=== PATIENT | male | born 1980 | race Caucasian/White ===

== ENCOUNTER → 2018-10-20 | Outpatient (CLI) | payer SELFPAY ==
[~2018-10-20] MED LIST: ALPR-557 PO; ALPR.5T PO; CATHETER FLUSH 10 ML SYR IV PRN; FOLI0.4T2 PO; MULT-974 PO; PHN100C PO; ZINC30CA PO
--- NOTE | 2018-10-20 12:49 | Diagnostic Imaging Report ---
INDICATION: Bilious vomiting. TECHNIQUE: Patient was administered 5.2 mCi technetium 99m Choletec intravenously and imaging over the abdomen was performed. At one hour, patient ingested 8 ounces of Ensure and gallbladder ejection fraction was calculated. FINDINGS: There is homogeneous uptake of activity by the liver with prompt excretion of activity into the gallbladder and common duct. There is normal passage of activity into the small bowel. Gallbladder ejection fraction is normal at 42%. IMPRESSION: Normal HIDA scan and gallbladder ejection fraction. Dictated by: Dictated on workstation # [id number]
== END ==
LOC: CARD 08:43
PROVIDERS: ATTEND Nurse Practitioner Community Health
DX: R11.14 Bilious vomiting (principal)
CPT/HCPCS: 78227

== ENCOUNTER 2019-01-26 10:47 | Emergency (ER) | payer SELFPAY ==
[~2019-01-26] VITALS: Ht 175.3 cm; Wt 98.9 kg
[~2019-01-26 10:47] MED LIST changes: -CATHETER FLUSH 10 ML SYR IV PRN
--- OUTSIDE RECORDS SUMMARY | 2019-01-26 10:51 | XMS REPORT | Clinical Summary ---
Author Author [facility] Organization [facility] Address Unknown Phone Unavailable Care Team Providers Care Baler Operator Name Role Phone Celestino Pollard RN Unavailable Unavailable Alexei Quezada MD PCP Unavailable Source Comments Some departments are not documenting in the electronic medical record. If you do not see the information that you expected, contact Release of Information in the Health Information Management department at [phone] for further assistance in locating additional records.[facility] Allergies No Known Allergies Medications End Date Status Medication Sig Dispensed Refills Start Date Active folic acid (FOLVITE) 1 mg Take 1 Tab by 90 Tab 6 tablet mouth daily. 4 Active thiamine (VITAMIN B-1) Take 1 Tab by 90 Tab 6 100 mg tablet mouth daily. 4 Active Problems Problem Noted Date Seizure 01/27/2014 Social History Date Tobacco Use Types Packs/Day Years Used Never Assessed Sex Assigned at Date Recorded Not on file Industry Job Start Date Occupation Not on file Not on file Not on file Travel End Travel History Travel Start No recent travel history available. Last Filed Vital Signs Time Taken Vital Sign Reading 01/30/2014 7:42 AM CDT Blood Pressure 101/64 01/30/2014 9:50 AM CDT Pulse 63 01/30/2014 7:42 AM CDT Temperature 36.6 C (97.8 F) - Respiratory Rate - 01/30/2014 7:42 AM CDT Oxygen Saturation 99% - Inhaled Oxygen - Concentration 01/30/2014 2:21 AM CDT Weight 70.1 kg (154 lb 9.6 oz) - Height - - Body Mass Index - Plan of Treatment Health Maintenance Due Date Last Done Comments PHYSICAL (COMPREHENSIVE) 1989 EXAM HIV SCREENING 1997 DTAP/TDAP VACCINES (1 - 2000 Tdap) INFLUENZA VACCINE 05/14/2019 Results Not on filefrom Last 3 Months Advance Directives Patient has advance care planning documents, and code status on file. For more information, please contact: [facility] [address] [place] [address] Date Inactivated Comments Code Status Date Activated 01/30/2014 12:19 PM Full Code 01/27/2014 4:41 PM Provider has discussed Code Status Yes w/Patient or Family?
--- OUTSIDE RECORDS SUMMARY | 2019-01-26 10:51 | XMS REPORT ---
Author Author YFN LU Organization [facility] Address [address] [place] [address] Care Team Providers Care Robotics Systems Engineer Name Role Phone YFN LU Unavailable PROBLEMS Type Condition ICD9-CM Code CJJ63-RD Code Onset Dates Condition Status SNOMED Code Problem Neck pain M54.2 Active 47231282 Problem Alcoholism /alcohol abuse F10.20 Active 6140082 Problem Essential hypertension I10 Active 04226281 Problem Chronic fatigue R53.82 Active 79769714 Problem Seasonal allergic rhinitis due to other allergic trigger J30.89 Active 586798370 Problem Chronic obstructive pulmonary disease, unspecified COPD type J44.9 Active 53486415 Problem Cigarette nicotine dependence without complication F17.210 Active 83201892 Problem Hypertension, benign I10 Active 26123237 Problem COPD exacerbation J44.1 Active 830698511 ALLERGIES No Known Allergies ENCOUNTERS Encounter Location Date Diagnosis [facility] [id number] [place] [address] Sep, [facility] [address] [address] Aug, [facility] [id number] [place] [address]- 0475 Aug, Hypertension, benign I10 ; Abdominal mass, right upper quadrant R19.01 and Cervicalgia M54.2 [facility] [id number] [place] [address]- 8172 Aug, [facility] [address] [address]- 14[address] Aug, Dizziness R42 [facility] [id number] [place] [address] 36290- 2082 Jul, [facility] [address] [address] Jun, Dizziness R42 [place] [address] [address]- [address] May, Dizziness R42 ; Chronic fatigue R53.82 and Essential hypertension I10 [place] [address] [address]- [address] May, [place] [address] [address]- 7653 Apr, Family history of early CAD Z82.49 [place] [address] [address]- [address] Jan, Family history of early CAD Z82.49 ; Chest pain on breathing R07.1 and Seasonal allergic rhinitis due to other allergic trigger J30.89 [place] [address] [address]- 65[address] Dec, [place] [address] 35[address]- 6367 Dec, Viral upper respiratory tract infection J06.9 [place] [address] 9[address]- 1144 Nov, Hypertension, benign I10 and Weight gain R63.5 [place] [id number] [place] [address]- 5728 Oct, [facility] [address] [address] Aug, Fatigue, unspecified type R53.83 and Family history of coronary artery disease Z82.49 [place] [address] [address] Jul, COPD exacerbation J44.1 and Neck pain M54.2 [place] [id number] [place] [address] 6[address]56- 9500 Jun, [place] [address] [address]- [address] Mar, [facility] [address] [address] Mar, [facility] [address] [address] February, Chronic obstructive pulmonary disease, unspecified COPD type J44.9 [facility] [address] [address] February, Neck pain M54.2 and Chronic obstructive pulmonary disease, unspecified COPD type J44.9 [facility] [address], [place] [address] 6[address] February, Dyspnea on exertion R06.09 [facility] [address], [place] [address] February, Hemoptysis R04.2 ; Dyspnea on exertion R06.09 ; Essential hypertension I10 ; Cigarette nicotine dependence without complication F17.210 ; Alcoholism /alcohol abuse F10.20 and Neck pain M54.2 [facility] [address], [place] [address] Nov, [facility] [address], [place] [address] Dec, [facility] [address], [place] [address] Jul, Genital warts A63.0 [facility] [address], [place] [address] Jan, [facility] [address], [place] [address] 285[address] Jan, [facility] [address], [place] [address] 132[address] Mar, [facility] [address], [place] [address] 53[address] Mar, [facility] [address], [place] [address] February, [facility] [id number], [place] [address] 8[address] February, [facility] [address], [place] [address] 9[address] February, [facility] [id number], [place] [address] 89[address] February, [facility] [address], [place] [address]- 83[address] Dec, [facility] [address], [place] [address] 16[address] Nov, [facility] [id number], [place] [address] 97[address] Nov, IMMUNIZATIONS No Known Immunizations SOCIAL HISTORY Never Assessed REASON FOR VISIT Hypertension follow up YUDITH Lee PLAN OF CARE VITAL SIGNS Height 70 in 2018-09-10 Weight 204.7 lbs 2018-09-10 Temperature 98.2 degrees Fahrenheit 2018-09-10 Heart Rate 78 bpm 2018-09-10 Respiratory Rate 18 2018-09-10 BMI 29.37 kg/m2 2018-09-10 Blood pressure systolic 138 mmHg 2018-09-10 Blood pressure diastolic 72 mmHg 2018-09-10 MEDICATIONS Medication Instructions Dosage Frequency Start Date End Date Duration Status Proventil HFA 108 (90 Base) MCG/ACT INHALE TWO PUFFS BY MOUTH FOUR TIMES DAILY NEEDED 25 Active Advair Diskus 250-50 MCG/DOSE INHALE ONE PUFF BY MOUTH TWICE DAILY 30 Active Chlorzoxazone 500 MG Orally Three times a day 1 tablet 8h Aug, 30 day(s) Active Lisinopril 20 mg Orally Once a day 1 tablet 24h May, 30 day(s) Active RESULTS No Results PROCEDURES No Known procedures INSTRUCTIONS MEDICATIONS ADMINISTERED No Known Medications MEDICAL (GENERAL) HISTORY Type Description Date Medical History alcohol abuse Medical History depression Medical History COPD Surgical History Spinal Tap at 02/2014 Hospitalization History pt was sent to [facility] for multiple seizures (alcohol related) February 2014 Hospitalization History pt overdosed on Ativan was at [facility] April 14, 2015
--- OUTSIDE RECORDS SUMMARY | 2019-01-26 10:51 | XMS REPORT ---
Author Author Migration, Doctor Organization [facility] Address Unknown Phone Unavailable Care Team Providers Care Engraver Seals Name Role Phone Migration, Doctor Unavailable Unavailable PROBLEMS Type Condition ICD9-CM Code PVM60-CO Code Onset Dates Condition Status SNOMED Code Problem Essential hypertension I10 Active 27317644 Problem Alcoholism /alcohol abuse F10.20 Active 5474614 Problem Cigarette nicotine dependence without complication F17.210 Active 75338726 Problem Chronic fatigue R53.82 Active 75849206 Problem Neck pain M54.2 Active 75018159 Problem GERD with esophagitis K21.0 Active 076312607 Problem Chronic obstructive pulmonary disease, unspecified COPD type J44.9 Active 20056165 Problem COPD exacerbation J44.1 Active 060708265 Problem Hypertension, benign I10 Active 99924999 Problem Seasonal allergic rhinitis due to other allergic trigger J30.89 Active 252329081 ALLERGIES No Information ENCOUNTERS Encounter Location Date Diagnosis [place] [id number] [place] [address]57- 7561 Dec, Cervicalgia M54.2 [place] [id number] [place] [address] 63902- 0231 18 Nov, 2018 GERD with esophagitis K21.0 and Cervicalgia M54.2 [place] [id number] [place] [address] 15273- 0507 12 Nov, 2018 [place] [id number] [place] [address] 97136- 5444 07 Nov, 2018 [place] [id number] [place] [address] 80138- 2096 Oct, Family history of early CAD Z82.49 ; Right upper quadrant pain R10.11 ; Chest pain on breathing R07.1 ; Bilious vomiting with nausea R11.14 and Seasonal allergic rhinitis due to other allergic trigger J30.89 [place] [id number] [place] [address] 85938- 0033 Oct, [facility] [address] [address]- [address] Oct, [facility] [address] 8[address]- 0512 Sep, [facility] [address] 6[address]- 7537 Sep, Right upper quadrant pain R10.11 and Bilious vomiting with nausea R11.14 [facility] [address] [address]- 6[address] Aug, [facility] [address] [address]47- 6351 Aug, Hypertension, benign I10 ; Abdominal mass, right upper quadrant R19.01 and Cervicalgia M54.2 [facility] [address] [address]- 6690 Aug, [facility] [address] 377[address]- 1890 Aug, Dizziness R42 [facility] [address] 407[address]- 4370 Jul, [facility] [address] 10238- 7691 Jun, Dizziness R42 [facility] [id number] [place] [address] 02647- 0380 May, Dizziness R42 ; Chronic fatigue R53.82 and Essential hypertension I10 [facility] [address] 35560- 6191 May, [facility] [address] [address]- 2318 Apr, Family history of early CAD Z82.49 [facility] [address] [address]- 1050 Jan, Family history of early CAD Z82.49 ; Chest pain on breathing R07.1 and Seasonal allergic rhinitis due to other allergic trigger J30.89 [facility] [id number] [place] [address] 81066- 5176 Dec, [place] [address] 260[address]- 1891 Dec, Viral upper respiratory tract infection J06.9 [facility] [address] 207[address]- 3805 Nov, Hypertension, benign I10 and Weight gain R63.5 [place] [address] 07[address]- 6409 Oct, [facility] [address] [address] Aug, Fatigue, unspecified type R53.83 and Family history of coronary artery disease Z82.49 [place] [id number] [place] [address] 76552- 7226 Jul, COPD exacerbation J44.1 and Neck pain M54.2 [place] [address] 24663- 5873 Jun, [place] [address] [address]65- 9665 Mar, [place] [id number] [place] [address] 55569- 6866 Mar, [place] [id number] [place] [address] 47652- 7291 February, Chronic obstructive pulmonary disease, unspecified COPD type J44.9 [place] [id number] [place] [address] 73886- 8675 February, Neck pain M54.2 and Chronic obstructive pulmonary disease, unspecified COPD type J44.9 [place] [address] 5[address]- 8880 15 Feb, 2017 Dyspnea on exertion R06.09 [facility] [address] [address]- [address] 02 Feb, 2017 Hemoptysis R04.2 ; Dyspnea on exertion R06.09 ; Essential hypertension I10 ; Cigarette nicotine dependence without complication F17.210 ; Alcoholism /alcohol abuse F10.20 and Neck pain M54.2 [facility] [id number] [place] [address] 08711- 6784 Nov, [facility] [address], [place] [address]- 2820 Dec, [facility] [id number] [place] [address] 61060- 7510 Jul, Genital warts A63.0 [facility] [address] [address]- 4[address] 14 Jan, 2015 [facility] [id number] [place] [address] 58003- 7757 Jan, [facility] [address], [place] [address]- 2553 Mar, [facility] [id number] [address]- 9119 Mar, [facility] [address] [address]- 4669 February, [facility] [address], [place] [address]- 4348 February, [facility] [address], [place] [address]- 7781 February, [facility] [address], [place] [address]- 6358 February, [facility] [address], [place] [address]- 5176 Dec, [facility] [id number] [place] [address]- 3752 Nov, [facility] [address] [facility] [id number] [place] [address] Nov, IMMUNIZATIONS No Known Immunizations SOCIAL HISTORY Never Assessed REASON FOR VISIT [place] [place]AN OF CARE VITAL SIGNS MEDICATIONS Medication Instructions Dosage Frequency Start Date End Date Duration Status Bactrim 400-80 mg take 2 tablets by oral route 4 times per day Nov, Active RESULTS No Results PROCEDURES No Known procedures INSTRUCTIONS MEDICATIONS ADMINISTERED No Known Medications MEDICAL (GENERAL) HISTORY Type Description Date Medical History alcohol abuse Medical History depression Medical History COPD Surgical History Spinal Tap at 02/2014 Hospitalization History pt was sent to [facility] for multiple seizures (alcohol related) February 2014 Hospitalization History pt overdosed on Ativan was at [facility] April 14, 2015
--- OUTSIDE RECORDS SUMMARY | 2019-01-26 10:52 | XMS REPORT ---
Author Author YFN LU Organization [facility] Address [address] [place] [address] Care Team Providers Care Fructose Loader Name Role Phone YFN LU Unavailable PROBLEMS Type Condition ICD9-CM Code HLE22-[place] Code Onset Dates Condition Status SNOMED Code Problem Neck pain M54.2 Active 14110930 Problem Alcoholism /alcohol abuse F10.20 Active 8152512 Problem Essential hypertension I10 Active 05477649 Problem Chronic fatigue R53.82 Active 11620720 Problem Seasonal allergic rhinitis due to other allergic trigger J30.89 Active 476305370 Problem Chronic obstructive pulmonary disease, unspecified COPD type J44.9 Active 87451105 Problem Cigarette nicotine dependence without complication F17.210 Active 81559570 Problem Hypertension, benign I10 Active 39681575 Problem COPD exacerbation J44.1 Active 085913738 ALLERGIES No Information ENCOUNTERS Encounter Location Date Diagnosis [facility] [address] [address] Aug, [facility] [address] [address]- 8116 Aug, Dizziness R42 [facility] [address] [address]- 37[address] Jul, [facility] [address] 8[address]60- 6068 Jun, Dizziness R42 [facility] [address] 08[address]- 0143 May, Dizziness R42 ; Chronic fatigue R53.82 and Essential hypertension I10 [facility] [address] [address]- [address] May, [facility] [address] 18[address]- 6975 Apr, Family history of early CAD Z82.49 [facility] [id number] [place] [address]42- 3556 Jan, Family history of early CAD Z82.49 ; Chest pain on breathing R07.1 and Seasonal allergic rhinitis due to other allergic trigger J30.89 [facility] [address] [address]- [address] Dec, [place] [address] [address]- 5743 Dec, Viral upper respiratory tract infection J06.9 [place] [address] [address]- 9833 Nov, Hypertension, benign I10 and Weight gain R63.5 [place] [address] 59[address]- 4270 Oct, [facility] [address] [address] Aug, Fatigue, unspecified type R53.83 and Family history of coronary artery disease Z82.49 [place] [address] 45[address]- 5125 Jul, COPD exacerbation J44.1 and Neck pain M54.2 [place] [id number] [place] [address] 69645- 5771 Jun, [place] [address] 236[address]- 4983 Mar, [place] [id number] [place] [address] 09098- 3706 Mar, [place] [address] 74[address]- 1148 February, Chronic obstructive pulmonary disease, unspecified COPD type J44.9 [place] [address] 0[address]- 3383 February, Neck pain M54.2 and Chronic obstructive pulmonary disease, unspecified COPD type J44.9 [facility] [address], [place] [address]- [address] 15 Feb, 2017 Dyspnea on exertion R06.09 [facility] [id number], [place] [address]- 27[address] 02 Feb, 2017 Hemoptysis R04.2 ; Dyspnea on exertion R06.09 ; Essential hypertension I10 ; Cigarette nicotine dependence without complication F17.210 ; Alcoholism /alcohol abuse F10.20 and Neck pain M54.2 [facility] [id number], [place] [address]- 7625 Nov, [facility] [id number] [place] [address] 88026- 5945 Dec, [facility] [id number] [place] [address] 03099- 6994 Jul, Genital warts A63.0 [facility] [address] [place] [address] 52836- 4689 Jan, [facility] [id number] [place] [address] 52459- 4243 Jan, [facility] [address], [place] [address]- 8047 Mar, [facility] [address], [place] [address]- 4236 Mar, [facility] [address], [place] [address]- 5451 February, [facility] [id number] [place] [address] 14755- 8938 February, [facility] [address], [place] [address]- 7181 February, [facility] [address] [place] [address] 95433- 1528 February, [facility] [address] [facility] [id number], [place] [address]- 0536 Dec, [facility] [address] [facility] [id number], [place] [address]- 2286 Nov, [facility] [address] [facility] [id number], [place] [address]- 8206 Nov, IMMUNIZATIONS No Known Immunizations SOCIAL HISTORY Never Assessed REASON FOR VISIT Refill request PLAN OF CARE VITAL SIGNS MEDICATIONS Medication Instructions Dosage Frequency Start Date End Date Duration Status Lisinopril 20 mg Orally Once a day 1 tablet 24h May, 30 day(s) Active RESULTS No Results PROCEDURES No Known procedures INSTRUCTIONS MEDICATIONS ADMINISTERED No Known Medications MEDICAL (GENERAL) HISTORY Type Description Date Medical History alcohol abuse Medical History depression Medical History COPD Surgical History Spinal Tap at 02/2014 Hospitalization History pt was sent to [facility] for multiple seizures (alcohol related) February 2014 Hospitalization History pt overdosed on Ativan was at [facility] April 14, 2015
--- OUTSIDE RECORDS SUMMARY | 2019-01-26 10:52 | XMS REPORT ---
Author Author NAVYA DIANA Organization [facility] Address [address] [place] [address] Care Team Providers Care Fulfillment Representative Name Role Phone NAVYA DIANA Unavailable PROBLEMS Type Condition ICD9-CM Code [id number] Code Onset Dates Condition Status SNOMED Code Problem Neck pain M54.2 Active 40269336 Problem Alcoholism /alcohol abuse F10.20 Active 1429441 Problem Essential hypertension I10 Active 47756544 Problem Chronic fatigue R53.82 Active 81207847 Problem Seasonal allergic rhinitis due to other allergic trigger J30.89 Active 335860487 Problem Chronic obstructive pulmonary disease, unspecified COPD type J44.9 Active 94988117 Problem Cigarette nicotine dependence without complication F17.210 Active 14536756 Problem Hypertension, benign I10 Active 05182113 Problem COPD exacerbation J44.1 Active 485015892 ALLERGIES No Information ENCOUNTERS Encounter Location Date Diagnosis [place] [address] [address] Aug, [place] [address] 47581- 5962 Aug, [facility] [address] 44[address]- 8985 Aug, Dizziness R42 [facility] [address] [place] [id number] [place] [address] 14694- 9540 Jul, [facility] [address] 93046- 3893 Jun, Dizziness R42 [facility] [address] 99868- 4972 May, Dizziness R42 ; Chronic fatigue R53.82 and Essential hypertension I10 [facility] [address] 54[address]- 4430 May, [facility] [address] [place] [address] 04814- 0925 Apr, Family history of early CAD Z82.49 [facility] [address] [place] [id number] [place] [address] 78872- 9713 Jan, Family history of early CAD Z82.49 ; Chest pain on breathing R07.1 and Seasonal allergic rhinitis due to other allergic trigger J30.89 [place] [address] [place] [id number] [place] [address] 92455- 1152 Dec, [place] [address] 58653- 8231 Dec, Viral upper respiratory tract infection J06.9 [place] [address] [place] [id number] [place] [address] 33880- 5947 Nov, Hypertension, benign I10 and Weight gain R63.5 [place] [address] [place] [id number] [place] [address] 13630- 3158 Oct, [facility] [address] [place] [id number] [place] [address] 34590 -5891 Aug, Fatigue, unspecified type R53.83 and Family history of coronary artery disease Z82.49 [place] [address] [place] [id number] [place] [address] 48106- 9982 Jul, COPD exacerbation J44.1 and Neck pain M54.2 [place] [address] [place] [id number] [place] [address] 57832- 9189 Jun, [place] [address] [place] [address] [place] [address] 00552- 1904 Mar, [place] [address] [place] [id number] [place] [address] 42929- 3384 Mar, [place] [address] [place] [id number] [place] [address] 61381- 6295 February, Chronic obstructive pulmonary disease, unspecified COPD type J44.9 [facility] [address] [address] 16 Feb, 2017 Neck pain M54.2 and Chronic obstructive pulmonary disease, unspecified COPD type J44.9 [facility] [address] [place] [address] 29[address] 15 Feb, 2017 Dyspnea on exertion R06.09 [facility] [address] [place] [id number] [place] [address] 53742- 6888 02 Feb, 2017 Hemoptysis R04.2 ; Dyspnea on exertion R06.09 ; Essential hypertension I10 ; Cigarette nicotine dependence without complication F17.210 ; Alcoholism /alcohol abuse F10.20 and Neck pain M54.2 [facility] [address] [place] [id number] [place] [address] 70380- 2107 Nov, [facility] [address] [place] [id number] [place] [address] 24769- 0827 Dec, [facility] [address] [place] [id number] [place] [address] 80354- 4216 Jul, Genital warts A63.0 [facility] [address] [place] [id number] [place] [address] 05510- 2816 14 Jan, 2015 [facility] [address] [place] [id number] [place] [address] 29225- 0177 Jan, [facility] [address] [place] [id number] [place] [address] 81476- 1745 Mar, [facility] [address] [place] [id number] [place] [address] 96426- 0352 Mar, [facility] [address] [place] [id number] [place] [address] 73608- 8211 February, [facility] [address] [place] [id number] [place] [address] 79608- 6604 February, [facility] [address] [place] [id number] [place] [address] 82409- 6366 February, [facility] [address] [facility] [id number] [address]66 February, [facility] [address] [facility] [id number] [address]- 2896 Dec, [facility] [address] [facility] [id number], [place] [address]- 2421 Nov, [facility] [address] [facility] [id number], [place] [address] 7968 Nov, IMMUNIZATIONS No Known Immunizations SOCIAL HISTORY Never Assessed REASON FOR VISIT refill request PLAN OF CARE VITAL SIGNS MEDICATIONS Medication Instructions Dosage Frequency Start Date End Date Duration Status Advair Diskus 250-50 MCG/DOSE INHALE ONE PUFF BY MOUTH TWICE DAILY 30 Active RESULTS No Results PROCEDURES No Known procedures INSTRUCTIONS MEDICATIONS ADMINISTERED No Known Medications MEDICAL (GENERAL) HISTORY Type Description Date Medical History alcohol abuse Medical History depression Medical History COPD Surgical History Spinal Tap at 02/2014 Hospitalization History pt was sent to [facility] for multiple seizures (alcohol related) February 2014 Hospitalization History pt overdosed on Ativan was at [facility] April 14, 2015
--- OUTSIDE RECORDS SUMMARY | 2019-01-26 10:52 | XMS REPORT ---
Author Author YFN LU Organization [facility] Address [address] [place] [address] Care Team Providers Care Assembler Clip On Sunglasses Name Role Phone YFN LU Unavailable PROBLEMS Type Condition ICD9-CM Code [id number] Code Onset Dates Condition Status SNOMED Code Problem Neck pain M54.2 Active 83668492 Problem Alcoholism /alcohol abuse F10.20 Active 7795210 Problem Essential hypertension I10 Active 88162468 Problem Chronic fatigue R53.82 Active 31693292 Problem Seasonal allergic rhinitis due to other allergic trigger J30.89 Active 174763904 Problem Chronic obstructive pulmonary disease, unspecified COPD type J44.9 Active 71845711 Problem Cigarette nicotine dependence without complication F17.210 Active 57690898 Problem Hypertension, benign I10 Active 29493164 Problem COPD exacerbation J44.1 Active 345996204 ALLERGIES No Information ENCOUNTERS Encounter Location Date Diagnosis [place] [address] [address]21- 7609 Jul, [place] [address] 37205- 2615 Jul, [place] [address] 03048- 5835 Jun, Dizziness R42 [place] [address] 79425- 4227 May, Dizziness R42 ; Chronic fatigue R53.82 and Essential hypertension I10 [place] [address] 94896- 3325 May, [place] [address] 73064- 1331 Apr, Family history of early CAD Z82.49 [place] [address] 49655- 0982 Jan, Family history of early CAD Z82.49 ; Chest pain on breathing R07.1 and Seasonal allergic rhinitis due to other allergic trigger J30.89 [place] [address] [place] [id number] [place] [address] 19298- 1814 Dec, [place] [address] [place] [id number] [place] [address] 12663- 6781 Dec, Viral upper respiratory tract infection J06.9 [place] [address] [place] [id number] [place] [address] 44838- 6330 Nov, Hypertension, benign I10 and Weight gain R63.5 [place] [address] [place] [id number] [place] [address] 06651- 2205 Oct, [facility] [address] [place] [id number] [place] [address] 86006 -4192 Aug, Fatigue, unspecified type R53.83 and Family history of coronary artery disease Z82.49 [place] [address] [place] [id number] [place] [address] 92279- 5566 Jul, COPD exacerbation J44.1 and Neck pain M54.2 [place] [address] [place] [id number] [place] [address] 92409- 2006 Jun, [place] [address] [place] [id number] [place] [address] 40696- 7040 Mar, [place] [address] [place] [id number] [place] [address] 99594- 5393 Mar, [place] [address] [place] [id number] [place] [address] 20583- 3853 February, Chronic obstructive pulmonary disease, unspecified COPD type J44.9 [place] [address] [place] [id number] [place] [address] 14413- 6554 February, Neck pain M54.2 and Chronic obstructive pulmonary disease, unspecified COPD type J44.9 [place] [address] [place] [address]- 2982 15 Feb, 2017 Dyspnea on exertion R06.09 [facility] [address] [place] [id number] [place] [address] 21319- 7500 02 Feb, 2017 Hemoptysis R04.2 ; Dyspnea on exertion R06.09 ; Essential hypertension I10 ; Cigarette nicotine dependence without complication F17.210 ; Alcoholism /alcohol abuse F10.20 and Neck pain M54.2 [facility] [address] [place] [id number] [place] [address] 48559- 3188 Nov, [facility] [address] [place] [id number] [place] [address] 15370- 0959 Dec, [facility] [address] [place] [id number] [place] [address] 95574- 7241 Jul, Genital warts A63.0 [facility] [address] [place] [id number] [place] [address] 62486- 8281 Jan, [facility] [address] [place] [id number] [place] [address] 69486- 3693 Jan, [facility] [address] [place] [id number] [place] [address] 63281- 9740 Mar, [facility] [address] [place] [id number] [place] [address] 31323- 4162 Mar, [facility] [address] [place] [id number] [place] [address] 86430- 3556 February, [facility] [address] [place] [id number] [place] [address] 73277- 9578 February, [facility] [address] [place] [id number] [place] [address] 87260- 9144 February, [facility] [address] [place] [id number] [place] [address] 13923- 0035 February, [facility] [address] [place] [id number] [place] [address] 05907- 1872 Dec, [facility] [address] [facility] [id number] [address]- 2679 Nov, [facility] [address] [facility] [id number] [address]- 7043 Nov, IMMUNIZATIONS No Known Immunizations SOCIAL HISTORY Never Assessed REASON FOR VISIT Medication refill request PLAN OF CARE VITAL SIGNS MEDICATIONS Unknown Medications RESULTS No Results PROCEDURES No Known procedures INSTRUCTIONS MEDICATIONS ADMINISTERED No Known Medications MEDICAL (GENERAL) HISTORY Type Description Date Medical History alcohol abuse Medical History depression Medical History COPD Surgical History Spinal Tap at 02/2014 Hospitalization History pt was sent to [facility] for multiple seizures (alcohol related) February 2014 Hospitalization History pt overdosed on Ativan was at [facility] April 14, 2015
--- OUTSIDE RECORDS SUMMARY | 2019-01-26 10:52 | XMS REPORT ---
Author Author YFN LU Organization [facility] Address [address] [place] [address] Care Team Providers Care Log Chipper Operator Name Role Phone YFN LU Unavailable PROBLEMS Type Condition ICD9-CM Code HAM81-UC Code Onset Dates Condition Status SNOMED Code Problem Neck pain M54.2 Active 30754172 Problem Alcoholism /alcohol abuse F10.20 Active 4414621 Problem Essential hypertension I10 Active 24384338 Problem Chronic fatigue R53.82 Active 75906298 Problem Seasonal allergic rhinitis due to other allergic trigger J30.89 Active 303268704 Problem Chronic obstructive pulmonary disease, unspecified COPD type J44.9 Active 85151097 Problem Cigarette nicotine dependence without complication F17.210 Active 96459796 Problem Hypertension, benign I10 Active 20099927 Problem COPD exacerbation J44.1 Active 220215910 ALLERGIES No Information ENCOUNTERS Encounter Location Date Diagnosis [place] [address] 78941- 0965 Sep, [facility] [address] 12686- 2045 Aug, [facility] [address] 09127- 2262 Aug, Hypertension, benign I10 ; Abdominal mass, right upper quadrant R19.01 and Cervicalgia M54.2 [facility] [address] [place] [id number] [place] [address] 06705- 4453 Aug, [facility] [address] 19687- 5369 Aug, Dizziness R42 [facility] [address] 58402- 1809 Jul, [facility] [address] 67236- 4781 Jun, Dizziness R42 [place] [address] 93557- 0638 May, Dizziness R42 ; Chronic fatigue R53.82 and Essential hypertension I10 [place] [address] 34222- 5962 May, [place] [address] 50158- 0033 Apr, Family history of early CAD Z82.49 [place] [address] 22892- 2799 Jan, Family history of early CAD Z82.49 ; Chest pain on breathing R07.1 and Seasonal allergic rhinitis due to other allergic trigger J30.89 [place] [address] 86745- 2698 Dec, [place] [address] 45267- 9695 Dec, Viral upper respiratory tract infection J06.9 [place] [address] 51767- 2648 Nov, Hypertension, benign I10 and Weight gain R63.5 [place] [address] [place] [id number] [place] [address] 40279- 1305 Oct, [facility] [address] [place] [id number] [place] [address] 43998 -7279 Aug, Fatigue, unspecified type R53.83 and Family history of coronary artery disease Z82.49 [place] [address] 16213- 8003 Jul, COPD exacerbation J44.1 and Neck pain M54.2 [place] [address] [place] [id number] [place] [address] 81344- 0208 Jun, [place] [address] 96603- 5434 Mar, [facility] [address], [place] [address]- 3109 Mar, [facility] [address] [place] [address] 86925- 0094 February, Chronic obstructive pulmonary disease, unspecified COPD type J44.9 [facility] [address], [place] [address]- 0014 February, Neck pain M54.2 and Chronic obstructive pulmonary disease, unspecified COPD type J44.9 [facility] [address], [place] [address]- 6000 February, Dyspnea on exertion R06.09 [facility] [address] [place] [id number] [address]- 2134 February, Hemoptysis R04.2 ; Dyspnea on exertion R06.09 ; Essential hypertension I10 ; Cigarette nicotine dependence without complication F17.210 ; Alcoholism /alcohol abuse F10.20 and Neck pain M54.2 [facility] [address], [place] [address]- 6773 Nov, [facility] [address], [place] [address]- 1546 Dec, [facility] [address] [address]- 2634 Jul, Genital warts A63.0 [facility] [address], [place] [address]- 0132 Jan, [facility] [address] [address]- 1045 Jan, [facility] [address] [place] [id number] [place] [address] 22757- 0949 Mar, [facility] [address], [place] [address]- 5268 Mar, [facility] [address] [place] [id number] [address]- 8355 February, [facility] [address] [place] [id number] [address]- 7518 February, [facility] [address] 1393 February, [facility] [address] [place] [id number] [address]- 7465 February, [facility] [address] [address]- 4936 Dec, [facility] [address] [place] [id number] [address]- 3089 Nov, [facility] [address] [place] [id number], [place] [address]- 9086 Nov, IMMUNIZATIONS No Known Immunizations SOCIAL HISTORY Never Assessed REASON FOR VISIT Requesting return call// PLAN OF CARE VITAL SIGNS MEDICATIONS Unknown Medications RESULTS No Results PROCEDURES No Known procedures INSTRUCTIONS MEDICATIONS ADMINISTERED No Known Medications MEDICAL (GENERAL) HISTORY Type Description Date Medical History alcohol abuse Medical History depression Medical History COPD Surgical History Spinal Tap at 02/2014 Hospitalization History pt was sent to [facility] for multiple seizures (alcohol related) February 2014 Hospitalization History pt overdosed on Ativan was at [facility] April 14, 2015
--- OUTSIDE RECORDS SUMMARY | 2019-01-26 10:52 | XMS REPORT ---
Author Author YFN LU Organization [facility] Address [address] [place] [address] Care Team Providers Care Reliability Technologist Name Role Phone YFN LU Unavailable PROBLEMS Type Condition ICD9-CM Code QIN83-BC Code Onset Dates Condition Status SNOMED Code Problem Neck pain M54.2 Active 92258597 Problem Alcoholism /alcohol abuse F10.20 Active 7952291 Problem Essential hypertension I10 Active 64573365 Problem Chronic fatigue R53.82 Active 25978615 Problem Seasonal allergic rhinitis due to other allergic trigger J30.89 Active 141034366 Problem Chronic obstructive pulmonary disease, unspecified COPD type J44.9 Active 64364925 Problem Cigarette nicotine dependence without complication F17.210 Active 82667678 Problem Hypertension, benign I10 Active 08281109 Problem COPD exacerbation J44.1 Active 329221640 ALLERGIES No Known Allergies ENCOUNTERS Encounter Location Date Diagnosis [place] [id number] [place] [address] 11658- 8195 Jun, Dizziness R42 [place] [id number] [place] [address] 90810- 3295 May, Dizziness R42 ; Chronic fatigue R53.82 and Essential hypertension I10 [place] [id number] [place] [address] 25341- 9635 May, [place] [id number] [place] [address] 60555- 7053 Apr, Family history of early CAD Z82.49 [place] [id number] [place] [address] 58791- 5901 Jan, Family history of early CAD Z82.49 ; Chest pain on breathing R07.1 and Seasonal allergic rhinitis due to other allergic trigger J30.89 [place] [id number] [place] [address] 23281- 0876 Dec, [facility] [address] [place] [address] 68024- 2711 Dec, Viral upper respiratory tract infection J06.9 [facility] [id number] [place] [address] 75575- 0523 Nov, Hypertension, benign I10 and Weight gain R63.5 [place] [id number] [place] [address] 65791- 5503 Oct, [facility] [id number] [place] [address] 41687 -5029 Aug, Fatigue, unspecified type R53.83 and Family history of coronary artery disease Z82.49 [place] [id number] [place] [address] 96831- 0445 Jul, COPD exacerbation J44.1 and Neck pain M54.2 [place] [id number] [place] [address] 32991- 5894 Jun, [place] [id number] [place] [address] 49227- 5744 Mar, [place] [id number] [place] [address] 70612- 8138 Mar, [place] [id number] [place] [address] 37043- 7161 February, Chronic obstructive pulmonary disease, unspecified COPD type J44.9 [place] [id number] [place] [address] 76202- 4420 February, Neck pain M54.2 and Chronic obstructive pulmonary disease, unspecified COPD type J44.9 [place] [id number] [place] [address] 80331- 9883 February, Dyspnea on exertion R06.09 [place] [id number] [place] [address] 77849- 4871 02 Feb, 2017 Hemoptysis R04.2 ; Dyspnea on exertion R06.09 ; Essential hypertension I10 ; Cigarette nicotine dependence without complication F17.210 ; Alcoholism /alcohol abuse F10.20 and Neck pain M54.2 [facility] [id number] [place] [address] 15582- 7623 Nov, [facility] [id number] [place] [address] 15952- 3911 Dec, [facility] [id number] [place] [address] 75089- 2855 Jul, Genital warts A63.0 [facility] [id number] [place] [address] 47153- 6147 Jan, [facility] [id number] [place] [address] 28940- 2574 Jan, [facility] [id number] [place] [address] 77901- 9091 Mar, [facility] [id number] [place] [address] 26535- 8105 Mar, [facility] [id number] [place] [address] 35724- 9113 February, [facility] [id number] [place] [address] 71886- 1639 February, [facility] [id number] [place] [address] 55206- 2222 February, [facility] [id number] [place] [address] 67239- 3953 February, [facility] [id number] [place] [address] 35016- 9199 Dec, [facility] [id number] [place] [address] 67696- 3285 Nov, [facility] [id number] [place] [address] 20222- 6399 Nov, IMMUNIZATIONS No Known Immunizations SOCIAL HISTORY Never Assessed REASON FOR VISIT elevated BP with dizzy spells Pt c/o having a couple of episodes of dizzy spells, thinks it might be due to the b/p meds also having itching, states has also had chest tightness and arm pain the last couple of days as well YUDITH Kilgore PLAN OF CARE Activity Details Follow Up 4 Weeks Reason:htn VITAL SIGNS Height 70 in 2018-05-21 Weight 205.1 lbs 2018-05-21 Temperature 98.3 degrees Fahrenheit 2018-05-21 Heart Rate 72 bpm 2018-05-21 Respiratory Rate 18 2018-05-21 BMI 29.43 kg/m2 2018-05-21 Blood pressure systolic 124 mmHg 2018-05-21 Blood pressure diastolic 86 mmHg 2018-05-21 MEDICATIONS Medication Instructions Dosage Frequency Start Date End Date Duration Status Cetirizine HCl 10 mg Orally Once a day 1 tablet 24h Jan, Jul, 30 day(s) Active Proventil HFA 108 (90 Base) MCG/ACT INHALE TWO PUFFS BY MOUTH FOUR TIMES DAILY NEEDED 25 Active Advair Diskus 250-50 MCG/DOSE INHALE ONE PUFF BY MOUTH TWICE DAILY 30 Active Lisinopril 20 mg Orally Once a day 1 tablet 24h May, 30 day(s) Active Baclofen 20 MG Orally 2 times a day 1 tablet with food or milk 12h Jan, Sep, 30 day(s) Active RESULTS No Results PROCEDURES No Known procedures INSTRUCTIONS MEDICATIONS ADMINISTERED No Known Medications MEDICAL (GENERAL) HISTORY Type Description Date Medical History alcohol abuse Medical History depression Medical History COPD Surgical History Spinal Tap at 02/2014 Hospitalization History pt was sent to [facility] for multiple seizures (alcohol related) February 2014 Hospitalization History pt overdosed on Ativan was at [facility] April 14, 2015
--- OUTSIDE RECORDS SUMMARY | 2019-01-26 10:52 | XMS REPORT ---
Author Author YFN LU Organization [facility] Address [address] [place] [address] Care Team Providers Care Board Member Name Role Phone YFN LU Unavailable PROBLEMS Type Condition ICD9-CM Code WKL86-HJ Code Onset Dates Condition Status SNOMED Code Problem Neck pain M54.2 Active 25058955 Problem Alcoholism /alcohol abuse F10.20 Active 9266956 Problem Essential hypertension I10 Active 13706947 Problem Chronic fatigue R53.82 Active 02637953 Problem Seasonal allergic rhinitis due to other allergic trigger J30.89 Active 179434076 Problem Chronic obstructive pulmonary disease, unspecified COPD type J44.9 Active 32153528 Problem Cigarette nicotine dependence without complication F17.210 Active 94528005 Problem Hypertension, benign I10 Active 08272812 Problem COPD exacerbation J44.1 Active 570763992 ALLERGIES No Information ENCOUNTERS Encounter Location Date Diagnosis [place] [id number] [place] [address] 85781- 2620 Jun, Dizziness R42 [place] [id number] [place] [address] 99096- 7212 May, Dizziness R42 ; Chronic fatigue R53.82 and Essential hypertension I10 [place] [id number] [place] [address] 52534- 1044 May, [place] [id number] [place] [address] 59107- 0061 Apr, Family history of early CAD Z82.49 [place] [address] 53842- 7399 Jan, Family history of early CAD Z82.49 ; Chest pain on breathing R07.1 and Seasonal allergic rhinitis due to other allergic trigger J30.89 [place] [id number] [place] [address] 35757- 6470 Dec, [facility] [address] [address]- 3536 Dec, Viral upper respiratory tract infection J06.9 [facility] [id number] [place] [address] 22368- 6436 Nov, Hypertension, benign I10 and Weight gain R63.5 [place] [id number] [place] [address] 48077- 0037 Oct, [facility]ALK IN [facility] [address] [place] [address] 99352 -8472 Aug, Fatigue, unspecified type R53.83 and Family history of coronary artery disease Z82.49 [place] [id number] [place] [address] 06704- 6979 Jul, COPD exacerbation J44.1 and Neck pain M54.2 [place] [id number] [place] [address] 07412- 0871 Jun, [place] [id number] [place] [address] 87513- 0807 Mar, [place] [id number] [place] [address] 20454- 8093 Mar, [place] [address] [address]- 1692 February, Chronic obstructive pulmonary disease, unspecified COPD type J44.9 [place] [address] [place] [address] 41986- 6981 February, Neck pain M54.2 and Chronic obstructive pulmonary disease, unspecified COPD type J44.9 [place] [id number] [place] [address] 34527- 7470 February, Dyspnea on exertion R06.09 [place] [address] [address]- 8059 02 Feb, 2017 Hemoptysis R04.2 ; Dyspnea on exertion R06.09 ; Essential hypertension I10 ; Cigarette nicotine dependence without complication F17.210 ; Alcoholism /alcohol abuse F10.20 and Neck pain M54.2 [facility] [id number] [place] [address] 41752- 4189 Nov, [facility] [id number] [place] [address] 21404- 0236 Dec, [facility] [id number] [place] [address] 51357- 5853 Jul, Genital warts A63.0 [facility] [id number] [place] [address] 65110- 2986 Jan, [facility] [id number] [place] [address] 54225- 5867 Jan, [facility] [id number] [place] [address] 83735- 4757 Mar, [facility] [id number] [place] [address] 68222- 3973 Mar, [facility] [id number] [place] [address] 73647- 3193 February, [facility] [id number] [place] [address] 90756- 3443 February, [facility] [id number] [place] [address] 77148- 7662 February, [facility] [id number] [place] [address] 16653- 5565 February, [facility] [id number] [place] [address] 89549- 4104 Dec, [facility] [id number] [place] [address] 72932- 2869 Nov, [facility] [id number] [place] [address] 48724- 6603 Nov, IMMUNIZATIONS No Known Immunizations SOCIAL HISTORY Never Assessed REASON FOR VISIT Medication refill request PLAN OF CARE VITAL SIGNS MEDICATIONS Medication Instructions Dosage Frequency Start Date End Date Duration Status Lisinopril 20 mg Orally Once a day 1 tablet 24h 08 May, 2018 30 day(s) Active Baclofen 20 MG Orally 2 times a day 1 tablet with food or milk 12h Jan, 30 day(s) Active RESULTS No Results PROCEDURES No Known procedures INSTRUCTIONS MEDICATIONS ADMINISTERED No Known Medications MEDICAL (GENERAL) HISTORY Type Description Date Medical History alcohol abuse Medical History depression Medical History COPD Surgical History Spinal Tap at 02/2014 Hospitalization History pt was sent to [facility] for multiple seizures (alcohol related) February 2014 Hospitalization History pt overdosed on Ativan was at [facility] April 14, 2015
--- OUTSIDE RECORDS SUMMARY | 2019-01-26 10:53 | XMS REPORT ---
Author Author NAVYA DIANA Organization [facility] Address [address] [place] [address] Care Team Providers Care Android Architect Name Role Phone NAVYA DIANA Unavailable PROBLEMS Type Condition ICD9-CM Code WTR00-AD Code Onset Dates Condition Status SNOMED Code Problem Essential hypertension I10 Active 92909886 Problem Neck pain M54.2 Active 76767546 Problem Seasonal allergic rhinitis due to other allergic trigger J30.89 Active 474226290 Problem Hypertension, benign I10 Active 40315352 Problem Cigarette nicotine dependence without complication F17.210 Active 62443053 Problem Alcoholism /alcohol abuse F10.20 Active 1123203 Problem COPD exacerbation J44.1 Active 917730310 Problem Chronic obstructive pulmonary disease, unspecified COPD type J44.9 Active 59020021 ALLERGIES No Information ENCOUNTERS Encounter Location Date Diagnosis [place] [address], [place] [address]- 0682 Apr, [place] [id number] [place] [address] 69813- 6122 Apr, Family history of early CAD Z82.49 [place] [address] [place] [address] 83766- 6382 Jan, Family history of early CAD Z82.49 ; Chest pain on breathing R07.1 and Seasonal allergic rhinitis due to other allergic trigger J30.89 [place] [id number] [address]- 1424 Dec, [place] [id number] [place] [address] 78609- 1445 Dec, Viral upper respiratory tract infection J06.9 [place] [id number] [place] [address] 53183- 9988 Nov, Hypertension, benign I10 and Weight gain R63.5 [facility] [address], [place] [address]- 5577 Oct, [facility] [address] [place] [address] 92857 -1983 Aug, Fatigue, unspecified type R53.83 and Family history of coronary artery disease Z82.49 [facility] [id number] [place] [address] 41076- 5427 Jul, COPD exacerbation J44.1 and Neck pain M54.2 [place] [id number] [place] [address] 78540- 9012 Jun, [place] [id number] [place] [address] 15687- 5236 Mar, [place] [id number] [place] [address] 63846- 2183 Mar, [facility] [id number] [place] [address] 34768- 5242 February, Chronic obstructive pulmonary disease, unspecified COPD type J44.9 [place] [id number] [place] [address] 91426- 5311 February, Neck pain M54.2 and Chronic obstructive pulmonary disease, unspecified COPD type J44.9 [place] [id number] [place] [address] 54300- 3916 February, Dyspnea on exertion R06.09 [facility] [id number] [place] [address] 45181- 7848 02 Feb, 2017 Hemoptysis R04.2 ; Dyspnea on exertion R06.09 ; Essential hypertension I10 ; Cigarette nicotine dependence without complication F17.210 ; Alcoholism /alcohol abuse F10.20 and Neck pain M54.2 [place] [address] [place] [address] 27507- 6593 Nov, [place] [address] [place] [address]- 7615 10 Dec, 2015 [facility] [address], [place] [address]- 3421 Jul, Genital warts A63.0 [facility] [address], [place] [address]- 7472 Jan, [facility] [address], [place] [address]- 7354 Jan, [facility] [address], [place] [address]- 2059 Mar, [facility] [address], [place] [address]- 3764 Mar, [facility] [address], [place] [address]- 6191 February, [facility] [address], [place] [address]- 4414 February, [facility] [address], [place] [address]- 8211 February, [facility] [address], [place] [address]- 0318 February, [facility] [address], [place] [address]- 1360 Dec, [facility] [address], [place] [address]- 1630 Nov, [facility] [id number], [place] [address]- 2383 Nov, IMMUNIZATIONS No Known Immunizations SOCIAL HISTORY Never Assessed REASON FOR VISIT LVM PLAN OF CARE VITAL SIGNS MEDICATIONS Unknown Medications RESULTS No Results PROCEDURES No Known procedures INSTRUCTIONS MEDICATIONS ADMINISTERED No Known Medications MEDICAL (GENERAL) HISTORY Type Description Date Medical History alcohol abuse Medical History depression Medical History COPD Surgical History Spinal Tap at 02/2014 Hospitalization History pt was sent to [facility] for multiple seizures (alcohol related) February 2014 Hospitalization History pt overdosed on Ativan was at [facility] April 14, 2015
--- OUTSIDE RECORDS SUMMARY | 2019-01-26 10:53 | XMS REPORT ---
Author Author YFN LU Organization [facility] Address [address] [place] [address] Care Team Providers Care Staff Development Manager Name Role Phone YFN LU Unavailable PROBLEMS Type Condition ICD9-CM Code [id number] Code Onset Dates Condition Status SNOMED Code Problem Essential hypertension I10 Active 97482080 Problem Neck pain M54.2 Active 43198759 Problem Seasonal allergic rhinitis due to other allergic trigger J30.89 Active 172459499 Problem Hypertension, benign I10 Active 56309261 Problem Cigarette nicotine dependence without complication F17.210 Active 76569660 Problem Alcoholism /alcohol abuse F10.20 Active 6098312 Problem COPD exacerbation J44.1 Active 136230386 Problem Chronic obstructive pulmonary disease, unspecified COPD type J44.9 Active 23947155 ALLERGIES No Known Allergies ENCOUNTERS Encounter Location Date Diagnosis [address] [address] Apr, Family history of early CAD Z82.[address] [address] Jan, Family history of early CAD Z82.49 ; Chest pain on breathing R07.1 and Seasonal allergic rhinitis due to other allergic trigger J30.[address] [place] [address] 81254- 6104 Dec, [place] [id number] [place] [address] 65489- 5377 Dec, Viral upper respiratory tract infection J06.9 [place] [id number] [place] [address] 05411- 0135 Nov, Hypertension, benign I10 and Weight gain R63.[address] [address] Oct, [facility] [address] [address] Aug, Fatigue, unspecified type R53.83 and Family history of coronary artery disease Z82.49 [facility] [address] [address] Jul, COPD exacerbation J44.1 and Neck pain M54.2 [facility] [id number] [place] [address] 72728- 6414 Jun, [facility] [id number] [place] [address] 88856- 3616 Mar, [facility] [id number] [place] [address] 04133- 7737 Mar, [facility] [id number] [place] [address] 14046- 6031 February, Chronic obstructive pulmonary disease, unspecified COPD type J44.9 [facility] [id number] [place] [address] 91011- 7843 February, Neck pain M54.2 and Chronic obstructive pulmonary disease, unspecified COPD type J44.9 [facility] [address] [place] [address] 52649- 3611 February, Dyspnea on exertion R06.09 [facility] [id number] [place] [address] 88059- 3051 02 Feb, 2017 Hemoptysis R04.2 ; Dyspnea on exertion R06.09 ; Essential hypertension I10 ; Cigarette nicotine dependence without complication F17.210 ; Alcoholism /alcohol abuse F10.20 and Neck pain M54.2 [facility] [id number] [place] [address] 73696- 4577 Nov, [facility] [address] [address] 06[address] Dec, [facility] [id number] [place] [address] 82589- 5285 Jul, Genital warts A63.0 [facility] [address] [address] 13[address] Jan, [facility] [address] [address] Jan, [facility] [address] [address] Mar, [facility] [address] [address] Mar, [facility] [address] [place] [address] 927006- 0128 February, [facility] [address] [place] [address] 89765- 4944 February, [facility] [id number] [place] [address] 216864- 0612 February, [facility] [address] [address] [address] February, [facility] [address] [address] Dec, [facility] [address] [address] 9312 Nov, [facility] [address] [address] Nov, IMMUNIZATIONS No Known Immunizations SOCIAL HISTORY Never Assessed REASON FOR VISIT HTN, and abnormal labs-Osmin ZURITA, PT has been having sharp chest pain when coughing or sneezing PLAN OF CARE VITAL SIGNS Height 70 in 2018-02-03 Weight 207.2 lbs 2018-02-03 Temperature 98.2 degrees Fahrenheit 2018-02-03 Heart Rate 78 bpm 2018-02-03 Respiratory Rate 18 2018-02-03 BMI 29.73 kg/m2 2018-02-03 Blood pressure systolic 124 mmHg 2018-02-03 Blood pressure diastolic 90 mmHg 2018-02-03 MEDICATIONS Medication Instructions Dosage Frequency Start Date End Date Duration Status Cetirizine HCl 10 mg Orally Once a day 1 tablet 24h Jan, Jul, 30 day(s) Active Hydrochlorothiazide 25 MG Orally Once a day 1 tablet in the morning 24h 30 Active Proventil HFA 108 (90 Base) MCG/ACT INHALE TWO PUFFS BY MOUTH FOUR TIMES DAILY NEEDED 25 Active Advair Diskus 250-50 MCG/DOSE INHALE ONE PUFF BY MOUTH TWICE DAILY 30 Active Meloxicam 7.5 MG Orally 2 times a day 1 tablet 12h Jan, Mar, 30 day(s) Active Baclofen 10 mg Orally 2 times a day 1 tablet with food or milk 12h Jan, Mar, 30 day(s) Active RESULTS No Results PROCEDURES Procedure Date Ordered Result Body Site LIPID PANEL February 03, 2018 C-REACTIVE PROTEIN, HS February 03, 2018 COMPLETE CBC W/AUTO DIFF WBC February 03, 2018 VENIPUNCT, ROUTINE* February 03, 2018 ASSAY THYROID STIM HORMONE February 03, 2018 INSTRUCTIONS MEDICATIONS ADMINISTERED No Known Medications MEDICAL (GENERAL) HISTORY Type Description Date Medical History alcohol abuse Medical History depression Medical History COPD Surgical History Spinal Tap at 02/2014 Hospitalization History pt was sent to [facility] for multiple seizures (alcohol related) February 2014 Hospitalization History pt overdosed on Ativan was at [facility] April 14, 2015
--- OUTSIDE RECORDS SUMMARY | 2019-01-26 10:53 | XMS REPORT ---
Author Author NAVYA DIANA Organization [facility] Address [address] [place] [address] Care Team Providers Care Reference Test Clerk Name Role Phone NAVYA DIANA Unavailable PROBLEMS Type Condition ICD9-CM Code ABY07-JJ Code Onset Dates Condition Status SNOMED Code Problem Neck pain M54.2 Active 84417318 Problem Hypertension, benign I10 Active 22078399 Problem COPD exacerbation J44.1 Active 785668862 Problem Alcoholism /alcohol abuse F10.20 Active 3320733 Problem Essential hypertension I10 Active 23232260 Problem Chronic obstructive pulmonary disease, unspecified COPD type J44.9 Active 84205512 Problem Cigarette nicotine dependence without complication F17.210 Active 14279706 ALLERGIES No Information ENCOUNTERS Encounter Location Date Diagnosis [facility] [id number] [place] [address]- 8020 Jan, [place] [address] [address]- [address] Dec, [place] [id number] [place] [address] 45030- 6178 Dec, Viral upper respiratory tract infection J06.9 [facility] [id number] [place] [address] 21123- 7001 Nov, Hypertension, benign I10 and Weight gain R63.5 [facility] [id number] [place] [address] 36316- 7623 Oct, [facility] [address] [address] Aug, Fatigue, unspecified type R53.83 and Family history of coronary artery disease Z82.49 [facility] [address] [address]- 5[address] Jul, COPD exacerbation J44.1 and Neck pain M54.2 [facility] [address], [place] [address] Jun, [facility] [id number] [place] [address] 52632- 5589 Mar, [facility] [id number] [place] [address] 27780- 9927 Mar, [facility] [id number] [place] [address] 50426- 0769 February, Chronic obstructive pulmonary disease, unspecified COPD type J44.9 [place] [id number] [place] [address] 25928- 1732 February, Neck pain M54.2 and Chronic obstructive pulmonary disease, unspecified COPD type J44.9 [place] [id number] [place] [address] 70796- 0854 February, Dyspnea on exertion R06.09 [place] [id number] [place] [address] 68487- 4584 February, Hemoptysis R04.2 ; Dyspnea on exertion R06.09 ; Essential hypertension I10 ; Cigarette nicotine dependence without complication F17.210 ; Alcoholism /alcohol abuse F10.20 and Neck pain M54.2 [place] [address], [place] [address]- [address] Nov, [place] [id number] [place] [address] 80240- 6533 Dec, [place] [id number] [place] [address] 07439- 9633 Jul, Genital warts A63.0 [place] [address] [place] [address] 13948- 5795 Jan, [place] [address] [place] [address] 25744- 7183 Jan, [facility] [id number] [address]- 5[address] Mar, [facility] [id number], [place] [address]- 9686 Mar, [facility] [address], [place] [address]- 3880 February, [facility] [address], [place] [address]- 4108 February, [facility] [address], [place] [address]- 6201 February, [facility] [address], [place] [address]- 4511 February, [facility] [address], [place] [address]- 9870 Dec, [facility] [address], [place] [address]- 0920 Nov, [facility] [id number], [place] [address]- 4922 Nov, IMMUNIZATIONS No Known Immunizations SOCIAL HISTORY Never Assessed REASON FOR VISIT Vomiting blood PLAN OF CARE VITAL SIGNS MEDICATIONS Unknown Medications RESULTS No Results PROCEDURES No Known procedures INSTRUCTIONS MEDICATIONS ADMINISTERED No Known Medications MEDICAL (GENERAL) HISTORY Type Description Date Medical History alcohol abuse Medical History depression Medical History COPD Surgical History Spinal Tap at 02/2014 Hospitalization History pt was sent to [facility] for multiple seizures (alcohol related) February 2014 Hospitalization History pt overdosed on Ativan was at [facility] April 14, 2015
--- OUTSIDE RECORDS SUMMARY | 2019-01-26 10:53 | XMS REPORT ---
Author Author YFN LU Organization [facility] Address [address] [place] [address] Care Team Providers Care Floor Installation Mechanic Name Role Phone YFN LU Unavailable PROBLEMS Type Condition ICD9-CM Code SSU41-ZZ Code Onset Dates Condition Status SNOMED Code Problem Neck pain M54.2 Active 05270559 Problem Alcoholism /alcohol abuse F10.20 Active 4914687 Problem Essential hypertension I10 Active 90653294 Problem Chronic fatigue R53.82 Active 03525225 Problem Seasonal allergic rhinitis due to other allergic trigger J30.89 Active 404737022 Problem Chronic obstructive pulmonary disease, unspecified COPD type J44.9 Active 62591632 Problem Cigarette nicotine dependence without complication F17.210 Active 12005050 Problem Hypertension, benign I10 Active 57963826 Problem COPD exacerbation J44.1 Active 713500785 ALLERGIES No Information ENCOUNTERS Encounter Location Date Diagnosis [place] [id number] [place] [address] 89771- 4623 Jun, Dizziness R42 [place] [id number] [place] [address] 06997- 6558 May, Dizziness R42 ; Chronic fatigue R53.82 and Essential hypertension I10 [place] [id number] [place] [address] 54298- 5946 May, [place] [id number] [place] [address] 20187- 6007 Apr, Family history of early CAD Z82.49 [place] [address] [address]- 5222 Jan, Family history of early CAD Z82.49 ; Chest pain on breathing R07.1 and Seasonal allergic rhinitis due to other allergic trigger J30.89 [place] [id number] [place] [address] 85922- 8737 Dec, [facility] [address], [place] [address]- 7255 Dec, Viral upper respiratory tract infection J06.9 [facility] [id number] [place] [address] 85015- 1949 Nov, Hypertension, benign I10 and Weight gain R63.5 [place] [id number] [place] [address] 38098- 4903 Oct, [facility] [address] [place] [address] 91668 -0474 Aug, Fatigue, unspecified type R53.83 and Family history of coronary artery disease Z82.49 [place] [id number] [place] [address] 28556- 6190 Jul, COPD exacerbation J44.1 and Neck pain M54.2 [place] [id number] [place] [address] 04209- 2471 Jun, [place] [id number] [place] [address] 71427- 4963 Mar, [place] [id number] [place] [address] 88463- 2004 Mar, [place] [address], [place] [address]- 6[address] February, Chronic obstructive pulmonary disease, unspecified COPD type J44.9 [place] [address] [place] [address] 18918- 8739 February, Neck pain M54.2 and Chronic obstructive pulmonary disease, unspecified COPD type J44.9 [place] [id number] [place] [address] 61648- 6952 February, Dyspnea on exertion R06.09 [place] [address], [place] [address]- 88[address] 02 Feb, 2017 Hemoptysis R04.2 ; Dyspnea on exertion R06.09 ; Essential hypertension I10 ; Cigarette nicotine dependence without complication F17.210 ; Alcoholism /alcohol abuse F10.20 and Neck pain M54.2 [facility] [id number] [place] [address] 42594- 4201 Nov, [facility] [id number] [place] [address] 34964- 2350 Dec, [facility] [id number] [place] [address] 03322- 8639 Jul, Genital warts A63.0 [facility] [id number] [place] [address] 11618- 0269 Jan, [facility] [id number] [place] [address] 53454- 0640 Jan, [facility] [id number] [place] [address] 32615- 5933 Mar, [facility] [id number] [place] [address] 53461- 4944 Mar, [facility] [id number] [place] [address] 58700- 3605 February, [facility] [id number] [place] [address] 98340- 6516 February, [facility] [id number] [place] [address] 79483- 0894 February, [facility] [id number] [place] [address] 01773- 7111 February, [facility] [id number] [place] [address] 99267- 2631 Dec, [facility] [id number] [place] [address] 22030- 9478 Nov, [facility] [id number] [place] [address] 21019- 2242 Nov, IMMUNIZATIONS No Known Immunizations SOCIAL HISTORY Never Assessed REASON FOR VISIT Medication question PLAN OF CARE VITAL SIGNS MEDICATIONS Unknown Medications RESULTS No Results PROCEDURES No Known procedures INSTRUCTIONS MEDICATIONS ADMINISTERED No Known Medications MEDICAL (GENERAL) HISTORY Type Description Date Medical History alcohol abuse Medical History depression Medical History COPD Surgical History Spinal Tap at 02/2014 Hospitalization History pt was sent to [facility] for multiple seizures (alcohol related) February 2014 Hospitalization History pt overdosed on Ativan was at [facility] April 14, 2015
--- OUTSIDE RECORDS SUMMARY | 2019-01-26 10:53 | XMS REPORT ---
Author Author SANIA URBANO Organization [facility] Address [address] [place] [address] Care Team Providers Care Ethanol Maintenance Mechanic Name Role Phone SANIA URBANO Unavailable PROBLEMS Type Condition ICD9-CM Code UXD96-KW Code Onset Dates Condition Status SNOMED Code Problem Essential hypertension I10 Active 11967598 Problem Neck pain M54.2 Active 08574789 Problem Seasonal allergic rhinitis due to other allergic trigger J30.89 Active 070404425 Problem Hypertension, benign I10 Active 74133890 Problem Cigarette nicotine dependence without complication F17.210 Active 36379055 Problem Alcoholism /alcohol abuse F10.20 Active 8083681 Problem COPD exacerbation J44.1 Active 440604964 Problem Chronic obstructive pulmonary disease, unspecified COPD type J44.9 Active 70595389 ALLERGIES No Known Allergies ENCOUNTERS Encounter Location Date Diagnosis [place] [id number] [place] [address] 48914- 6402 Apr, [place] [id number] [place] [address] 99186- 4092 Apr, Family history of early CAD Z82.49 [place] [id number] [place] [address] 16810- 3769 Jan, Family history of early CAD Z82.49 ; Chest pain on breathing R07.1 and Seasonal allergic rhinitis due to other allergic trigger J30.89 [place] [id number] [place] [address] 98778- 0196 Dec, [address] 397[address]- 6151 Dec, Viral upper respiratory tract infection J06.9 [place] [id number] [place] [address] 46346- 3911 Nov, Hypertension, benign I10 and Weight gain R63.5 [facility] [address], [place] [address]- 1477 Oct, [facility] [address] [place] [address] 07508 -3996 Aug, Fatigue, unspecified type R53.83 and Family history of coronary artery disease Z82.49 [facility] [id number] [place] [address] 43052- 8310 Jul, COPD exacerbation J44.1 and Neck pain M54.2 [place] [id number] [place] [address] 03291- 9053 Jun, [place] [id number] [place] [address] 34251- 2149 Mar, [place] [id number] [place] [address] 49420- 8728 Mar, [facility] [id number] [place] [address] 81489- 9540 February, Chronic obstructive pulmonary disease, unspecified COPD type J44.9 [place] [id number] [place] [address] 16395- 7955 February, Neck pain M54.2 and Chronic obstructive pulmonary disease, unspecified COPD type J44.9 [facility] [address] [place] [address] 53387- 4809 15 Feb, 2017 Dyspnea on exertion R06.09 [facility] [id number] [place] [address] 78888- 6397 02 Feb, 2017 Hemoptysis R04.2 ; Dyspnea on exertion R06.09 ; Essential hypertension I10 ; Cigarette nicotine dependence without complication F17.210 ; Alcoholism /alcohol abuse F10.20 and Neck pain M54.2 [place] [address] [place] [address] 09382- 4617 Nov, [place] [id number] [address]- 2631 Dec, [facility] [address], [place] [address]- 1289 Jul, Genital warts A63.0 [facility] [address], [place] [address]- 6950 14 Jan, 2015 [facility] [address], [place] [address]- 1888 Jan, [facility] [address], [place] [address]- 7605 Mar, [facility] [address], [place] [address]- 0426 Mar, [facility] [address], [place] [address]- 7014 February, [facility] [address], [place] [address]- 3055 February, [facility] [address], [place] [address]- 2359 February, [facility] [address], [place] [address]- 6373 February, [facility] [id number], [place] [address]- 0012 Dec, [facility] [address], [place] [address]- 0062 Nov, [facility] [id number], [place] [address]- 6720 Nov, IMMUNIZATIONS No Known Immunizations SOCIAL HISTORY Never Assessed REASON FOR VISIT Sore throat with chills, nasal drainage all symptoms started saturday-Osmin ZURITA PLAN OF CARE Activity Details Follow Up prn Reason: VITAL SIGNS Height 70 in 2017-12-23 Weight 206.4 lbs 2017-12-23 Temperature 98.4 degrees Fahrenheit 2017-12-23 Heart Rate 76 bpm 2017-12-23 Respiratory Rate 20 2017-12-23 BMI 29.61 kg/m2 2017-12-23 Blood pressure systolic 120 mmHg 2017-12-23 Blood pressure diastolic 82 mmHg 2017-12-23 MEDICATIONS Medication Instructions Dosage Frequency Start Date End Date Duration Status Diclofenac Sodium 75 MG TAKE ONE TABLET BY MOUTH TWICE DAILY WITH FOOD OR MILK 30 Active Hydrochlorothiazide 25 MG Orally Once a day 1 tablet in the morning 24h Nov, 30 day(s) Active Advair Diskus 250-50 MCG/DOSE INHALE ONE PUFF BY MOUTH TWICE DAILY 30 Active Proventil HFA 108 (90 Base) MCG/ACT INHALE TWO PUFFS BY MOUTH FOUR TIMES DAILY NEEDED 25 Active Cyclobenzaprine HCl 10 MG TAKE ONE TABLET BY MOUTH AT BEDTIME 30 Active RESULTS No Results PROCEDURES No Known procedures INSTRUCTIONS MEDICATIONS ADMINISTERED No Known Medications MEDICAL (GENERAL) HISTORY Type Description Date Medical History alcohol abuse Medical History depression Medical History COPD Surgical History Spinal Tap at 02/2014 Hospitalization History pt was sent to [facility] for multiple seizures (alcohol related) February 2014 Hospitalization History pt overdosed on Ativan was at [facility] April 14, 2015
--- OUTSIDE RECORDS SUMMARY | 2019-01-26 10:53 | XMS REPORT ---
Author Author YFN LU Organization [facility] Address [address] [place] [address] Care Team Providers Care Transportation Agent Name Role Phone YFN LU Unavailable PROBLEMS Type Condition ICD9-CM Code LIQ13-MC Code Onset Dates Condition Status SNOMED Code Problem Neck pain M54.2 Active 42569247 Problem Alcoholism /alcohol abuse F10.20 Active 7506139 Problem Essential hypertension I10 Active 03977621 Problem Chronic fatigue R53.82 Active 30768247 Problem Seasonal allergic rhinitis due to other allergic trigger J30.89 Active 787413803 Problem Chronic obstructive pulmonary disease, unspecified COPD type J44.9 Active 21410414 Problem Cigarette nicotine dependence without complication F17.210 Active 02617028 Problem Hypertension, benign I10 Active 87228571 Problem COPD exacerbation J44.1 Active 502124998 ALLERGIES No Information ENCOUNTERS Encounter Location Date Diagnosis [place] [address] [address] Jun, [place] [address] [address] May, Dizziness R42 ; Chronic fatigue R53.82 and Essential hypertension I10 [place] [address] [address] May, [place] [address] [place] [id number] [place] [address] 32170- 7851 Apr, Family history of early CAD Z82.49 [place] [address] [address] Jan, Family history of early CAD Z82.49 ; Chest pain on breathing R07.1 and Seasonal allergic rhinitis due to other allergic trigger J30.89 [place] [address] [address] Dec, [facility] [address] [address] Dec, Viral upper respiratory tract infection J06.9 [facility] [address] [address] Nov, Hypertension, benign I10 and Weight gain R63.5 [facility] [address] [place] [id number] [place] [address] 40596- 4721 Oct, [facility] [address] [address] Aug, Fatigue, unspecified type R53.83 and Family history of coronary artery disease Z82.49 [place] [address] [place] [id number] [address] Jul, COPD exacerbation J44.1 and Neck pain M54.2 [place] [address] [place] [id number] [place] [address] 94581- 6846 Jun, [place] [address] [place] [id number] [place] [address] 13573- 4584 Mar, [place] [address] [place] [id number] [place] [address] 69654- 5214 Mar, [place] [address], [place] [address] February, Chronic obstructive pulmonary disease, unspecified COPD type J44.9 [facility] [address] [address] February, Neck pain M54.2 and Chronic obstructive pulmonary disease, unspecified COPD type J44.9 [place] [address] [place] [id number] [place] [address] 04373- 7930 15 Feb, 2017 Dyspnea on exertion R06.09 [place] [address] [address] 02 Feb, 2017 Hemoptysis R04.2 ; Dyspnea on exertion R06.09 ; Essential hypertension I10 ; Cigarette nicotine dependence without complication F17.210 ; Alcoholism /alcohol abuse F10.20 and Neck pain M54.2 [facility] [address] [place] [id number] [place] [address] 44497- 9388 Nov, [facility] [address] [place] [id number] [place] [address] 19615- 0711 Dec, [facility] [address] [place] [id number] [place] [address] 27530- 7942 Jul, Genital warts A63.0 [facility] [address] [place] [id number] [place] [address] 15963- 5507 Jan, [facility] [address] [place] [id number] [place] [address] 58458- 3814 Jan, [facility] [address] [place] [id number] [place] [address] 52216- 2960 Mar, [facility] [address] [place] [id number] [place] [address] 96583- 1903 Mar, [facility] [address] [place] [id number] [place] [address] 51654- 1089 February, [facility] [address] [place] [id number] [place] [address] 85543- 3718 February, [facility] [address] [place] [address] 30675- 9182 February, [facility] [address] [place] [id number] [place] [address] 42830- 8371 February, [facility] [address] [place] [address] 02221- 3925 Dec, [facility] [address] [place] [id number] [place] [address] 82367- 8766 Nov, [facility] [address], [place] [address] Nov, IMMUNIZATIONS No Known Immunizations SOCIAL HISTORY Never Assessed REASON FOR VISIT Refill request PLAN OF CARE VITAL SIGNS MEDICATIONS Medication Instructions Dosage Frequency Start Date End Date Duration Status Hydrochlorothiazide 25 MG Orally Once a day 1 tablet in the morning 24h 30 Active Baclofen 10 mg Orally 2 times a day 1 tablet with food or milk 12h 23 Jan, 2018 30 day(s) Active RESULTS No Results PROCEDURES No Known procedures INSTRUCTIONS MEDICATIONS ADMINISTERED No Known Medications MEDICAL (GENERAL) HISTORY Type Description Date Medical History alcohol abuse Medical History depression Medical History COPD Surgical History Spinal Tap at 02/2014 Hospitalization History pt was sent to [facility] for multiple seizures (alcohol related) February 2014 Hospitalization History pt overdosed on Ativan was at [facility] April 14, 2015
--- OUTSIDE RECORDS SUMMARY | 2019-01-26 10:53 | XMS REPORT ---
Author Author YFN LU Organization [facility] Address [address] [place] [address] Care Team Providers Care Day Haul Youth Supervisor Name Role Phone YFN LU Unavailable PROBLEMS Type Condition ICD9-CM Code EYA31-PQ Code Onset Dates Condition Status SNOMED Code Problem Essential hypertension I10 Active 98566585 Problem Neck pain M54.2 Active 17879970 Problem Seasonal allergic rhinitis due to other allergic trigger J30.89 Active 427847339 Problem Hypertension, benign I10 Active 54910824 Problem Cigarette nicotine dependence without complication F17.210 Active 16989963 Problem Alcoholism /alcohol abuse F10.20 Active 7488377 Problem COPD exacerbation J44.1 Active 693192647 Problem Chronic obstructive pulmonary disease, unspecified COPD type J44.9 Active 56985768 ALLERGIES No Known Allergies ENCOUNTERS Encounter Location Date Diagnosis [place] [address] [place] [id number] [place] [address] Apr, [place] [id number] [place] [address]- 3360 Apr, Family history of early CAD Z82.49 [place] [id number] [place] [address] 39174- 7065 Jan, Family history of early CAD Z82.49 ; Chest pain on breathing R07.1 and Seasonal allergic rhinitis due to other allergic trigger J30.[address] [place] [address] 09988- 7968 Dec, [address] [address]- [address]77 Dec, Viral upper respiratory tract infection J06.[address] [place] [address] 21763- 8296 23 Feb, 2018 Hypertension, benign I10 and Weight gain R63.5 [facility] [address] [address] Oct, [facility] [address] [place] [id number] [place] [address] Aug, Fatigue, unspecified type R53.83 and Family history of coronary artery disease Z82.49 [place] [address] [place] [id number] [place] [address] 22490- 7331 Jul, COPD exacerbation J44.1 and Neck pain M54.2 [place] [address] [place] [id number] [place] [address] 63701- 9330 Jun, [place] [address] [place] [id number] [place] [address] 44247- 5079 Mar, [place] [address] [place] [id number] [place] [address] 14655- 6579 Mar, [facility] [address] [place] [id number] [place] [address] 85609- 8708 February, Chronic obstructive pulmonary disease, unspecified COPD type J44.9 [place] [address] [place] [id number] [place] [address] 14347- 1045 February, Neck pain M54.2 and Chronic obstructive pulmonary disease, unspecified COPD type J44.9 [place] [address] [place] [id number] [place] [address] 99127- 9015 15 Feb, 2017 Dyspnea on exertion R06.09 [place] [address] [place] [id number] [place] [address] 09800- 2381 02 Feb, 2017 Hemoptysis R04.2 ; Dyspnea on exertion R06.09 ; Essential hypertension I10 ; Cigarette nicotine dependence without complication F17.210 ; Alcoholism /alcohol abuse F10.20 and Neck pain M54.2 [place] [address] [place] [id number] [place] [address] 51986- 8541 Nov, [place] [address] [place] [id number] [place] [address] 75648- 3626 Dec, [facility] [address] [address]- [address] Jul, Genital warts A63.0 [facility] [address] [place] [id number] [address]- [address] 14 Jan, 2015 [facility] [address] [address]- [address] Jan, [facility] [address] [address]- 4661 Mar, [facility] [address] Mar, [facility] [address] [address]- 0868 February, [facility] [address] [address]- 7296 February, [facility] [address] [address]- 4694 February, [facility] [address] [address]- 4385 February, [facility] [address] [address]- 6868 Dec, [facility] [address] [address]- 0597 Nov, [facility] [address] [place] [id number] [address]- [address] Nov, IMMUNIZATIONS No Known Immunizations SOCIAL HISTORY Never Assessed REASON FOR VISIT Establish Care , Reports increase in BP since stopped smoking. CBRumbackRN PLAN OF CARE VITAL SIGNS Height 70 in 2017-12-06 Weight 197.5 lbs 2017-12-06 Temperature 98.2 degrees Fahrenheit 2017-12-06 Heart Rate 68 bpm 2017-12-06 Respiratory Rate 20 2017-12-06 Oximetry on room air:98 % 2017-12-06 BMI 28.34 kg/m2 2017-12-06 Blood pressure systolic 110 mmHg 2017-12-06 Blood pressure diastolic 80 mmHg 2017-12-06 MEDICATIONS Medication Instructions Dosage Frequency Start Date End Date Duration Status Diclofenac Sodium 75 MG TAKE ONE TABLET BY MOUTH TWICE DAILY WITH FOOD OR MILK 30 Active Flexeril 10 MG Orally Three times a day 1 tablet as needed 8h Not- Taking Cyclobenzaprine HCl 10 MG TAKE ONE TABLET BY MOUTH AT BEDTIME 30 Active Advair Diskus 250-50 MCG/DOSE INHALE ONE PUFF BY MOUTH TWICE DAILY 30 Active Hydrochlorothiazide 25 MG Orally Once a day 1 tablet in the morning 24h Nov, 30 day(s) Active Proventil HFA 108 (90 Base) MCG/ACT INHALE TWO PUFFS BY MOUTH FOUR TIMES DAILY NEEDED 25 Active RESULTS No Results PROCEDURES No Known procedures INSTRUCTIONS MEDICATIONS ADMINISTERED No Known Medications MEDICAL (GENERAL) HISTORY Type Description Date Medical History alcohol abuse Medical History depression Medical History COPD Surgical History Spinal Tap at 02/2014 Hospitalization History pt was sent to [facility] for multiple seizures (alcohol related) February 2014 Hospitalization History pt overdosed on Ativan was at [facility] April 14, 2015
--- OUTSIDE RECORDS SUMMARY | 2019-01-26 10:54 | XMS REPORT ---
Author Author STACY PEARCE Organization [facility] Address [address] [place] [address] Care Team Providers Care Outside Plant Engineer Name Role Phone RAMSES STACY Unavailable PROBLEMS Type Condition ICD9-CM Code GPD88-MF Code Onset Dates Condition Status SNOMED Code Problem Essential hypertension I10 Active 26846759 Problem Neck pain M54.2 Active 97325087 Problem Seasonal allergic rhinitis due to other allergic trigger J30.89 Active 154764091 Problem Hypertension, benign I10 Active 10941518 Problem Cigarette nicotine dependence without complication F17.210 Active 63007548 Problem Alcoholism /alcohol abuse F10.20 Active 9904027 Problem COPD exacerbation J44.1 Active 982034736 Problem Chronic obstructive pulmonary disease, unspecified COPD type J44.9 Active 24653684 ALLERGIES No Known Allergies ENCOUNTERS Encounter Location Date Diagnosis [facility] [address] [address] Jan, Family history of early CAD Z82.49 ; Chest pain on breathing R07.1 and Seasonal allergic rhinitis due to other allergic trigger J30.89 [facility] [address] [place] [id number] [place] [address] 99906- 1216 Dec, [facility] [address] [place] [id number] [place] [address] 66888- 0395 Dec, Viral upper respiratory tract infection J06.9 [facility] [address] [place] [id number] [place] [address] 42075- 2827 Nov, Hypertension, benign I10 and Weight gain R63.5 [facility] [address] [place] [id number] [place] [address] 27353- 6869 Oct, [facility] [address] [place] [id number] [place] [address] 62174 -5578 Aug, Fatigue, unspecified type R53.83 and Family history of coronary artery disease Z82.49 [facility] [address] [place] [id number] [place] [address] 44963- 5173 Jul, COPD exacerbation J44.1 and Neck pain M54.2 [facility] [address] [place] [address] [place] [address] 42538- 0346 Jun, [facility] [address] [place] [id number] [place] [address] 82885- 9660 Mar, [facility] [address] [place] [id number] [place] [address] 73456- 9204 Mar, [facility] [address] [place] [id number] [place] [address] 38393- 5803 February, Chronic obstructive pulmonary disease, unspecified COPD type J44.9 [facility] [address] [place] [id number] [place] [address] 56793- 6967 February, Neck pain M54.2 and Chronic obstructive pulmonary disease, unspecified COPD type J44.9 [facility] [address] [place] [address] [place] [address] 77362- 5850 February, Dyspnea on exertion R06.09 [facility] [address] [place] [id number] [place] [address] 16596- 9910 02 Feb, 2017 Hemoptysis R04.2 ; Dyspnea on exertion R06.09 ; Essential hypertension I10 ; Cigarette nicotine dependence without complication F17.210 ; Alcoholism /alcohol abuse F10.20 and Neck pain M54.2 [facility] [address] [place] [id number] [place] [address] 27285- 6660 Nov, [facility] [address] [place] [id number] [place] [address] 61077- 7901 Dec, [facility] [address] [place] [id number] [place] [address] 35654- 0942 Jul, Genital warts A63.0 [place] [address] [place] [address] [address]- [address] 14 Jan, 2015 [facility] [address] [place] [id number] [address]- 1455 Jan, [facility] [address], [place] [address]- 7702 Mar, [facility] [address], [place] [address]- 1162 Mar, [facility] [address], [place] [address]- 7560 February, [facility] [address] [place] [address] 60597- 9400 February, [facility] [address], [place] [address]- 5181 February, [facility] [address], [place] [address]- 9412 February, [facility] [address] [place] [id number] [address] Dec, [facility] [address] [address]- 3568 Nov, [facility] [address] [place] [id number] [address]- 7927 Nov, IMMUNIZATIONS No Known Immunizations SOCIAL HISTORY Never Assessed REASON FOR VISIT left lower quadrant pain...pain comes and goes...worse when hes stressed. last BM was this am...reports they are green colored for the past week. isidro, denies any urinary symptoms. PLAN OF CARE Activity Details Follow Up prn Reason: VITAL SIGNS Height 70 in 2017-09-12 Weight 191.0 lbs 2017-09-12 Temperature 98.3 degrees Fahrenheit 2017-09-12 Heart Rate 82 bpm 2017-09-12 Respiratory Rate 20 2017-09-12 BMI 27.40 kg/m2 2017-09-12 Blood pressure systolic 118 mmHg 2017-09-12 Blood pressure diastolic 76 mmHg 2017-09-12 MEDICATIONS Medication Instructions Dosage Frequency Start Date End Date Duration Status Advair Diskus 250-50 MCG/DOSE Inhalation Twice a day 1 puff 12h 18 Feb, 2017 30 days Active Cyclobenzaprine HCl 10 mg Orally at bedtime 1 30 Active Diclofenac Sodium 75 MG Orally Twice a day 1 tablet with food or milk 12h 30 Not-Taking Flexeril 10 MG Orally Three times a day 1 tablet as needed 8h Not- Taking ProAir HFA 108 (90 Base) mcg/act Inhalation 4 times a day 2 puffs as needed 6h February, 30 days Active RESULTS No Results PROCEDURES No Known procedures INSTRUCTIONS MEDICATIONS ADMINISTERED No Known Medications MEDICAL (GENERAL) HISTORY Type Description Date Medical History alcohol abuse Medical History depression Medical History COPD Surgical History Spinal Tap at 02/2014 Hospitalization History pt was sent to [facility] for multiple seizures (alcohol related) February 2014 Hospitalization History pt overdosed on Ativan was at [facility] April 14, 2015
--- OUTSIDE RECORDS SUMMARY | 2019-01-26 10:54 | XMS REPORT ---
Author Author NAVYA DIANA Organization [facility] Address [address] [place] [address] Care Team Providers Care Wrapper Layer Name Role Phone NAVYA DIANA Unavailable PROBLEMS Type Condition ICD9-CM Code FTF73-PD Code Onset Dates Condition Status SNOMED Code Problem Anxiety state, unspecified 300.00 Active 136208295 Problem COPD exacerbation J44.1 Active 767897469 Problem Chronic obstructive pulmonary disease, unspecified COPD type J44.9 Active 20203190 Problem Essential hypertension I10 Active 17090871 Problem Neck pain M54.2 Active 58606428 Problem Cigarette nicotine dependence without complication F17.210 Active 12905546 Problem Alcoholism /alcohol abuse F10.20 Active 2927385 ALLERGIES No Information SOCIAL HISTORY Never Assessed PLAN OF CARE Activity Details Follow Up prn Reason: Future/Pending Procedure PULMONARY FUNCTION TEST (IN-HOUSE) VITAL SIGNS MEDICATIONS No Known Medications RESULTS No Results PROCEDURES Procedure Date Ordered Result Body Site RESPIRATORY FLOW VOLUME LOOP February 25, 2017 SPRIOMETRY CHALLENGE February 25, 2017 SPIROMETRY February 25, 2017 NEB/MDI DEMO February 25, 2017 IMMUNIZATIONS No Known Immunizations MEDICAL (GENERAL) HISTORY Type Description Date Medical History alcohol abuse Medical History depression Surgical History Spinal Tap at 02/2014 Hospitalization History pt was sent to [facility] for multiple seizures (alcohol related) February 2014 Hospitalization History pt overdosed on Ativan was at [facility] April 14, 2015
--- OUTSIDE RECORDS SUMMARY | 2019-01-26 10:54 | XMS REPORT ---
Author Author NAVYA DIANA Organization [facility] Address [address] [place] [address] Care Team Providers Care Shipyard Supervisor Name Role Phone NAVYA DIANA Unavailable PROBLEMS Type Condition ICD9-CM Code SUH24-LJ Code Onset Dates Condition Status SNOMED Code Problem Essential hypertension I10 Active 76363652 Problem Neck pain M54.2 Active 95603435 Problem Seasonal allergic rhinitis due to other allergic trigger J30.89 Active 812900531 Problem Hypertension, benign I10 Active 51149179 Problem Cigarette nicotine dependence without complication F17.210 Active 43563232 Problem Alcoholism /alcohol abuse F10.20 Active 1758249 Problem COPD exacerbation J44.1 Active 465303696 Problem Chronic obstructive pulmonary disease, unspecified COPD type J44.9 Active 26751612 ALLERGIES No Information ENCOUNTERS Encounter Location Date Diagnosis [facility] [id number] [place] [address] Jan, Family history of early CAD Z82.49 ; Chest pain on breathing R07.1 and Seasonal allergic rhinitis due to other allergic trigger J30.89 [facility] [id number] [place] [address] 95208- 7621 Dec, [facility] [id number] [place] [address] 32325- 3009 Dec, Viral upper respiratory tract infection J06.9 [facility] [id number] [place] [address] 36261- 8[address] Nov, Hypertension, benign I10 and Weight gain R63.5 [facility] [id number] [place] [address] 96372- 0197 Oct, [facility] [id number] [place] [address] Aug, Fatigue, unspecified type R53.83 and Family history of coronary artery disease Z82.49 [facility] [id number] [place] [address]80- 6264 Jul, COPD exacerbation J44.1 and Neck pain M54.2 [facility] [id number] [place] [address] 82820- 9676 Jun, [facility] [address] [address] Mar, [facility] [id number] [place] [address] 17378- 8607 Mar, [place] [address] [address] February, Chronic obstructive pulmonary disease, unspecified COPD type J44.9 [facility] [address] [address]- [address] February, Neck pain M54.2 and Chronic obstructive pulmonary disease, unspecified COPD type J44.9 [facility] [id number] [place] [address] 19471- 4067 February, Dyspnea on exertion R06.09 [facility] [id number] [place] [address] 33800- 8[address] February, Hemoptysis R04.2 ; Dyspnea on exertion R06.09 ; Essential hypertension I10 ; Cigarette nicotine dependence without complication F17.210 ; Alcoholism /alcohol abuse F10.20 and Neck pain M54.2 [facility] [id number] [place] [address] 84815- 5291 Nov, [facility] [address] [address]- [address] Dec, [facility] [id number] [place] [address] 29803- 5529 Jul, Genital warts A63.0 [facility] [id number] [place] [address] 27699- 3017 14 Jan, 2015 [facility] [id number] [address] Jan, [facility] [address] [address] Mar, [facility] [address] [address] Mar, [facility] [id number] [address] February, [facility] [id number] [address] February, [facility] [address] [address] February, [facility] [address] [address] February, [facility] [address] [address] Dec, [facility] [id number] [address] Nov, [facility] [id number] [address] Nov, IMMUNIZATIONS No Known Immunizations SOCIAL HISTORY Never Assessed REASON FOR VISIT Refill request PLAN OF CARE VITAL SIGNS MEDICATIONS No Known Medications RESULTS No Results PROCEDURES No Known procedures INSTRUCTIONS MEDICATIONS ADMINISTERED No Known Medications MEDICAL (GENERAL) HISTORY Type Description Date Medical History alcohol abuse Medical History depression Medical History COPD Surgical History Spinal Tap at 02/2014 Hospitalization History pt was sent to [facility] for multiple seizures (alcohol related) February 2014 Hospitalization History pt overdosed on Ativan was at [facility] April 14, 2015
--- OUTSIDE RECORDS SUMMARY | 2019-01-26 10:54 | XMS REPORT | Continuity of Care Document ---
Author Organization Unknown Address Unknown Allergies Active Description Code Type Severity Reaction Onset Reported/Identified Relationship to Patient Clinical Status Yes NKANo Known Allergies NKA Miscellaneous Allergy Unknown N/A 01/30/2006 Yes buspirone [id number] Drug Allergy Mild N/A 10/16/2014 Medications There is no data. 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 01/27/2014 MIRIAM FERGUSON MD Ot 291.81 ALCOHOL WITHDRAWAL 01/27/2014 MIRIAM FERGUSON MD Ot 300.00 ANXIETY STATE NOS 01/27/2014 MIRIAM FERGUSON MD Ot 303.90 ALCOH DEP NEC/NOS-UNSPEC 01/27/2014 MIRIMA FERGUSON MD Ot 305.1 TOBACCO USE DISORDER 01/27/2014 MIRIAM FERGUSON MD Ot 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 01/27/2014 MIRIAM FERGUSON MD Ot 786.50 CHEST PAIN NOS 01/27/2014 MIRIAM FERGUSON MD Ot 787.01 NAUSEA WITH VOMITING 01/27/2014 MIRIAM FERGUSON MD Ot V15.81 HX OF PAST NONCOMPLIANCE 03/02/2014 BRISSA PHD, MELODY Chester 300.00 AN ANXIETY UNSPEC 06/29/2014 CHUCK BROOKS MD Ot 300.00 ANXIETY STATE NOS 06/29/2014 CHUCK BROOKS MD Ot 300.01 PANIC DISORDER WITHOUT AGORAPHOBIA 06/29/2014 CHUCK BROOKS MD Ot 345.90 EPILEPSY UNSPEC W/O MENTION INTRACTABLE 06/29/2014 CHUCK BROOKS MD Ot V58.69 OTH MED,LT,CURRENT USE 07/12/2014 MIRIAM FERGUSON MD Ot 291.81 ALCOHOL WITHDRAWAL 07/12/2014 MIRIAM FERGUSON MD Ot 780.39 OTHER CONVULSIONS 07/12/2014 MIRIAM FERGUSON MD Ot 291.81 ALCOHOL WITHDRAWAL 07/12/2014 MIRIAM FERGUSON MD Ot 780.39 OTHER CONVULSIONS 07/16/2014 MIRIAM FERGUSON MD Ot 296.80 BIPOLAR DISORDER, UNSPECIFIED 07/16/2014 MIRIAM FERGUSON MD Ot 303.00 AC ALCOHOL INTOX-UNSPEC 07/16/2014 MIRIAM FERGUSON MD Ot 305.1 TOBACCO USE DISORDER 07/16/2014 MIRIAM FERGUSON MD Ot 780.39 OTHER CONVULSIONS 07/16/2014 MIRIAM FERGUSON MD Ot V15.81 HX OF PAST NONCOMPLIANCE 10/16/2014 MIRIAM FERGUSON MD Ot 303.00 AC ALCOHOL INTOX-UNSPEC 10/16/2014 MIRIAM FERGUSON MD Ot 305.1 TOBACCO USE DISORDER 10/18/2014 Ot 305.1 10/18/2014 Ot 780.79 10/18/2014 Ot 785.0 10/18/2014 Ot 786.05 10/18/2014 Ot 783.0 10/18/2014 Ot 783.21 10/18/2014 Ot 786.30 10/18/2014 Ot 807.02 10/18/2014 Ot E000.8 10/18/2014 Ot E928.9 10/18/2014 Ot 780.39 10/18/2014 Ot V18.0 10/23/2018 YFN LU Ot R11.14 BILIOUS VOMITING 01/26/2019 YFN LU Ot R11.14 BILIOUS VOMITING Procedures Code Description Performed By Performed On DAPHNEY DAHLJAMES 11/25/2012 96574 PSYCH DIAGNOSTIC EVALUATION 03/03/2014 94.62 ALCOHOL DETOXIFICATION 07/15/2014 Results There is no data. Encounters ACCT No. Visit Date/Time Discharge Status Pt. Type Provider Facility Loc./Unit Complaint [id number] 01/26/2019 10:20:00 ACT Outpatient YFN UL APRN [facility] [id number] 03/02/2014 09:40:00 03/02/2014 23:59:59 CLS Outpatient BRISSA SANCHEZ, MELODY Chester [id number] 12/29/2012 14:54:00 12/29/2012 23:59:59 CLS Outpatient [id number] 11/25/2012 09:50:00 11/25/2012 23:59:59 CLS Outpatient [id number] 10/20/2018 08:43:00 10/20/2018 23:59:59 CLS Outpatient YFN LU [facility] CARD BILIOUS VOMITING [id number] 10/15/2014 20:40:00 10/16/2014 08:00:00 DIS Inpatient MIRIAM FERGUSON MD [facility] ICU ACUTE ALCOHOL POISIONING [id number] 07/15/2014 13:20:00 07/16/2014 17:20:00 DIS Inpatient MIRIAM FERGUSON MD [facility] ICU ETOH ABUSE,BIPOLAR DZ, PSEUDOSEIZURES [id number] 07/12/2014 18:33:00 07/12/2014 22:55:00 DIS Inpatient MIRIAM FERGUSON MD [facility] 4TH ETOH WITHDRAWAL [id number] 07/12/2014 10:39:00 07/12/2014 16:10:00 DIS Inpatient MIRIAM FERGUSON MD [facility] SURGICAL ALCOHOL WITHDRAWAL SEIZURES [id number] 06/29/2014 07:38:00 06/29/2014 23:59:59 CLS Emergency CHUCK BROOKS MD [facility] ER SEIZURES [id number] 01/24/2014 17:10:00 01/27/2014 18:23:00 DIS Inpatient MIRIAM FERGUSON MD [facility] ICU SEIZURE [id number] 01/24/2014 00:24:00 01/24/2014 02:14:00 DIS Emergency LAZARA SHIN MD [facility] ER SEIZURE [id number] 01/26/2019 10:48:00 ACT Emergency CHUCK BROOKS MD [facility] ER HIGH BP;CHEST PAIN [id number] 08/29/2012 10:00:00 Document Registration [id number] 03/13/2012 07:35:00 Document Registration [id number] 09/25/2010 10:06:00 Document Registration [id number] 07/24/2010 10:30:00 Document Registration
--- OUTSIDE RECORDS SUMMARY | 2019-01-26 10:54 | XMS REPORT ---
Author Author ASHLYN AGUILAR [facility] Address [address] [place] [address] Care Team Providers Care Wood Cutter Name Role Phone ASHLYN AGUILAR Unavailable PROBLEMS Type Condition ICD9-CM Code XAM52-AO Code Onset Dates Condition Status SNOMED Code Problem Chronic obstructive pulmonary disease, unspecified COPD type J44.9 Active 74646298 Problem Cigarette nicotine dependence without complication F17.210 Active 98848750 Problem Neck pain M54.2 Active 07510841 Problem Anxiety state, unspecified 300.00 Active 163791325 Problem Alcoholism /alcohol abuse F10.20 Active 6216383 Problem Essential hypertension I10 Active 20791255 ALLERGIES Unknown Allergies SOCIAL HISTORY No smoking Hx information available PLAN OF CARE VITAL SIGNS MEDICATIONS Unknown Medications RESULTS No Results PROCEDURES No Known procedures IMMUNIZATIONS No Known Immunizations
--- OUTSIDE RECORDS SUMMARY | 2019-01-26 10:54 | XMS REPORT ---
Author Author NAVYA DIANA Organization [facility] Address [address] [place] [address] Care Team Providers Care Dough Braker Name Role Phone NAVYA DIANA Unavailable PROBLEMS Type Condition ICD9-CM Code PQM00-OL Code Onset Dates Condition Status SNOMED Code Problem Essential hypertension I10 Active 25619292 Problem Neck pain M54.2 Active 38818411 Problem Seasonal allergic rhinitis due to other allergic trigger J30.89 Active 782076697 Problem Hypertension, benign I10 Active 04141072 Problem Cigarette nicotine dependence without complication F17.210 Active 58481288 Problem Alcoholism /alcohol abuse F10.20 Active 7875763 Problem COPD exacerbation J44.1 Active 377021711 Problem Chronic obstructive pulmonary disease, unspecified COPD type J44.9 Active 39759886 ALLERGIES No Known Allergies ENCOUNTERS Encounter Location Date Diagnosis [facility] [address] [address] Jan, Family history of early CAD Z82.49 ; Chest pain on breathing R07.1 and Seasonal allergic rhinitis due to other allergic trigger J30.89 [facility] [id number] [place] [address]10- [address]34 Dec, [facility] [address] [address]- [address] Dec, Viral upper respiratory tract infection J06.9 [facility] [id number] [place] [address] 93509- 9243 Nov, Hypertension, benign I10 and Weight gain R63.5 [facility] [id number] [place] [address] 26263- 1326 Oct, [facility] [id number] [place] [address]3441 -[address] Aug, Fatigue, unspecified type R53.83 and Family history of coronary artery disease Z82.49 [facility] [address] [address]- [address] Jul, COPD exacerbation J44.1 and Neck pain M54.2 [facility] [id number] [place] [address] 82100- 2654 Jun, [facility] [address] [address]- [address] Mar, [facility] [address] [address]- [address] Mar, [facility] [address] [address]- [address] February, Chronic obstructive pulmonary disease, unspecified COPD type J44.9 [place] [address] [address]- [address] February, Neck pain M54.2 and Chronic obstructive pulmonary disease, unspecified COPD type J44.9 [facility] [id number] [place] [address] 60421- 9541 February, Dyspnea on exertion R06.09 [place] [id number] [place] [address] 84817- 9053 02 Feb, 2017 Hemoptysis R04.2 ; Dyspnea on exertion R06.09 ; Essential hypertension I10 ; Cigarette nicotine dependence without complication F17.210 ; Alcoholism /alcohol abuse F10.20 and Neck pain M54.2 [facility] [id number] [place] [address] 71666- 2258 Nov, [facility] [address] [address]- [address]691 Dec, [facility] [id number] [place] [address] 26288- 7118 Jul, Genital warts A63.0 [place] [address] [place] [address]- [address] 14 Jan, 2015 [facility] [id number], [place] [address] Jan, [facility] [address], [place] [address]- 280[address] Mar, [facility] [address], [place] [address]- 4[address] Mar, [facility] [address], [place] [address]- [address] February, [facility] [address] [address] February, [facility] [address], [place] [address]- [address]27 February, [facility] [address] [place] [address]- [address] February, [facility] [address], [place] [address]- 8540 Dec, [facility] [address] [place] [address]- [address] Nov, [facility] [id number] [place] [address]- [address] Nov, IMMUNIZATIONS No Known Immunizations SOCIAL HISTORY Never Assessed REASON FOR VISIT Emphysema complications- is coughig up more phlem that is blood tinged-Katelyn Best RN PLAN OF CARE Activity Details Follow Up 6 Months Reason: VITAL SIGNS Height 70 in 2017-07-30 Weight 186 lbs 2017-07-30 Temperature 97.9 degrees Fahrenheit 2017-07-30 Heart Rate 115 bpm 2017-07-30 Respiratory Rate 26 2017-07-30 Oximetry 98 % 2017-07-30 BMI 26.69 kg/m2 2017-07-30 Blood pressure systolic 122 mmHg 2017-07-30 Blood pressure diastolic 78 mmHg 2017-07-30 MEDICATIONS Medication Instructions Dosage Frequency Start Date End Date Duration Status Diclofenac Sodium 75 MG Orally Twice a day,prn 1 tablet with food or milk February, Active Zithromax Z-Sebastian 250 MG Orally Once a day 2 tablets on the first day, then 1 tablet daily for 4 days 24h Jul, Jul, 5 day(s) Active ProAir HFA 108 (90 Base) mcg/act Inhalation 4 times a day 2 puffs as needed 6h February, 30 days Active Advair Diskus 250-50 MCG/DOSE Inhalation Twice a day 1 puff 12h February, 30 days Active Flexeril 10 MG Orally Three times a day 1 tablet as needed 8h Active PredniSONE 20 mg Orally Once a day,pc 2 tablets Jul, Jul, 05 days Active RESULTS No Results PROCEDURES Procedure Date Ordered Result Body Site MEASURE BLOOD OXYGEN LEVEL Jul 30, 2017 INSTRUCTIONS MEDICATIONS ADMINISTERED No Known Medications MEDICAL (GENERAL) HISTORY Type Description Date Medical History alcohol abuse Medical History depression Medical History COPD Surgical History Spinal Tap at 02/2014 Hospitalization History pt was sent to [facility] for multiple seizures (alcohol related) February 2014 Hospitalization History pt overdosed on Ativan was at [facility] April 14, 2015
--- OUTSIDE RECORDS SUMMARY | 2019-01-26 10:54 | XMS REPORT ---
Author Author DHIRAJ JENSEN [facility] [employer] Address Unknown Phone Unavailable Care Team Providers Care Rocket Assembly Operator Name Role Phone DHIRAJ JENSEN CP Unavailable Allergies, Adverse Reactions, Alerts Substance Reaction Event Type N.K.D.A. Info Not Available Non Drug Allergy Problems Problem Type Condition Code Onset Dates Condition Status Assessment Genital warts A63.0 Active Problem Anxiety state, unspecified 300.00 Active Medications Medication Code System Code Instructions Start Date End Date Status Dosage Podophyllum Resin [facility] [id number] 25 % Externally 2 times a day for 3 days then rest 4 days then repeat Jul 19, 2015 Sep 27, 2015 as directed Procedures Procedure Coding System Code Date Office Visit, Est Pt., Level 3 CPT-4 17284 Jul 19, 2015 Vital Signs Date/Time: Jul 19, 2015 Temperature 98.6 F Weight 150.9 lbs Height 70 in BMI 21.65 Index Blood Pressure Diastolic 84 mmHg Blood Pressure Systolic 110 mmHg Cardiac Monitoring Heart Rate 86 bpm Results No Known Results Summary Purpose eClinicalWorks Submission
[2019-01-26 11:14] LABS: BASOPHILS % (AUTO) 1 % (0-10); EOSINOPHILS % (AUTO) 0 % (0-10); HEMATOCRIT 45 % (40-54); HEMOGLOBIN 15.5 G/DL (13.3-17.7); LYMPHOCYTES # (AUTO) 2.1 X 10^3 (1.0-4.0); LYMPHOCYTES % (AUTO) 33 % (12-44); MEAN CORPUSCULAR HEMOGLOBIN 32 PG (25-34); MEAN CORPUSCULAR HGB CONC 34 G/DL (32-36); MEAN CORPUSCULAR VOLUME 94 FL (80-99); MEAN PLATELET VOLUME 9.2 FL (7.4-10.4); MONOCYTES # (AUTO) 0.7 X 10^3 (0.0-1.0); MONOCYTES % (AUTO) 11 % (0-12); NEUTROPHILS # (AUTO) 3.5 X 10^3 (1.8-7.8); NEUTROPHILS % (AUTO) 55 % (42-75); PLATELET COUNT 240 10^3/uL (130-400); RED CELL DISTRIBUTION WIDTH 12.9 % (10.0-14.5); WHITE BLOOD COUNT 6.3 10^3/uL (4.3-11.0)
[2019-01-26] MEDS ORDERED: B/P (11:22)
[2019-01-26 11:25] LABS: INR 0.9 (0.8-1.4); PROTHROMBIN TIME PATIENT 12.2 SEC (12.2-14.7)
[2019-01-26 11:26] LABS: ALANINE AMINOTRANSFERASE 22 U/L (0-55); ALBUMIN 4.9 GM/DL (3.2-4.5); ALKALINE PHOSPHATASE 65 U/L (40-136); BILIRUBIN,TOTAL 0.4 MG/DL (0.1-1.0); BUN/CREATININE RATIO 12; CALCIUM 9.8 MG/DL (8.5-10.1); CARBON DIOXIDE 25 MMOL/L (21-32); CHLORIDE 103 MMOL/L (98-107); CREATININE SERUM 0.85 MG/DL (0.60-1.30); GFR ESTIMATED > 60; GLUCOSE 100 MG/DL (70-105); MAGNESIUM 2.1 MG/DL (1.8-2.4); POTASSIUM 4.5 MMOL/L (3.6-5.0); SODIUM 136 MMOL/L (135-145); TOTAL PROTEIN 7.8 GM/DL (6.4-8.2)
[2019-01-26] MEDS ORDERED: ANTACID SUSP 30 ML UDC (MYLANTA) PO ONE (11:30)
[2019-01-26] MEDS ORDERED: LIDOCAINE 2% VISCOUS 15 ML UDC PO ONE (11:30)
--- NOTE | 2019-01-26 11:31 | ED Chest Pain ---
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 Nursing Sepsis Screen: No Definite Risk Source: patient Exam Limitations: no limitations History of Present Illness Date Seen by Provider: Jan 26, 2019 Time Seen by Provider: 11:04 Initial Comments Here for of chest pain for the last 2 days that is central and radiating to the neck. This is been intermittent for the last month. Also noted some shortness of air. Patient admits to drinking 6-8 beers a day and has for several months. He's been on and off alcohol. He also chews tobacco and occasionally smokes. History of withdrawal seizures in the past. Sent here from [facility] due to chest pain for further workup. Does have some vomiting in the mornings. Timing/Duration: 2-3 days Severity/Quality: moderate, aching, burning, ingestion Location: central Radiation: neck Activities at Onset: emotional stress Prior CP/Workup: no prior cardiac workup ASA po LAWN CARE PROFESSIONAL: No NTG SL LAWN CARE PROFESSIONAL: No Associated Symptoms: abdominal pain; No back pain, No edema, No fever/chills; nausea/vomiting, shortness of breath; No weakness Allergies and Home Medications Allergies Coded Allergies: buspirone (Unverified Adverse Reaction, Mild, 10/16/14) "Makes me go Crazy" Patient Home Medication List Home Medication List Reviewed: Yes Review of Systems Review of Systems Constitutional: see HPI; No chills, No fever EENTM: No Symptoms Reported Respiratory: See HPI; Denies Cough; Shortness of Air Cardiovascular: Chest Pain; Denies Edema, Denies Lightheadedness, Denies Palpitations Gastrointestinal: Abdominal Pain; Denies Blood Streaked Stools; Nausea Genitourinary: No Symptoms Reported Musculoskeletal: no symptoms reported Skin: no symptoms reported Psychiatric/Neurological: See HPI, Anxiety, Emotional Problems Endocrine: No Symptoms Reported All Other Systems Reviewed Negative Unless Noted: Yes Past Ldbdcsw-Yjvpyo-Aezrfr Hx Past Med/Social Hx: Reviewed Nursing Past Med/Soc Hx Patient Social History Alcohol Use: Denies Use Recreational Drug Use: No Smoking Status: Current Everyday Smoker Type Used: Cigarettes, Smokeless Tobacco Recent Foreign Travel: No Contact w/Someone Who Travel: No Recent Infectious Disease Expo: No Immunizations Up To Date Tetanus Booster (TDap): More than 5yrs PED Vaccines UTD: No Date of Influenza Vaccine: Jun 14, 2010 Past Medical History Surgeries: No Respiratory: No Cardiac: No Neurological: Yes (HX ALCOHOLISM) Reproductive Disorders: No Sexually Transmitted Disease: No HIV/AIDS: No Gastrointestinal: No (HX ALCOHOLISM) Musculoskeletal: No Endocrine: No Cancer: No Psychosocial: Yes Sleep Difficulties, Anxiety, Suicide Attempts, Bipolar, Depression Integumentary: No Blood Disorders: No Adverse Reaction/Blood Tranf: No Family Medical History Reviewed Nursing Family Hx Congestive heart failure 03 FATHER History of - disorder 03 MOTHER (SPINAL TUMORS) Myocardial infarction 03 FATHER Seizure disorder 09 BROTHER Heart Disease, CAD Under 55 Years Old, CAD Over 55 Years Old, Hypertension Physical Exam Vital Signs Vital Signs - First Documented 01/26/19 10:49 Temp 99.2 Pulse 77 Resp 18 B/P (MAP) 137/95 (109) Pulse Ox 99 O2 Delivery Room Air Capillary Refill : Less Than 3 Seconds Height, Weight, BMI Height: 5'9.00" Weight: 218lbs. 2.0oz. 98.473098lt; BMI Method:Stated General Appearance: No Apparent Distress HEENT: PERRL/EOMI, Pharyngeal Erythema Neck: Non Tender, Supple Respiratory: Lungs Clear, Normal Breath Sounds Cardiovascular: Regular Rate, Rhythm, No Murmur Gastrointestinal: Non Tender, Soft Extremity: Normal Range of Motion, Non Tender Neurologic/Psychiatric: Alert, Oriented x3, Other (noted to have some shakiness.) Skin: Normal Color, Warm/Dry Progress/Results/Core Measures Results/Orders Lab Results Laboratory Tests Test 01/26/19 10:56 Range/Units White Blood Count 6.3 4.3-11.0 10^3/uL Red Blood Count 4.80 4.35-5.85 10^6/uL Hemoglobin 15.5 13.3-17.7 G/DL Hematocrit 45 40-54 % Mean Corpuscular Volume 94 80-99 FL Mean Corpuscular Hemoglobin 32 25-34 PG Mean Corpuscular Hemoglobin Concent 34 32-36 G/DL Red Cell Distribution Width 12.9 10.0-14.5 % Platelet Count 240 130-400 10^3/uL Mean Platelet Volume 9.2 7.4-10.4 FL Neutrophils (%) (Auto) 55 42-75 % Lymphocytes (%) (Auto) 33 12-44 % Monocytes (%) (Auto) 11 0-12 % Eosinophils (%) (Auto) 0 0-10 % Basophils (%) (Auto) 1 0-10 % Neutrophils # (Auto) 3.5 1.8-7.8 X 10^3 Lymphocytes # (Auto) 2.1 1.0-4.0 X 10^3 Monocytes # (Auto) 0.7 0.0-1.0 X 10^3 Eosinophils # (Auto) 0.0 0.0-0.3 10^3/uL Basophils # (Auto) 0.0 0.0-0.1 10^3/uL Prothrombin Time 12.2 12.2-14.7 SEC INR Comment 0.9 0.8-1.4 Activated Partial Thromboplast Time 32 24-35 SEC D-Dimer 0.02 0.00-0.49 UG/ML Sodium Level 136 135-145 MMOL/L Potassium Level 4.5 3.6-5.0 MMOL/L Chloride Level 103 98-107 MMOL/L Carbon Dioxide Level 25 21-32 MMOL/L Anion Gap 8 5-14 MMOL/L Blood Urea Nitrogen 10 7-18 MG/DL Creatinine 0.85 0.60-1.30 MG/DL Estimat Glomerular Filtration Rate > 60 BUN/Creatinine Ratio 12 Glucose Level 100 70-105 MG/DL Calcium Level 9.8 8.5-10.1 MG/DL Corrected Calcium 8.5-10.1 MG/DL Magnesium Level 2.1 1.8-2.4 MG/DL Total Bilirubin 0.4 0.1-1.0 MG/DL Aspartate Amino Transf (AST/SGOT) 25 5-34 U/L Alanine Aminotransferase (ALT/SGPT) 22 0-55 U/L Alkaline Phosphatase 65 40-136 U/L Myoglobin 40.2 10.0-92.0 NG/ML Troponin I < 0.028 <0.028 NG/ML Total Protein 7.8 6.4-8.2 GM/DL Albumin 4.9 H 3.2-4.5 GM/DL My Orders Orders - CHUCK BROOKS MD Ekg Tracing (01/26/19 11:00) Cbc With Automated Diff (01/26/19 11:02) Magnesium (01/26/19 11:02) Chest 1 View, Ap/Pa Only (01/26/19 11:02) Cardiac Profile 1 (01/26/19 11:02) Comprehensive Metabolic Panel (01/26/19 11:02) Myoglobin Serum (01/26/19 11:02) Protime With Inr (01/26/19 11:02) Partial Thromboplastin Time (01/26/19 11:02) O2 (01/26/19 11:02) Monitor-Rhythm Ecg Trace Only (01/26/19 11:02) Lipid Panel (01/27/19 06:00) Ed Iv/Invasive Line Start (01/26/19 11:02) Fibrin Degradation Products (01/26/19 11:02) Lidocaine 2% Viscous 15 Ml (Xylocaine Vi (01/26/19 11:30) Antacid Suspension (Mylanta Suspension (01/26/19 11:30) Medications Given in ED Current Medications Medications Dose Ordered Sig/Gallito Route Start Time Stop Time Status Last Admin Dose Admin Al Hydrox/Mg Hydrox/Simethicone 30 ml ONCE ONCE PO 01/26/19 11:30 01/26/19 11:31 DC 01/26/19 11:33 30 ML Lidocaine HCl 15 ml ONCE ONCE PO 01/26/19 11:30 01/26/19 11:31 DC 01/26/19 11:34 15 ML Vital Signs/I&O 01/26/19 10:49 Temp 99.2 Pulse 77 Resp 18 B/P (MAP) 137/95 (109) Pulse Ox 99 O2 Delivery Room Air Blood Pressure Mean: 109 Progress Progress Note : Progress Note Seen and evaluated. Chest pain workup initiated. This is not likely to be cardiac related given the history seems to be more related to gastritis, probably from alcohol and chewing tobacco. GI cocktail given. Aspirin held due to concerns of gastritis. We will check cardiac labs as well as chest x-ray. I did discuss with the patient regarding his alcohol intake and alcoholism. I have recommended addiction treatment services at [facility] for which she will follow up with through his provider. Monitor patient. 1203: Overall improved. 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 He will take his Prilosec OTC twice a day for a week and then daily thereafter. He'll continue his Carafate. He needs to follow-up with the clinic for further evaluation and referral to surgeon for endoscopy as needed. He will call the addiction treatment services to work on that part of stopping alcohol. Patient states he wants to quit. He has had seizures in the past and he will need help. I will send a copy of chart to clinic. Discharge home with return precautions. Patient verbalize understanding of instructions and agreement with plan. Initial ECG Impression Date: Jan 26, 2019 Initial ECG Impression Time: 11:02 Initial ECG Rate: 73 Initial ECG Rhythm: Normal Sinus Comment Sinus rhythm with normal axis. No evidence of ST elevation IA. Similar but slower than previous of 24 January 2014. Interpreted by me. Diagnostic Imaging Diagonstic Imaging: Xray Plain Films/CT/US/NM/MRI: chest Comments NAME: JOSE FANG MED REC#: [id number] PT STATUS: REG ER : 1980 PHYSICIAN: CHUCK BROOKS MD ADMIT DATE: 01/26/19/ER Draft Date of Exam:01/26/19 CHEST 1 VIEW, AP/PA ONLY INDICATION: Chest pain. TIME OF EXAM: 11:28 a.m. COMPARISON: Correlation is made with prior study from 01/27/2014. FINDINGS: The heart size is normal. The pulmonary vascularity is unremarkable. The lungs are clear. No infiltrate, effusion or pneumothorax is detected. IMPRESSION: No acute cardiopulmonary process is detected. Dictated on workstation # [id number] Dict: 01/26/19 1146 Trans: 01/26/19 1153 [id number] Interpreted by: MALIK GLORIA MD Electronically signed by: Departure Impression Primary Impression: Chest pain Qualified Codes: R07.9 - Chest pain, unspecified Additional Impressions: Epigastric abdominal pain Alcohol abuse Disposition: 01 HOME, SELF-CARE Condition: Improved Departure-Patient Inst. Decision time for Depature: 12:05 Referrals: [facility] (PCP) Primary Care Physician [facility] (Family) Primary Care Physician Patient Instructions: Alcohol Abuse and Alcoholism (DC), Chest Pain That Is Not Caused by the Heart (DC), Gastritis Add. Discharge Instructions: All discharge instructions reviewed with patient and/or family. Voiced understanding. Please call the addiction treatment services at [facility] using the phone number listed on the card given to you. They can help you with stopping alcohol. Follow-up with your DrAubrey for recheck and further evaluation. You may take the Prilosec OTC twice daily for the next week and then once daily thereafter to reduce stomach acid. Return for worse pain, fever, vomiting, weakness, breathing problems or other signs as needed. Copy Copies To 1: LOGAN LOPEZ MD, TIMOTHY D MD Jan 26, 2019 11:31
--- NOTE | 2019-01-26 11:53 | Diagnostic Imaging Report ---
INDICATION: Chest pain. TIME OF EXAM: 11:28 a.m. COMPARISON: Correlation is made with prior study from 01/27/2014. FINDINGS: The heart size is normal. The pulmonary vascularity is unremarkable. The lungs are clear. No infiltrate, effusion or pneumothorax is detected. IMPRESSION: No acute cardiopulmonary process is detected. Dictated by: Dictated on workstation # [id number]
[2019-01-26 12:13] VITALS: BP 145/75
== END 2019-01-26 12:15 | disposition home or self-care (01) ==
LOC: EDUNIT# 10:47 → ER 10:48
DX: R07.9 Chest pain, unspecified (principal); R10.13 Epigastric pain; F10.20 Alcohol dependence, uncomplicated; F31.9 Bipolar disorder, unspecified; F41.9 Anxiety disorder, unspecified; F17.290 Nicotine dependence, other tobacco product, uncomplicated; Z88.8 Allergy status to other drugs, medicaments and biological substances; Z82.49 Family history of ischemic heart disease and other diseases of the circulatory system
CPT/HCPCS: 36415; 71045; 80053; 83735; 83874; 84484; 85025; 85379; 85610; 85730; 93005; 93041

== ENCOUNTER 2019-03-17 06:16 | Outpatient (CLI) | payer SELFPAY ==
[~2019-03-17] VITALS: Ht 175.3 cm; Wt 93.0 kg
[~2019-03-17 06:16] MED LIST changes: +B/P
[2019-03-17] MEDS ORDERED: CITA20TA9 PO (11:55)
[2019-03-17] MEDS ORDERED: FLUT1DIS26 IH (11:55)
[2019-03-17] MEDS ORDERED: OMEP20TA7 PO (11:55)
[2019-03-17] MEDS ORDERED: AMLO10TA7 PO (11:55)
== END 2019-03-17 12:07 | disposition home or self-care (01) ==
LOC: PREOP 06:16
PROVIDERS: ATTEND Surgery
DX: Z01.818 Encounter for other preprocedural examination (principal)

== ENCOUNTER 2019-03-24 08:11 | Day surgery (SDC) | payer OTHER ==
[~2019-03-24] VITALS: Ht 175.3 cm; Wt 93.0 kg
[~2019-03-24 08:11] MED LIST changes: +AMLO10TA7 PO; +CITA20TA9 PO; +FLUT1DIS26 IH; +OMEP20TA7 PO
[2019-03-24] MEDS ORDERED: LACTATED RINGERS 1,000 ML IV ONE (08:16)
[2019-03-24] MEDS ORDERED: LACTATED RINGERS 1,000 ML IV STA (08:28)
[2019-03-24] MEDS ORDERED: HURRICAINE EXT TUBE (BENZOCAINE) XX PRN (08:30)
[2019-03-24 08:35] VITALS: BP 127/89
--- NOTE | 2019-03-24 08:45 | Progress Note-Pre Operative ---
Pre-Operative Progress Note H&P Reviewed The H&P was reviewed, patient examined and has had some bright red blood from rectum, discussed risks and benefits of colonoscopy as well and wishes to proceed. Date Seen by Provider: Mar 24, 2019 Time Seen by Provider: 08:43 Date H&P Reviewed: Mar 24, 2019 Time H&P Reviewed: 08:43 Pre-Operative Diagnosis: hemetemesis, luq abdominal pain, bright red blood per rectum SERGEI ROBERTSON DO Mar 24, 2019 08:44
[2019-03-24] MEDS ORDERED: HURRICAINE EXT TUBE (BENZOCAINE) ONE (09:07)
[2019-03-24] MEDS ORDERED: MIDAZOLAM 5 MG/5 ML (VERSED) VIAL ONE (09:22)
[2019-03-24] MEDS ORDERED: proPOfol 200 MG/20 ML (DIPRIVAN) VIAL IV ONE (09:22)
[2019-03-24] MEDS ORDERED: PROPOFOL INJECTION 50 ML IV ONE ×2 (09:24→09:46)
--- NOTE | 2019-03-24 10:15 | Progress Note-Post Operative ---
Post-Operative Progess Note Surgeon (s)/Vice President Quality Assurance (s) Surgeon SERGEI ROBERTSON DO Vice President Quality Assurance: na Pre-Operative Diagnosis hemetemesis, luq abdominal pain, bright red blood per rectum Post-Operative Diagnosis gastritis, normal colon Procedure & Operative Findings Date of Procedure 03/24/19 Procedure Performed/Findings egd c biopsies, colonoscopy Anesthesia Type per underground mine superintendent Estimated Blood Loss Estimated blood loss (mL): none Specimens/Packing Specimens Removed antrum, body, ge SERGEI ROBERTSON DO Mar 24, 2019 10:15
--- NOTE | 2019-03-24 10:18 | Discharge Inst-Simple/Standard ---
Discharge Inst-Standard Patient Instructions/Follow Up Plan of Care/Instructions/FU: 2 weeks Paramjit Activity as Tolerated: Yes Discharge Diet: Regular Diet (avoid alcohol) SERGEI ROBERTSON DO Mar 24, 2019 10:18
[2019-03-24 10:30] VITALS: BP 83/50
[2019-03-24 11:00] VITALS: BP 114/81
--- NOTE | 2019-03-24 14:03 | Anesthesia-General Post-Op ---
MAC Patient Condition Mental Status/LOC: Same as Preop Cardiovascular: Satisfactory Nausea/Vomiting: Absent Respiratory: Satisfactory Pain: Controlled Complications: Absent Post Op Complications Complications None Follow Up Care/Instructions Patient Instructions None needed. Anesthesiology Discharge Order Discharge Order Patient was seen this morning after the procedure and he was doing well, no complaints, stable vital signs, no apparent adverse anesthesia problems. MILDRED NEVILLE DO Mar 24, 2019 14:03
--- NOTE | 2019-03-24 15:33 | OPERATIVE REPORT ---
DATE OF SERVICE: 03/24/2019 PREOPERATIVE DIAGNOSES: Hematemesis, left lower quadrant abdominal pain, bright red blood per rectum. POSTOPERATIVE DIAGNOSES: Gastritis, normal colon. PROCEDURE: EGD with biopsy, colonoscopy. SURGEON: Sergei Yusuf DO ANESTHESIA: Per PRACTICE LEAD. ESTIMATED BLOOD LOSS: None. COMPLICATIONS: None. SPECIMENS: Antrum, body and GE junction. INDICATIONS: The patient is a 38-year-old male who has been having hematemesis, left upper quadrant abdominal pain and having some bright red blood per rectum. He understands risks and benefits of procedure and wished to proceed with procedure. Consent was signed and on the chart. DESCRIPTION OF PROCEDURE: The patient was taken to the endoscopy suite, placed in left lower recumbent position. Timeout was performed. Scope was inserted in the mouth, down the esophagus, stomach and into the duodenum without difficulty. There were no polyps, mass or ulcerations in the duodenum. Scope was slowly retracted back into the stomach, which had some slight gastritis appearance. Biopsy of the antrum and body were obtained. Scope was retroflexed noting no other pathology. Scope was returned to its normal position, slowly withdrawn to the distal esophagus, which had normal appearance. No polyps, masses or ulcerations. Biopsy of the GE junction was obtained. Scope was then slowly retracted back until completely removed. The patient was then had a colonoscopy performed. No digital rectal exam was performed. There were no palpable polyps, masses or ulcerations. Scope was inserted in the rectum and advanced all the way to the cecum with minimal difficulty. Prep was adequate. Scope was intubated through the ileocecal valve, which had normal appearance. The ileum had normal appearance. Scope was retracted back into the colon. There were no polyps, masses or ulcerations in the cecum, ascending, transverse, descending and sigmoid colon. Once in the rectum, scope was retroflexed noting no other pathology. Scope was returned to its normal position, slowly withdrawn until completely removed. The patient tolerated procedure well without any complications. He was taken to recovery room in stable condition. RECOMMENDATIONS: The patient to continue on current medications. He would avoid gastritis triggers and also alcohol. We will have him follow up in 2 weeks to see how he is doing. Job ID: [id number] DocumentID: [id number] Dictated Date: 03/24/2019 10:24:53 Extended Day Teacher Date: 03/24/2019 15:32:59 Dictated By: SERGEI YUSUF DO
== END 2019-03-24 11:08 | disposition home or self-care (01) ==
LOC: ENDO 08:11
PROVIDERS: ATTEND Surgery
DX: K29.70 Gastritis, unspecified, without bleeding (principal); K92.0 Hematemesis; R10.32 Left lower quadrant pain; K62.5 Hemorrhage of anus and rectum; R63.4 Abnormal weight loss; F17.220 Nicotine dependence, chewing tobacco, uncomplicated; I10 Essential (primary) hypertension; J44.9 Chronic obstructive pulmonary disease, unspecified; G40.909 Epilepsy, unspecified, not intractable, without status epilepticus; F41.9 Anxiety disorder, unspecified; F32.9 Major depressive disorder, single episode, unspecified; K21.9 Gastro-esophageal reflux disease without esophagitis; Z79.899 Other long term (current) drug therapy; K31.89 Other diseases of stomach and duodenum

== ENCOUNTER 2019-07-15 14:51 | Emergency (ER) | payer OTHER ==
[~2019-07-15] VITALS: Ht 180 cm; Wt 88.0 kg
[2019-07-15] MEDS ORDERED: RT-ALBUTEROL/IPRATROPIUM 3 ML (DUONEB) VIAL INH ONE (15:15)
[2019-07-15] MEDS ORDERED: THIAMINE INJECTION 100 MG, FOLIC ACID INJECTION 1 MG, VITAMIN MULTI INJECTION 10 ML, MA... IV ONE ×5 (15:15)
--- NOTE | 2019-07-15 15:17 | ED Psychosocial ---
General Chief Complaint: Detox Stated Complaint: SWEATING;COLD CHILLS;VOMITING BLOOD Nursing Triage Note: HERE TO DETOX FROM COCAINE AND ETOH. Source: patient, RN notes reviewed, old records Exam Limitations: no limitations History of Present Illness Date Seen by Provider: Jul 15, 2019 Time Seen by Provider: 14:59 Initial Comments Patient presents to ER by private conveyance from home with chief complaint of fear of seizures and detox from alcohol and cocaine. Last use topical cocaine was approximately one week ago. Last use of alcohol was yesterday. He drinks bee r and he thinks he has drank about 200 cans of beer in the past 5-6 days. He has had delirium tremens or seizures and detox in the past. He went to [place] emergency room yesterday and stayed overnight at fluids and medications this made him feel better temporarily when he went home today he felt worse again. He called his primary care doctor, Stas Flanagan and spoke to the nurse and she sent him to the ER for detox. He feels a little short of breath has a history of emphysema and smokes about half a pack cigarettes a day plus he chews a can of chewing tobacco daily. He has not had any seizures nor taken any medications at home help with his symptoms. Patient reports he had an EGD about a year ago which did not demonstrate any varices or ulcers. No mention of esophageal esophagitis or gastritis. Allergies and Home Medications Allergies Coded Allergies: buspirone (Unverified Adverse Reaction, Severe, CAUSED SEIZURES, 03/17/19) Home Medications Amlodipine Besylate 10 Mg Tablet, 10 MG PO DAILY, (Reported) Citalopram Hydrobromide 20 Mg Tablet, 20 MG PO DAILY, (Reported) Famotidine 20 Mg Tablet, 20 MG PO BID Prescribed by: LIANA HINTON on 07/15/191614 Fluticasone/Salmeterol 1 Each Blst.w.dev, 1 EACH IH BID, (Reported) Lorazepam 1 Mg Tablet, 1 MG PO Q8H PRN for ANXIETY Prescribed by: LIANA HINTON on 07/15/191614 Omeprazole 20 Mg Tablet.dr, 20 MG PO BID, (Reported) Ondansetron 4 Mg Tab.rapdis, 4 MG PO Q6H PRN for NAUSEA/VOMITING Prescribed by: LIANA HINTON on 07/15/191614 Patient Home Medication List Home Medication List Reviewed: Yes Review of Systems Constitutional: No chills, No fever; malaise EENTM: No ear discharge, No ear pain Respiratory: No cough, No short of breath Cardiovascular: No chest pain, No edema Gastrointestinal: No abdominal pain; nausea, vomiting Genitourinary: No discharge, No dysuria Past Zxuapgn-Wmtloj-Xbqyun Hx Patient Social History Alcohol Use: Regular Use Alcohol Beverage of Choice: Beer Recreational Drug Use: Yes Drug of Choice: COCAINE Smoking Status: Current Everyday Smoker Type Used: Cigarettes, Smokeless Tobacco Former Smoker, Quit: Mar 17, 2017 2nd Hand Smoke Exposure: Yes Recent Foreign Travel: No Contact w/Someone Who Travel: No Recent Infectious Disease Expo: No Recent Hopitalizations: No Physical Abuse: No Sexual Abuse: No Immunizations Up To Date Tetanus Booster (TDap): More than 5yrs PED Vaccines UTD: No Date of Pneumonia Vaccine: Jul 26, 2014 Date of Influenza Vaccine: Jun 14, 2010 Seasonal Allergies Seasonal Allergies: Yes Past Medical History Surgeries: No Respiratory: Yes COPD, Emphysema Cardiac: Yes Hypertension Neurological: Yes (NONE IN LAST 5YRS) Seizure Disorder Reproductive Disorders: No Sexually Transmitted Disease: No HIV/AIDS: No Genitourinary: No Gastrointestinal: Yes (VOMITTING) Gastroesophageal Reflux Musculoskeletal: No Endocrine: No HEENT: No Loss of Vision: Denies Hearing Impairment: Denies Cancer: No Psychosocial: Yes (MILD ANXIETY) Sleep Difficulties, Anxiety, Suicide Attempts, Depression Integumentary: No Blood Disorders: No Adverse Reaction/Blood Tranf: No (N/A) Family Medical History Congestive heart failure 03 FATHER History of - disorder 03 MOTHER (SPINAL TUMORS) Myocardial infarction 03 FATHER Seizure disorder 09 BROTHER Heart Disease, CAD Under 55 Years Old, CAD Over 55 Years Old, Hypertension Physical Exam Vital Signs - First Documented 07/15/19 07/15/19 14:56 15:33 Temp 36.8 Pulse 118 Resp 18 B/P (MAP) 106/83 (91) Pulse Ox 94 O2 Delivery Room Air Capillary Refill : Less Than 3 Seconds Height, Weight, BMI Height: 5'9.00" Weight: 205lbs. 2.0oz. 93.276727sy; 27.00 BMI Method:Stated General Appearance: WD/WN, mild distress HEENT: PERRL/EOMI, TMs normal, pharynx normal Neck: non-tender, full range of motion, supple Respiratory: lungs clear, normal breath sounds, no respiratory distress, no accessory muscle use Cardiovascular: normal peripheral pulses, regular rate, rhythm, no edema Peripheral Pulses: 2+ Radial Pulses (R), 2+ Radial Pulses (L) Gastrointestinal: normal bowel sounds, non tender, soft Extremities: normal range of motion, non-tender, normal capillary refill Neurologic/Psychiatric: human resources technician II-XII nml as tested, no motor/sensory deficits, alert, normal mood/affect, oriented x 3 Appearance/Memory: appropriate appearance, appropriate insight, no memory impairment Behavior/Eye Contact: cooperative, good eye contact, normal speech Thoughts/Hallucinations: normal thought pattern, no apparent hallucination Skin: normal color, warm/dry Progress/Results/Core Measures Results/Orders Lab Results Laboratory Tests Test 07/15/19 15:10 Range/Units White Blood Count 10.2 4.3-11.0 10^3/uL Red Blood Count 4.94 4.35-5.85 10^6/uL Hemoglobin 16.4 13.3-17.7 G/DL Hematocrit 48 40-54 % Mean Corpuscular Volume 96 80-99 FL Mean Corpuscular Hemoglobin 33 25-34 PG Mean Corpuscular Hemoglobin Concent 35 32-36 G/DL Red Cell Distribution Width 12.4 10.0-14.5 % Platelet Count 219 130-400 10^3/uL Mean Platelet Volume 9.9 7.4-10.4 FL Neutrophils (%) (Auto) 67 42-75 % Lymphocytes (%) (Auto) 19 12-44 % Monocytes (%) (Auto) 12 0-12 % Eosinophils (%) (Auto) 1 0-10 % Basophils (%) (Auto) 1 0-10 % Neutrophils # (Auto) 6.9 1.8-7.8 X 10^3 Lymphocytes # (Auto) 1.9 1.0-4.0 X 10^3 Monocytes # (Auto) 1.2 H 0.0-1.0 X 10^3 Eosinophils # (Auto) 0.1 0.0-0.3 10^3/uL Basophils # (Auto) 0.1 0.0-0.1 10^3/uL Sodium Level 138 135-145 MMOL/L Potassium Level 3.9 3.6-5.0 MMOL/L Chloride Level 104 98-107 MMOL/L Carbon Dioxide Level 25 21-32 MMOL/L Anion Gap 9 5-14 MMOL/L Blood Urea Nitrogen 9 7-18 MG/DL Creatinine 0.89 0.60-1.30 MG/DL Estimat Glomerular Filtration Rate > 60 BUN/Creatinine Ratio 10 Glucose Level 101 70-105 MG/DL Calcium Level 9.7 8.5-10.1 MG/DL Corrected Calcium 9.3 8.5-10.1 MG/DL Total Bilirubin 0.5 0.1-1.0 MG/DL Aspartate Amino Transf (AST/SGOT) 28 5-34 U/L Alanine Aminotransferase (ALT/SGPT) 26 0-55 U/L Alkaline Phosphatase 81 40-136 U/L Troponin I < 0.028 <0.028 NG/ML Total Protein 7.7 6.4-8.2 GM/DL Albumin 4.5 3.2-4.5 GM/DL Urine Opiates Screen NEGATIVE NEGATIVE Urine Oxycodone Screen NEGATIVE NEGATIVE Urine Methadone Screen NEGATIVE NEGATIVE Urine Propoxyphene Screen NEGATIVE NEGATIVE Urine Barbiturates Screen NEGATIVE NEGATIVE Ur Tricyclic Antidepressants Screen NEGATIVE NEGATIVE Urine Phencyclidine Screen NEGATIVE NEGATIVE Urine Amphetamines Screen NEGATIVE NEGATIVE Urine Methamphetamines Screen NEGATIVE NEGATIVE Urine Benzodiazepines Screen POSITIVE H NEGATIVE Urine Cocaine Screen NEGATIVE NEGATIVE Urine Cannabinoids Screen NEGATIVE NEGATIVE Serum Alcohol < 10 <10 MG/DL My Orders Orders - LIANA HINTON Cbc With Automated Diff (07/15/19 15:11) Comprehensive Metabolic Panel (07/15/19 15:11) Troponin I (07/15/19 15:11) Ekg Tracing (07/15/19 15:11) Continuous Ekg Monitoring (07/15/19 15:11) Alcohol (07/15/19 15:11) Drug Screen Stat (Urine) (07/15/19 15:11) Ed Iv/Invasive Line Start (07/15/19 15:11) Albuterol/Ipra Inhalation Soln (Duoneb I (07/15/19 15:15) Chest 1 View, Ap/Pa Only (07/15/19 15:11) Svn Small Volume Nebulizer (07/15/19 15:11) Thiamine Injection (Vitamin B-1 Injectio (07/15/19 15:15) Lorazepam Injection (Ativan Injection) (07/15/19 15:30) Ketorolac Injection (Toradol Injection) (07/15/19 15:30) Ondansetron Injection (Zofran Injectio (07/15/19 15:30) Lorazepam Injection (Ativan Injection) (07/15/19 16:00) Medications Given in ED Current Medications Medications Dose Ordered Sig/Gallito Route Start Time Stop Time Status Last Admin Dose Admin Albuterol/ Ipratropium 3 ml ONCE ONCE INH 07/15/19 15:15 07/15/19 15:16 DC 07/15/19 15:32 3 ML Ketorolac Tromethamine 30 mg ONCE ONCE IVP 07/15/19 15:30 07/15/19 15:31 DC 07/15/19 15:29 30 MG Lorazepam 0.5 mg ONCE ONCE IVP 07/15/19 15:30 07/15/19 15:31 DC 07/15/19 15:30 0.5 MG Lorazepam 0.5 mg ONCE ONCE IVP 07/15/19 16:00 07/15/19 16:01 DC 07/15/19 15:58 0.5 MG Ondansetron HCl 8 mg ONCE ONCE IVP 07/15/19 15:30 07/15/19 15:31 DC 07/15/19 15:30 8 MG Thiamine HCl 100 mg/Folic Acid 1 mg/Multivitamins 10 ml/Magnesium Sulfate 2 gm/ Potassium Chloride/Dextrose/ Sod Cl 1,015.2 ml @ 125 mls/ hr ONCE ONCE IV 07/15/19 15:15 07/15/19 23:22 07/15/19 15:59 125 MLS/HR Vital Signs/I&O 07/15/19 07/15/19 14:56 15:33 Temp 36.8 Pulse 118 Resp 18 B/P (MAP) 106/83 (91) Pulse Ox 94 O2 Delivery Room Air Blood Pressure Mean: 91 Progress Progress Note : Time: 16:03 Progress Note Initially gave some Toradol and Ativan for symptoms. He still feeling a little anxious even after this so we gave him another half milligram Ativan. 8 mg Zofran has stopped his nausea. Labs, urine, chest x-ray. Initial ECG Impression Date: Jul 15, 2019 Initial ECG Impression Time: 15:48 Initial ECG Rate: 97 Initial ECG Rhythm: Normal Sinus Initial ECG Intervals: Normal Initial ECG Impression: Normal Initial ECG Comparisson: Unchanged Comment Normal sinus rhythm without ST elevation or depression. Diagnostic Imaging Diagonstic Imaging: Xray Plain Films/CT/US/NM/MRI: chest (1v) Comments No acute cardiopulmonary processes on one view chest x-ray. NAME: [facility] REC#: [id number] PT STATUS: REG ER : 1980 PHYSICIAN: LIANA HINTON MD ADMIT DATE: 07/15/19/ER Draft Date of Exam:07/15/19 CHEST 1 VIEW, AP/PA ONLY INDICATION: Detoxification from cocaine and alcohol. COMPARISON: January 26, 2019. TECHNIQUE: Single radiograph of the chest dated July 15, 2019. FINDINGS: The cardiac silhouette is within normal limits in size. No significant pulmonary vascular congestion. Pulmonary hyperinflation, though the lungs are clear of focal pulmonary opacity. No pleural effusion. No pneumothorax. No acute osseous abnormality. IMPRESSION: Pulmonary hyperinflation without superimposed acute cardiopulmonary abnormality. Dictated on workstation # [id number] Dict: 07/15/19 1559 Trans: 07/15/19 1606 [id number] Interpreted by: JEM FLORES MD Electronically signed by: Reviewed: Reviewed by Me Departure Communication (PCP) Dr Haque: Discussed case lab imaging EKG findings with Dr. Haque and she agrees with outpatient rehabilitation and detoxing. If we will provide him with a prescription for some Ativan she will have someone reached out to him and get an appointment for tomorrow morning. Impression Primary Impression: Withdrawn from alcohol detoxification program Disposition: 01 HOME, SELF-CARE Condition: Improved Departure-Patient Inst. Decision time for Depature: 16:11 Referrals: [facility] (PCP) Primary Care Physician YFN FLANAGAN (Family) Primary Care Physician Patient Instructions: Alcohol Abuse and Alcoholism (DC) Add. Discharge Instructions: Expect a phone call later today from [facility] to set up an appointment tomorrow. If you do not hear from them by tomorrow morning call them. One tablet of Ativan every 8 hours as needed for shakes, withdrawal symptoms. One tablet of Zofran every 6 hours under the tongue as needed for nausea or vomiting. Ibuprofen 800 mg every 8 hours as needed for pain. Tylenol 1000 g every 8 hours as needed for pain. Pepcid one tablet twice a day for the next week to help with the upset stomach. All discharge instructions reviewed with patient and/or family. Voiced understanding. Scripts Lorazepam (Ativan) 1 Mg Tablet 1 MG PO Q8H PRN for ANXIETY for 2 Days, #6 TAB 0 Refills Prov: LIANA HINTON 07/15/19 Ondansetron (Ondansetron Odt) 4 Mg Tab.rapdis 4 MG PO Q6H PRN for NAUSEA/VOMITING, #8 TAB 0 Refills Prov: LIANA HINTON 07/15/19 Famotidine (Pepcid) 20 Mg Tablet 20 MG PO BID for 7 Days, #14 TAB 0 Refills Prov: LIANA HINTON 07/15/19 Work/School Note: Work Release Form Date Seen in the Emergency Department: Jul 15, 2019 Return to Work: Jul 20, 2019 Restrictions: No Restrictions LIANA HINTON Jul 15, 2019 15:17
[2019-07-15 15:28] LABS: BASOPHILS # (AUTO) 0.1 10^3/uL (0.0-0.1); BASOPHILS % (AUTO) 1 % (0-10); EOSINOPHILS # (AUTO) 0.1 10^3/uL (0.0-0.3); EOSINOPHILS % (AUTO) 1 % (0-10); HEMATOCRIT 48 % (40-54); HEMOGLOBIN 16.4 G/DL (13.3-17.7); LYMPHOCYTES # (AUTO) 1.9 X 10^3 (1.0-4.0); LYMPHOCYTES % (AUTO) 19 % (12-44); MEAN CORPUSCULAR HEMOGLOBIN 33 PG (25-34); MEAN CORPUSCULAR HGB CONC 35 G/DL (32-36); MEAN CORPUSCULAR VOLUME 96 FL (80-99); MEAN PLATELET VOLUME 9.9 FL (7.4-10.4); MONOCYTES # (AUTO) 1.2 X 10^3 (0.0-1.0); MONOCYTES % (AUTO) 12 % (0-12); NEUTROPHILS # (AUTO) 6.9 X 10^3 (1.8-7.8); NEUTROPHILS % (AUTO) 67 % (42-75); PLATELET COUNT 219 10^3/uL (130-400); RED CELL DISTRIBUTION WIDTH 12.4 % (10.0-14.5); WHITE BLOOD COUNT 10.2 10^3/uL (4.3-11.0)
[2019-07-15] MEDS ORDERED: KETOROLAC 30 MG/ML VIAL IVP ONE (15:30)
[2019-07-15] MEDS ORDERED: LORazepam INJ 2 MG/ML (ATIVAN) VIAL IVP ONE ×2 (15:30→16:00)
[2019-07-15] MEDS ORDERED: ONDANSETRON 4 MG/2 ML (SDV) Z0FRAN IVP ONE (15:30)
[2019-07-15 15:38] LABS: AMPHETAMINE SCREEN, URINE NEGATIVE (NEGATIVE); BARBITURATE SCREEN URINE NEGATIVE (NEGATIVE); BENZODIAZEPINES SCREEN URINE POSITIVE (NEGATIVE); CANNABINOID SCREEN, URINE NEGATIVE (NEGATIVE); COCAINE SCREEN URINE NEGATIVE (NEGATIVE); METHADONE STAT NEGATIVE (NEGATIVE); METHAMPHETAMINE SCREEN URINE S NEGATIVE (NEGATIVE); OPIATE SCREEN URINE NEGATIVE (NEGATIVE); OXYCODONE STAT NEGATIVE (NEGATIVE); PROPOXYPHENE STAT NEGATIVE (NEGATIVE); TRICYCLIC ANTIDEPRESSANTS SCRE NEGATIVE (NEGATIVE)
[2019-07-15 15:44] LABS: ALANINE AMINOTRANSFERASE 26 U/L (0-55); ALBUMIN 4.5 GM/DL (3.2-4.5); ALKALINE PHOSPHATASE 81 U/L (40-136); BILIRUBIN,TOTAL 0.5 MG/DL (0.1-1.0); BUN/CREATININE RATIO 10; CALCIUM 9.7 MG/DL (8.5-10.1); CARBON DIOXIDE 25 MMOL/L (21-32); CHLORIDE 104 MMOL/L (98-107); CREATININE SERUM 0.89 MG/DL (0.60-1.30); GFR ESTIMATED > 60; GLUCOSE 101 MG/DL (70-105); POTASSIUM 3.9 MMOL/L (3.6-5.0); SODIUM 138 MMOL/L (135-145); TOTAL PROTEIN 7.7 GM/DL (6.4-8.2)
--- NOTE | 2019-07-15 16:07 | Diagnostic Imaging Report ---
INDICATION: Detoxification from cocaine and alcohol. COMPARISON: January 26, 2019. TECHNIQUE: Single radiograph of the chest dated July 15, 2019. FINDINGS: The cardiac silhouette is within normal limits in size. No significant pulmonary vascular congestion. Pulmonary hyperinflation, though the lungs are clear of focal pulmonary opacity. No pleural effusion. No pneumothorax. No acute osseous abnormality. IMPRESSION: Pulmonary hyperinflation without superimposed acute cardiopulmonary abnormality. Dictated by: Dictated on workstation # [id number]
[2019-07-15] MEDS ORDERED: LORA-405 PO (16:15)
[2019-07-15] MEDS ORDERED: ONDA4TAB11 PO (16:15)
[2019-07-15] MEDS ORDERED: FAMO-119 PO (16:15)
[2019-07-15 17:18] VITALS: BP 141/88
--- NOTE | 2019-07-15 17:32 | NUR ---
PHONED PT THAT HE LEFT HIS SCRIPT FOR ATIVAN IN ROOM, PT STATES YOU NEED TO ADMIT ME, EXPLAINED TO PT THAT IT IS UP TO PRIMARY CARE PROVIDERS TO ACCEPT ADMITTANCE FROM ED PROVIDER, PT HUNG UP DURING CONVERSATION
[2019-07-16] MEDS ORDERED: PANT40TA2 PO (15:06)
[2019-07-16] MEDS ORDERED: ALBU6.7H8 INH (15:14)
== END 2019-07-15 17:20 | disposition home or self-care (01) ==
LOC: EDUNIT# 14:51 → ER 14:52
DX: F10.239 Alcohol dependence with withdrawal, unspecified (principal); J43.9 Emphysema, unspecified; I10 Essential (primary) hypertension; G40.909 Epilepsy, unspecified, not intractable, without status epilepticus; K21.9 Gastro-esophageal reflux disease without esophagitis; F41.9 Anxiety disorder, unspecified; F32.9 Major depressive disorder, single episode, unspecified; F17.210 Nicotine dependence, cigarettes, uncomplicated; F17.220 Nicotine dependence, chewing tobacco, uncomplicated; Z88.8 Allergy status to other drugs, medicaments and biological substances; Z79.51 Long term (current) use of inhaled steroids; Z91.5 Personal history of self-harm; Z82.49 Family history of ischemic heart disease and other diseases of the circulatory system
CPT/HCPCS: 36415; 71045; 80053; 80306; 80320; 84484; 85025; 93005; 94640; 94760

== ENCOUNTER 2019-07-15 20:58 | Emergency (ER) | payer OTHER ==
[~2019-07-15] VITALS: Ht 180 cm; Wt 86.3 kg
[~2019-07-15 20:58] MED LIST changes: +FAMO-119 PO; +LORA-405 PO; +ONDA4TAB11 PO
--- NOTE | 2019-07-15 21:08 | ED General ---
General Stated Complaint: DETOX Source of Information: Patient Exam Limitations: No Limitations History of Present Illness Date Seen by Provider: Jul 15, 2019 Time Seen by Provider: 21:06 Initial Comments To ER by private vehicle with reports of needing detox, he was seen here earlier today for the same with alcohol level less than 10. He went home and got drunk and now has returned requesting detox again. Timing/Duration: 1-2 Days Severity: Moderate Associated Systoms: Denies Symptoms Allergies and Home Medications Allergies Coded Allergies: buspirone (Unverified Adverse Reaction, Severe, CAUSED SEIZURES, 03/17/19) Home Medications Amlodipine Besylate 10 Mg Tablet, 10 MG PO DAILY, (Reported) Citalopram Hydrobromide 20 Mg Tablet, 20 MG PO DAILY, (Reported) Famotidine 20 Mg Tablet, 20 MG PO BID Prescribed by: LIANA HINTON on 07/15/19 161 Fluticasone/Salmeterol 1 Each Blst.w.dev, 1 EACH IH BID, (Reported) Lorazepam 1 Mg Tablet, 1 MG PO Q8H PRN for ANXIETY Prescribed by: LIANA HINTON on 07/15/19 161 Omeprazole 20 Mg Tablet.dr, 20 MG PO BID, (Reported) Ondansetron 4 Mg Tab.rapdis, 4 MG PO Q6H PRN for NAUSEA/VOMITING Prescribed by: LIANA HINTON on 07/15/19 1615 Patient Home Medication List Home Medication List Reviewed: Yes Review of Systems Review of Systems Constitutional: see HPI EENTM: see HPI Respiratory: no symptoms reported Cardiovascular: no symptoms reported Genitourinary: no symptoms reported Musculoskeletal: no symptoms reported Skin: no symptoms reported Psychiatric/Neurological: No Symptoms Reported Hematologic/Lymphatic: No Symptoms Reported Immunological/Allergic: no symptoms reported Past Earciey-Sdvcix-Rfghdm Hx Patient Social History Alcohol Beverage of Choice: Beer Drug of Choice: COCAINE Type Used: Cigarettes, Smokeless Tobacco Former Smoker, Quit: Mar 17, 2017 2nd Hand Smoke Exposure: Yes Recent Foreign Travel: No Contact w/Someone Who Travel: No Recent Hopitalizations: No Immunizations Up To Date Tetanus Booster (TDap): More than 5yrs PED Vaccines UTD: No Date of Pneumonia Vaccine: Jul 26, 2014 Date of Influenza Vaccine: Jun 14, 2010 Seasonal Allergies Seasonal Allergies: Yes Past Medical History Surgeries: No Respiratory: Yes COPD, Emphysema Cardiac: Yes Hypertension Neurological: Yes (NONE IN LAST 5YRS) Seizure Disorder Reproductive Disorders: No Sexually Transmitted Disease: No HIV/AIDS: No Genitourinary: No Gastrointestinal: Yes (VOMITTING) Gastroesophageal Reflux Musculoskeletal: No Endocrine: No HEENT: No Loss of Vision: Denies Hearing Impairment: Denies Cancer: No Psychosocial: Yes (MILD ANXIETY) Sleep Difficulties, Anxiety, Suicide Attempts, Depression Integumentary: No Blood Disorders: No Adverse Reaction/Blood Tranf: No (N/A) Family Medical History Congestive heart failure 03 FATHER History of - disorder 03 MOTHER (SPINAL TUMORS) Myocardial infarction 03 FATHER Seizure disorder 09 BROTHER Heart Disease, CAD Under 55 Years Old, CAD Over 55 Years Old, Hypertension Physical Exam Vital Signs Vital Signs - First Documented 07/15/19 21:12 Temp 36.4 Pulse 94 Resp 18 B/P (MAP) 128/89 (102) Pulse Ox 98 O2 Delivery Room Air Capillary Refill : Height, Weight, BMI Height: 5'9.00" Weight: 205lbs. 2.0oz. 93.856917cm; 27.00 BMI Method:Stated General Appearance: No Apparent Distress, WD/WN Eyes: Bilateral Eye Normal Inspection, Bilateral Eye PERRL, Bilateral Eye EOMI HEENT: PERRL/EOMI, TMs Normal Neck: Full Range of Motion, Normal Inspection Respiratory: No Accessory Muscle Use, No Respiratory Distress Cardiovascular: Regular Rate, Rhythm, Normal Peripheral Pulses Gastrointestinal: Normal Bowel Sounds, Non Tender, Soft Extremity: Normal Capillary Refill, Normal Inspection Neurologic/Psychiatric: Alert, Other (Speech is slurred but he is alert and oriented maintaining his own airway) Skin: Normal Color, Warm/Dry Progress/Results/Core Measures Suspected Sepsis SIRS Temperature: Pulse: Respiratory Rate: Laboratory Tests 07/15/19 21:09: White Blood Count 11.1H Blood Pressure / Mean: Laboratory Tests 07/15/19 21:09: Creatinine 0.80, Platelet Count 212, Total Bilirubin 0.4 Results/Orders Lab Results Laboratory Tests Test 07/15/19 21:09 07/15/19 21:42 Range/Units White Blood Count 11.1 H 4.3-11.0 10^3/uL Red Blood Count 4.67 4.35-5.85 10^6/uL Hemoglobin 15.8 13.3-17.7 G/DL Hematocrit 45 40-54 % Mean Corpuscular Volume 96 80-99 FL Mean Corpuscular Hemoglobin 34 25-34 PG Mean Corpuscular Hemoglobin Concent 35 32-36 G/DL Red Cell Distribution Width 12.3 10.0-14.5 % Platelet Count 212 130-400 10^3/uL Mean Platelet Volume 9.5 7.4-10.4 FL Neutrophils (%) (Auto) 63 42-75 % Lymphocytes (%) (Auto) 23 12-44 % Monocytes (%) (Auto) 12 0-12 % Eosinophils (%) (Auto) 1 0-10 % Basophils (%) (Auto) 1 0-10 % Neutrophils # (Auto) 7.0 1.8-7.8 X 10^3 Lymphocytes # (Auto) 2.6 1.0-4.0 X 10^3 Monocytes # (Auto) 1.3 H 0.0-1.0 X 10^3 Eosinophils # (Auto) 0.1 0.0-0.3 10^3/uL Basophils # (Auto) 0.1 0.0-0.1 10^3/uL Sodium Level 131 L 135-145 MMOL/L Potassium Level 3.5 L 3.6-5.0 MMOL/L Chloride Level 100 98-107 MMOL/L Carbon Dioxide Level 21 21-32 MMOL/L Anion Gap 10 5-14 MMOL/L Blood Urea Nitrogen 6 L 7-18 MG/DL Creatinine 0.80 0.60-1.30 MG/DL Estimat Glomerular Filtration Rate > 60 BUN/Creatinine Ratio 8 Glucose Level 107 H 70-105 MG/DL Calcium Level 8.2 L 8.5-10.1 MG/DL Corrected Calcium 8.0 L 8.5-10.1 MG/DL Total Bilirubin 0.4 0.1-1.0 MG/DL Aspartate Amino Transf (AST/SGOT) 26 5-34 U/L Alanine Aminotransferase (ALT/SGPT) 23 0-55 U/L Alkaline Phosphatase 77 40-136 U/L Total Protein 6.8 6.4-8.2 GM/DL Albumin 4.3 3.2-4.5 GM/DL Serum Alcohol 346 *H <10 MG/DL Urine Color YELLOW Urine Clarity CLEAR Urine pH 6 5-9 Urine Specific [place] 1.010 L 1.016-1.022 Urine Protein NEGATIVE NEGATIVE Urine Glucose (UA) NEGATIVE NEGATIVE Urine Ketones NEGATIVE NEGATIVE Urine Nitrite NEGATIVE NEGATIVE Urine Bilirubin NEGATIVE NEGATIVE Urine Urobilinogen NORMAL NORMAL MG/DL Urine Leukocyte Esterase NEGATIVE NEGATIVE Urine RBC (Auto) NEGATIVE NEGATIVE Urine RBC NONE /HPF Urine WBC NONE /HPF Urine Squamous Epithelial Cells RARE /HPF Urine Crystals NONE /LPF Urine Bacteria NEGATIVE /HPF Urine Casts NONE /LPF Urine Mucus NEGATIVE /LPF Urine Culture Indicated NO Urine Opiates Screen NEGATIVE NEGATIVE Urine Oxycodone Screen NEGATIVE NEGATIVE Urine Methadone Screen NEGATIVE NEGATIVE Urine Propoxyphene Screen NEGATIVE NEGATIVE Urine Barbiturates Screen NEGATIVE NEGATIVE Ur Tricyclic Antidepressants Screen NEGATIVE NEGATIVE Urine Phencyclidine Screen NEGATIVE NEGATIVE Urine Amphetamines Screen NEGATIVE NEGATIVE Urine Methamphetamines Screen NEGATIVE NEGATIVE Urine Benzodiazepines Screen POSITIVE H NEGATIVE Urine Cocaine Screen NEGATIVE NEGATIVE Urine Cannabinoids Screen NEGATIVE NEGATIVE My Orders Orders - SIA BLANKENSHIP APRN Alcohol (07/15/19 21:05) Cbc With Automated Diff (07/15/19 21:05) Comprehensive Metabolic Panel (07/15/19 21:05) Ua Culture If Indicated (07/15/19 21:05) Ed Iv/Invasive Line Start (07/15/19 21:05) Drug Screen Stat (Urine) (07/15/19 21:05) Ns Iv 1000 Ml (Sodium Chloride 0.9%) (07/15/19 21:15) Vital Signs/I&O 07/15/19 21:12 Temp 36.4 Pulse 94 Resp 18 B/P (MAP) 128/89 (102) Pulse Ox 98 O2 Delivery Room Air Capillary Refill : Departure Communication (Admissions) 2200-patient has removed his own IV, states he would like to go on home now, he would like a rise in his mother's house on those a history and [place]. He is alert, speech is still slurred, he is standing up to the scene pleasant and appreciative. Impression Primary Impression: Alcohol abuse Disposition: 01 HOME, SELF-CARE Condition: Stable Departure-Patient Inst. Decision time for Depature: 22:05 Referrals: [facility] (PCP) Primary Care Physician YFN LU (Family) Primary Care Physician Patient Instructions: Alcohol Abuse and Alcoholism (DC) SIA BLANKENSHIP APRN Jul 15, 2019 21:08
[2019-07-15 21:15] LABS: BASOPHILS # (AUTO) 0.1 10^3/uL (0.0-0.1); BASOPHILS % (AUTO) 1 % (0-10); EOSINOPHILS # (AUTO) 0.1 10^3/uL (0.0-0.3); EOSINOPHILS % (AUTO) 1 % (0-10); HEMATOCRIT 45 % (40-54); HEMOGLOBIN 15.8 G/DL (13.3-17.7); LYMPHOCYTES # (AUTO) 2.6 X 10^3 (1.0-4.0); LYMPHOCYTES % (AUTO) 23 % (12-44); MEAN CORPUSCULAR HEMOGLOBIN 34 PG (25-34); MEAN CORPUSCULAR HGB CONC 35 G/DL (32-36); MEAN CORPUSCULAR VOLUME 96 FL (80-99); MEAN PLATELET VOLUME 9.5 FL (7.4-10.4); MONOCYTES # (AUTO) 1.3 X 10^3 (0.0-1.0); MONOCYTES % (AUTO) 12 % (0-12); NEUTROPHILS % (AUTO) 63 % (42-75); PLATELET COUNT 212 10^3/uL (130-400); RED CELL DISTRIBUTION WIDTH 12.3 % (10.0-14.5); WHITE BLOOD COUNT 11.1 10^3/uL (4.3-11.0)
[2019-07-15] MEDS ORDERED: NS IV 1000 ML 1,000 ML IV SCH (21:15)
[2019-07-15 21:32] LABS: ALANINE AMINOTRANSFERASE 23 U/L (0-55); ALBUMIN 4.3 GM/DL (3.2-4.5); ALKALINE PHOSPHATASE 77 U/L (40-136); BILIRUBIN,TOTAL 0.4 MG/DL (0.1-1.0); BUN/CREATININE RATIO 8; CALCIUM 8.2 MG/DL (8.5-10.1); CARBON DIOXIDE 21 MMOL/L (21-32); CHLORIDE 100 MMOL/L (98-107); GFR ESTIMATED > 60; GLUCOSE 107 MG/DL (70-105); POTASSIUM 3.5 MMOL/L (3.6-5.0); SODIUM 131 MMOL/L (135-145); TOTAL PROTEIN 6.8 GM/DL (6.4-8.2)
[2019-07-15 21:48] LABS: BILIRUBIN,URINE NEGATIVE (NEGATIVE); CLARITY,URINE CLEAR; COLOR,URINE YELLOW; GLUCOSE, URINE (UA) NEGATIVE (NEGATIVE); KETONES,URINE NEGATIVE (NEGATIVE); LEUKOCYTE ESTERASE ,URINE NEGATIVE (NEGATIVE); NITRITE,URINE NEGATIVE (NEGATIVE); PH,URINE 6 (5-9); PROTEIN,URINE NEGATIVE (NEGATIVE); UROBILINOGEN,URINE NORMAL (NORMAL)
[2019-07-15 21:55] LABS: BACTERIA,URINE NEGATIVE /HPF; SQUAMOUS EPITHELIAL CELL,UR RARE /HPF
[2019-07-15 22:00] LABS: AMPHETAMINE SCREEN, URINE NEGATIVE (NEGATIVE); BARBITURATE SCREEN URINE NEGATIVE (NEGATIVE); BENZODIAZEPINES SCREEN URINE POSITIVE (NEGATIVE); CANNABINOID SCREEN, URINE NEGATIVE (NEGATIVE); COCAINE SCREEN URINE NEGATIVE (NEGATIVE); METHADONE STAT NEGATIVE (NEGATIVE); METHAMPHETAMINE SCREEN URINE S NEGATIVE (NEGATIVE); OPIATE SCREEN URINE NEGATIVE (NEGATIVE); OXYCODONE STAT NEGATIVE (NEGATIVE); PROPOXYPHENE STAT NEGATIVE (NEGATIVE); TRICYCLIC ANTIDEPRESSANTS SCRE NEGATIVE (NEGATIVE)
[2019-07-15 22:12] VITALS: BP 128/89
[2019-07-16] MEDS ORDERED: PANT40TA2 PO (15:06)
[2019-07-16] MEDS ORDERED: ALBU6.7H8 INH (15:14)
== END 2019-07-15 22:09 | disposition home or self-care (01) ==
LOC: EDUNIT# 20:58 → ER 21:00
DX: F10.10 Alcohol abuse, uncomplicated (principal); I10 Essential (primary) hypertension; J43.9 Emphysema, unspecified; G40.909 Epilepsy, unspecified, not intractable, without status epilepticus; F41.9 Anxiety disorder, unspecified; F32.9 Major depressive disorder, single episode, unspecified; K21.9 Gastro-esophageal reflux disease without esophagitis; Z88.8 Allergy status to other drugs, medicaments and biological substances; Z91.5 Personal history of self-harm; Z79.51 Long term (current) use of inhaled steroids; Z87.891 Personal history of nicotine dependence; Z82.49 Family history of ischemic heart disease and other diseases of the circulatory system; Y90.8 Blood alcohol level of 240 mg/100 ml or more
CPT/HCPCS: 36415; 80053; 80306; 80320; 81000; 85025

== ENCOUNTER 2019-07-16 11:15 | Observation (INO) | payer OTHER ==
[2019-07-16] VITALS (11 sets, daily range): BP systolic 108–147; BP diastolic 77–133
[~2019-07-16] VITALS: Ht 175.3 cm; Wt 93.0 kg
[2019-07-16] MEDS ORDERED: LORazepam 0.5 MG (ATIVAN) TABLET PO STA (11:30)
[2019-07-16 11:38] LABS: BASOPHILS # (AUTO) 0.1 10^3/uL (0.0-0.1); BASOPHILS % (AUTO) 1 % (0-10); EOSINOPHILS # (AUTO) 0.1 10^3/uL (0.0-0.3); EOSINOPHILS % (AUTO) 1 % (0-10); HEMATOCRIT 45 % (40-54); HEMOGLOBIN 15.3 G/DL (13.3-17.7); LYMPHOCYTES % (AUTO) 21 % (12-44); MEAN CORPUSCULAR HEMOGLOBIN 33 PG (25-34); MEAN CORPUSCULAR HGB CONC 34 G/DL (32-36); MEAN CORPUSCULAR VOLUME 98 FL (80-99); MEAN PLATELET VOLUME 9.7 FL (7.4-10.4); MONOCYTES # (AUTO) 0.8 X 10^3 (0.0-1.0); MONOCYTES % (AUTO) 8 % (0-12); NEUTROPHILS # (AUTO) 6.9 X 10^3 (1.8-7.8); NEUTROPHILS % (AUTO) 69 % (42-75); PLATELET COUNT 195 10^3/uL (130-400); RED CELL DISTRIBUTION WIDTH 12.5 % (10.0-14.5)
--- NOTE | 2019-07-16 11:43 | ED Neurological Problem ---
General Stated Complaint: WITHDRAWAL Source: patient, EMS, other ([facility]) Exam Limitations: no limitations History of Present Illness Date Seen by Provider: Jul 16, 2019 Time Seen by Provider: 11:33 Initial Comments This 39-year-old white male presents after a seizure that occurred at [facility] this morning. Patient was at [facility] seeking help with drug and alcohol detoxification. Patient was seen in the emergency department here twice yesterday for concern for alcohol withdrawal. The patient's first evaluation his alcohol level was normal and on his assessment in the afternoon the patient's alcohol was approximately 350. The patient drank 12 pack of beer prior to going to [facility] this morning. Patient's drug use appears to be primarily confined alcohol and cocaine. Allergies and Home Medications Allergies Coded Allergies: buspirone (Unverified Adverse Reaction, Severe, CAUSED SEIZURES, 03/17/19) Home Medications Amlodipine Besylate 10 Mg Tablet, 10 MG PO DAILY, (Reported) Citalopram Hydrobromide 20 Mg Tablet, 20 MG PO DAILY, (Reported) Famotidine 20 Mg Tablet, 20 MG PO BID Prescribed by: LIANA HINTON on 07/15/19 161 Fluticasone/Salmeterol 1 Each Blst.w.dev, 1 EACH IH BID, (Reported) Lorazepam 1 Mg Tablet, 1 MG PO Q8H PRN for ANXIETY Prescribed by: LIANA HINTON on 07/15/191614 Omeprazole 20 Mg Tablet.dr, 20 MG PO BID, (Reported) Ondansetron 4 Mg Tab.rapdis, 4 MG PO Q6H PRN for NAUSEA/VOMITING Prescribed by: LIANA HINTON on 07/15/19 1615 Patient Home Medication List Home Medication List Reviewed: Yes Review of Systems Review of Systems Constitutional: No chills, No fever Eyes: No Symptoms Reported Ears, Nose, Mouth, Throat: no symptoms reported Respiratory: No cough, No short of breath Cardiovascular: No chest pain Gastrointestinal: abdominal pain Genitourinary: no symptoms reported Musculoskeletal: no symptoms reported Skin: no symptoms reported Psychiatric/Neurological: Tonic Clonic Seizures (seizure by history at [facility].) Endocrine: No Symptoms Reported Hematologic/Lymphatic: No Symptoms Reported Past Wthskny-Hpydoo-Ajlhck Hx Past Med/Social Hx: Reviewed Nursing Past Med/Soc Hx Patient Social History Alcohol Beverage of Choice: Beer Drug of Choice: COCAINE Type Used: Cigarettes, Smokeless Tobacco Former Smoker, Quit: Mar 17, 2017 2nd Hand Smoke Exposure: Yes Recent Hopitalizations: No Immunizations Up To Date Tetanus Booster (TDap): More than 5yrs PED Vaccines UTD: No Date of Pneumonia Vaccine: Jul 26, 2014 Date of Influenza Vaccine: Jun 14, 2010 Seasonal Allergies Seasonal Allergies: Yes Past Medical History Surgeries: No Respiratory: Yes COPD, Emphysema Cardiac: Yes Hypertension Neurological: Yes (NONE IN LAST 5YRS) Seizure Disorder Reproductive Disorders: No Sexually Transmitted Disease: No HIV/AIDS: No Genitourinary: No Gastrointestinal: Yes (VOMITTING) Gastroesophageal Reflux Musculoskeletal: No Endocrine: No HEENT: No Loss of Vision: Denies Hearing Impairment: Denies Cancer: No Psychosocial: Yes (MILD ANXIETY) Sleep Difficulties, Anxiety, Suicide Attempts, Depression Integumentary: No Blood Disorders: No Adverse Reaction/Blood Tranf: No (N/A) Family Medical History Congestive heart failure 03 FATHER History of - disorder 03 MOTHER (SPINAL TUMORS) Myocardial infarction 03 FATHER Seizure disorder 09 BROTHER Heart Disease, CAD Under 55 Years Old, CAD Over 55 Years Old, Hypertension Physical Exam Vital Signs Capillary Refill : Height, Weight, BMI Height: 5'9.00" Weight: 205lbs. 2.0oz. 93.603724yn; 26.00 BMI Method:Stated General Appearance: WD/WN, mild distress HEENT: normal ENT inspection Neck: full range of motion, supple, normal inspection Respiratory: lungs clear, normal breath sounds, no respiratory distress Cardiovascular: normal peripheral pulses, regular rate, rhythm Gastrointestinal: normal bowel sounds, non tender, soft Back: normal inspection Extremities: normal range of motion, non-tender, normal inspection Neurologic/Psychiatric: no motor/sensory deficits, alert, normal mood/affect, oriented x 3 Crainal Nerves: normal hearing, normal speech, PERRL Motor/Sensory: no motor deficit, no sensory deficit Skin: normal color, warm/dry Progress/Results/Core Measures Results/Orders Lab Results Laboratory Tests Test 07/16/19 11:20 07/16/19 11:30 Range/Units White Blood Count 10.0 4.3-11.0 10^3/uL Red Blood Count 4.58 4.35-5.85 10^6/uL Hemoglobin 15.3 13.3-17.7 G/DL Hematocrit 45 40-54 % Mean Corpuscular Volume 98 80-99 FL Mean Corpuscular Hemoglobin 33 25-34 PG Mean Corpuscular Hemoglobin Concent 34 32-36 G/DL Red Cell Distribution Width 12.5 10.0-14.5 % Platelet Count 195 130-400 10^3/uL Mean Platelet Volume 9.7 7.4-10.4 FL Neutrophils (%) (Auto) 69 42-75 % Lymphocytes (%) (Auto) 21 12-44 % Monocytes (%) (Auto) 8 0-12 % Eosinophils (%) (Auto) 1 0-10 % Basophils (%) (Auto) 1 0-10 % Neutrophils # (Auto) 6.9 1.8-7.8 X 10^3 Lymphocytes # (Auto) 2.0 1.0-4.0 X 10^3 Monocytes # (Auto) 0.8 0.0-1.0 X 10^3 Eosinophils # (Auto) 0.1 0.0-0.3 10^3/uL Basophils # (Auto) 0.1 0.0-0.1 10^3/uL My Orders Orders - KRISTOPHER NELSON MD Cbc With Automated Diff (07/16/19 11:30) Comprehensive Metabolic Panel (07/16/19 11:30) Lipase (07/16/19 11:30) Alcohol (07/16/19 11:30) Drug Screen Stat (Urine) (07/16/19 11:30) Ekg Tracing (07/16/19 11:30) Chest 1 View, Ap/Pa Only (07/16/19 11:30) Lorazepam Tablet (Ativan Tablet) (07/16/19 11:30) Progress Progress Note : Time: 11:55 Progress Note Patient received a milligram of Ativan orally. Initiated an evaluation of the patient to include drug screen, EKG, troponin glucose, electrolytes, and chest x-ray. Telephonewas undertaken with Dr. Haque. Patient was admitted for further observation and care. Departure Communication (Admissions) Time/Spoke to Admitting Phy: 11:59 Dr. Haque. Impression Primary Impression: Alcohol abuse Additional Impressions: Drug abuse History of seizure Disposition: ADMITTED INPATIENT Condition: Improved Admissions Decision to Admit Reason: Admit from ER (General) Decision to Admit/Date: Jul 16, 2019 Time/Decision to Admit Time: 11:58 Departure-Patient Inst. Referrals: [facility] (Family) Primary Care Physician [facility] (PCP) Primary Care Physician KRISTOPHER NELSON MD Jul 16, 2019 11:43
[2019-07-16 11:48] LABS: AMPHETAMINE SCREEN, URINE NEGATIVE (NEGATIVE); BARBITURATE SCREEN URINE NEGATIVE (NEGATIVE); BENZODIAZEPINES SCREEN URINE POSITIVE (NEGATIVE); CANNABINOID SCREEN, URINE NEGATIVE (NEGATIVE); COCAINE SCREEN URINE NEGATIVE (NEGATIVE); METHADONE STAT NEGATIVE (NEGATIVE); METHAMPHETAMINE SCREEN URINE S NEGATIVE (NEGATIVE); OPIATE SCREEN URINE NEGATIVE (NEGATIVE); OXYCODONE STAT NEGATIVE (NEGATIVE); PROPOXYPHENE STAT NEGATIVE (NEGATIVE); TRICYCLIC ANTIDEPRESSANTS SCRE NEGATIVE (NEGATIVE)
[2019-07-16] MEDS ORDERED: AMMONIA INHALATION 0.33 ML AMP ONE (11:52)
[2019-07-16 12:02] LABS: ALANINE AMINOTRANSFERASE 27 U/L (0-55); ALBUMIN 4.5 GM/DL (3.2-4.5); ALKALINE PHOSPHATASE 80 U/L (40-136); BILIRUBIN,TOTAL 0.4 MG/DL (0.1-1.0); BUN/CREATININE RATIO 5; CALCIUM 8.2 MG/DL (8.5-10.1); CARBON DIOXIDE 23 MMOL/L (21-32); CHLORIDE 108 MMOL/L (98-107); CREATININE SERUM 0.78 MG/DL (0.60-1.30); GFR ESTIMATED > 60; GLUCOSE 85 MG/DL (70-105); LIPASE 56 U/L (8-78); POTASSIUM 3.9 MMOL/L (3.6-5.0); SODIUM 142 MMOL/L (135-145); TOTAL PROTEIN 7.4 GM/DL (6.4-8.2)
--- NOTE | 2019-07-16 12:07 | NUR ---
[address] ALCO[address]EVEL RE[address] NLESON
--- NOTE | 2019-07-16 12:20 | Diagnostic Imaging Report ---
INDICATION: Seizure FINDINGS: The lungs are clear. The heart and vessels normal. No effusion or pneumothorax. IMPRESSION: No acute appearing abnormality. Dictated by: Dictated on workstation # [id number]
--- NOTE | 2019-07-16 13:40 | NUR ---
Pastoral care visit.
[2019-07-16] MEDS ORDERED: CATHETER FLUSH 10 ML SYR IV PRN (13:45)
[2019-07-16] MEDS ORDERED: 1/2 NS IV SOLUTION 1,000 ML IV PRN (13:47)
[2019-07-16] MEDS ORDERED: ANTACID SUSP 30 ML UDC (MYLANTA) PO PRN (14:00)
[2019-07-16] MEDS ORDERED: SENNA W/DOCUSATE (SENOKOT S) TABLET PO PRN (14:00)
[2019-07-16] MEDS ORDERED: D5 1/2 NS 1000 ML IV SOLUTION 1,000 ML IV PRN (14:00)
[2019-07-16] MEDS ORDERED: ONDANSETRON 4 MG (ZOFRAN) ORAL DISSOLVE TAB SL PRN (14:00)
[2019-07-16 14:07] LABS: PROTHROMBIN TIME PATIENT 13.6 SEC (12.2-14.7)
[2019-07-16] MEDS ORDERED: PANT40TA2 PO (15:06)
--- NOTE | 2019-07-16 15:07 | NUR ---
SPOKE WITH THE PATIENT ABOUT HIS MEDICATIONS. I [facility] WELL CALLED FOR A RECENTLY LIST FROM [facility] F[facility]: 07-15-19 ZOFRAN ODT 4MG Q6H #8 (NOT PICKED UP) 07-15-19 FAMOTIDINE 20MG BID #14 (NOT PICKED UP) [facility] FILLED: 07-11-19 ZOFRAN 4MG Q6H #15 07-11-19 CARAFATE 1GM QID #30 DID PICK THESE UP BUT STATES HE ISN'T CURRENTLY TAKING, ONLY TOOK 1 OR 2 DOSES [facility] FILLED: 05-20-19 ADVAIR 250/50 BID #60 (NOTED PAST DUE FILL DATE) 04-29-19 AMLODIPINE 10MG DAILY #30 (NOTED THE PAST DUE FILL DATE) 7 MIRTAZAPINE 15MG HS #30 (NO LONGER TAKING) 04-09-19 PROVENTIL 2 PUFFS QID PRN #1 6-03-01 CITALOPRAM 40MG DAILY #30 (NO LONGER TAKING) 6-03-01 LORAZEPAM 1MG Q4-6H PRN #6 (NOT TAKING) 5-19 LISINOPRIL 20MG DAILY #30 (NO LONGER TAKING) 5--19 PROTONIX 40MG DAILY #30 (STATES HE IS TAKING, NOTED PAST DUE FILL DATE) 5--19 TX-ACID GAS RELIEF 80MG CHEW QID #50 (NO LONGER TAKING) 4-- TIZANIDINE 4MG TID PRN #90 (NO LONGER TAKING, STOPPED DUE TO DRINKING ALCOHOL) 2--19 GABAPENTIN 300MG TID #90 HE STATES HE DOES NOT TAKE ANYTHING OTC.
[2019-07-16] MEDS: THIAMINE INJECTION 100 MG, FOLIC ACID INJECTION 1 MG, MAGNESIUM SULFATE 2 GM, VITAMIN M... IV SCH ×5 (15:09)
[2019-07-16] MEDS: NICOTINE 21 MG (NICODERM) PATCH TD SCH (15:09)
[2019-07-16] MEDS: NICOTINE 14 MG (NICODERM) PATCH TD SCH (15:09)
[2019-07-16] MEDS: ONDANSETRON 4 MG/2 ML (SDV) Z0FRAN IV PRN (15:09)
[2019-07-16] MEDS: LORazepam 1 MG (ATIVAN) TAB PO PRN (15:09)
[2019-07-16] MEDS: D5 1/2 NS W/KCL 20 MEQ/L 1,000 ML IV SCH ×2 (15:09→22:50)
[2019-07-16] MEDS: CATHETER FLUSH 10 ML SYR IV SCH ×2 (15:10→22:50)
[2019-07-16] MEDS ORDERED: ALBU6.7H8 INH (15:14)
[2019-07-16 15:26] LABS: BILIRUBIN,URINE NEGATIVE (NEGATIVE); CLARITY,URINE CLEAR; COLOR,URINE YELLOW; GLUCOSE, URINE (UA) NEGATIVE (NEGATIVE); KETONES,URINE NEGATIVE (NEGATIVE); LEUKOCYTE ESTERASE ,URINE NEGATIVE (NEGATIVE); NITRITE,URINE NEGATIVE (NEGATIVE); PH,URINE 6 (5-9); PROTEIN,URINE NEGATIVE (NEGATIVE); UROBILINOGEN,URINE NORMAL (NORMAL)
[2019-07-16 15:39] LABS: BACTERIA,URINE NEGATIVE /HPF; SQUAMOUS EPITHELIAL CELL,UR RARE /HPF
[2019-07-16] MEDS: RT-ALBUTEROL SULF 2.5 MG/3 ML PRE-MIX VIAL INH PRN ×2 (16:47→20:54)
--- NOTE | 2019-07-16 17:36 | History & Physical ---
TORY BLANCAS, 07/16/19 1736: HPI History of Present Illness: HPI: Pt here for alcohol detox. Stopped cocaine use 1 week ago, but for the last 5-6 days has been drinking. States he has consumed 200 beers in this time period, but family states at least 250, if not more. He has not been eating for the last 2 days. On Saturday, his mother took him to [facility] because he was puking blood. They let him leave that day, but he returned on Saturday. They kept him overnight and gave him a banana bag for EtOH intoxication. He was released yesterday morning and went the ER in [place] twice yesterday. This morning he went to [facility] intoxicated. Mother dropped him off at [facility] and waited in the car. He never came out, so she went inside to see what was going on. Pt's mother states he had a seizure at the clinic in the bathroom. Pt was given Zofran and Ativan there. Pt's family is also requesting mental health assistance as they state pt was diagnosed with bipolar at 15 and stopped taking medications for it when he was 19. Source: patient, family Exam Limitations: intoxication (pt's family assisted with questions) Date seen by provider: Jul 16, 2019 Time Seen by Provider: 13:53 Attending Physician Bola Machado MD [facility] Consult Date of Admission Jul 16, 2019 at 12:24 Home Medications Home Medications Reviewed patient Home Medication Reconciliation performed by pharmacy medication reconciliations cardiac technician and/or nursing. Patients Allergies have been reviewed. Allergies Coded Allergies: buspirone (Unverified Adverse Reaction, Severe, CAUSED SEIZURES, 03/17/19) WKW-Ohggyh-Qktgpp Hx Patient Social History Alcohol Use: Regular Use Recreational Drug Use: Yes (LAST USED ONE WEEK AGO) Drug of Choice: COCAINE Smoking Status: Current Everyday Smoker (1 pack per day) Type Used: Cigarettes, Smokeless Tobacco (1-1.5 cans daily) 2nd Hand Smoke Exposure: Yes Recent Foreign Travel: No Contact w/other who traveled: No Recent Hopitalizations: No Recent Infectious Disease Expo: No Immunizations Up To Date Tetanus Booster (TDap): More than 5yrs Date of Pneumonia Vaccine: Jul 26, 2014 Date of Influenza Vaccine: Jun 14, 2010 Past Medical History PMHx: 1. HTN 2. Emphysema 3. Anxiety 4. Bipolar disorder 5. Tachycardia - dx when little, unsure of type PSHx: denies Family Medical History Significant Family History: Heart Disease (mother, father, paternal grandmother and grandfather), Cancer (maternal aunt x2), CAD Under 55 Years Old, CAD Over 55 Years Old, COPD (mother), Diabetes (mother, paternal grandmother), Hypertension (mother), Renal Disease (mother and father), Other Conditions/Hx (paternal grandfather had Alzheimer's) Family History: Congestive heart failure 03 FATHER History of - disorder 03 MOTHER (SPINAL TUMORS) Myocardial infarction 03 FATHER Seizure disorder 09 BROTHER Review of Systems ([facility]) Constitutional: No chills, No fever; malaise, weight loss (30# in 2 months) EENTM: throat pain, other (sinus drainage) Respiratory: cough, short of breath Cardiovascular: chest pain, palpitations Gastrointestinal: abdominal pain; No constipation; diarrhea, hematemesis, nausea, vomiting, other (hematochezia) Genitourinary: dysuria; No frequency; pain (flank pain) Musculoskeletal: back pain, neck pain Skin: No lesions, No rash Psychiatric/Neurological: Anxiety; Denies Depressed; Numbness (bilateral hands) Physical Exam-([facility]) Physical Exam Vital Signs VS - Last 72 Hours, by Label 07/16/19 07/16/19 07/16/19 07/16/19 11:20 13:07 13:20 13:30 Temp 37.0 36.2 Pulse 92 84 87 Resp 20 21 20 B/P (MAP) 131/84 (100) 116/78 126/106 (113) Pulse Ox 98 92 99 O2 Delivery Room Air Room Air Room Air Room Air 07/16/19 07/16/19 07/16/19 07/16/19 13:31 14:00 15:00 16:00 Pulse 82 99 103 110 Resp 38 21 B/P (MAP) 124/91 (102) 130/84 (99) 108/77 (87) Pulse Ox 98 O2 Delivery Room Air Room Air Room Air 07/16/19 16:47 Pulse Ox 97 O2 Delivery Room Air Capillary Refill : Less Than 3 Seconds General Appearance: WD/WN, no apparent distress Eyes: Bilateral Eye Normal Inspection, Bilateral Eye EOMI HEENT: pharynx normal; No pale conjunctivae (R), No pale conjunctivae (L) Neck: non-tender, supple Respiratory: chest non-tender, lungs clear, normal breath sounds, no respiratory distress, no accessory muscle use Cardiovascular: regular rate, rhythm, no murmur, tachycardia Peripheral Pulses: 2+ Radial Pulses (L) (could not assess R radial pulse d/t wrist brace) Gastrointestinal: normal bowel sounds, tenderness (RUQ/LLQ), other (negative Hopper's sign) Extremities: normal inspection, pedal edema (1+ bilateral LE) Neurologic/Psychiatric: alert, oriented x 3 Skin: normal color, warm/dry Lymphatic: no adenopathy Assessment/Plan Assessment/Plan Assessment & Plan Assessment: 1. EtOH Detox 2. Hx of Mental Health Issues 3. Hematemesis and hematochezia Plan: 1. [facility] protocol. Inpatient rehab to follow with outpatient tx afterward 2. Family requested mental health support, but pt would need to agree. Further evaluation needed at a later date. 3. CBC to follow hemoglobin. March 2019 EGD and colonoscopy demonstrated gastritis and a normal colon. May need repeat scopes if fecal occult blood test is positive. Additionally, pt confirmed buspirone as an allergy but stated that his reaction to it is hives, not seizures. Clinical Quality Measures DVT/VTE Risk/Contraindication: Risk Factor Score Per Nursin RFS Level Per Nursing on Admit: 1=Low/No VTE PPX BOLA MACHADO MD 07/16/192047: Home Medications Allergies Coded Allergies: buspirone (Unverified Adverse Reaction, Severe, CAUSED SEIZURES, 03/17/19) PQJ-Aoxbbg-Eqrdwn Hx Family Medical History Family History: Congestive heart failure 03 FATHER History of - disorder 03 MOTHER (SPINAL TUMORS) Myocardial infarction 03 FATHER Seizure disorder 09 BROTHER Physical Exam-([facility]) Physical Exam General Appearance: WD/WN, no apparent distress Eyes: Bilateral Eye Normal Inspection HEENT: No scleral icterus (R), No scleral icterus (L) Respiratory: lungs clear, normal breath sounds, no respiratory distress Cardiovascular: regular rate, rhythm, no murmur Gastrointestinal: normal bowel sounds, soft, tenderness (RUQ/LLQ) Extremities: no pedal edema Neurologic/Psychiatric: alert, normal mood/affect Skin: normal color, warm/dry Assessment/Plan Assessment/Plan Admission Status: Observation (1) Alcohol abuse Status: Acute Assessment & Plan: Family desiring treatment, pt did nod his head when asked if he wanted to quit. Reports history of seizures with withdrawal in past. Treat withdrawal per [facility] protocol. EtOH 305 on admit. (2) Seizure-like activity Status: Acute Assessment & Plan: Less likely alcohol withdrawal seizure given high blood alcohol level at admit, possibly syncope related to toileting, consider GI bleed contribution. (3) Hematemesis Status: Acute Assessment & Plan: Had EGD/colo 03/2019 with gastritis and nml colon, per his report this has been occurring since before that time, monitor hemoglobin and check stool occult blood. (4) Chest pain Status: Acute Assessment & Plan: EKG okay, check troponin (5) DVT prophylaxis Status: Acute Assessment & Plan: Ambulate. Low risk per scoring, avoid pharmacologic prophylaxis due to concern for internal bleeding. Supervisory-Addendum Brief Verification & Attestation Participated in pt care: history, MDM, physical Personally performed: exam, history, MDM Care discussed with: Medical Student Procedures: n/a Verification and Attestation of Medical Student E/M Service A medical student performed and documented this service in my presence. I reviewed and verified all information documented by the medical student and made modifications to such information, when appropriate. I personally performed the physical exam and medical decision making. See my note section for the physical exam performed by me, if not in my note, findings not confirmed/repeated. See problem list for my assessment and plan. Bola Machado, Jul 16, 2019,20:48 TORY BLANCAS, Jul 16, 2019 17:36 BOLA MACHADO MD Jul 16, 2019 20:48
[2019-07-16] MEDS: LORazepam 1 MG (ATIVAN) TAB PO SCH (17:44)
[2019-07-16] MEDS: LORazepam INJ 2 MG/ML (ATIVAN) VIAL IV PRN ×2 (19:46→22:23)
[2019-07-16] MEDS: RT-ADVAIR HFA 115/21 MCG PER PUFF IH SCH (20:52)
[2019-07-16] MEDS ORDERED: NON-FORMULARY MEDICATION 1 EA EA (Fluticasone/Salmeterol (Advair 250-50 Diskus) 1 PUFF) IH SCH (21:00)
[2019-07-17] VITALS (12 sets, daily range): BP systolic 117–137; BP diastolic 81–98
[2019-07-17] MEDS: LORazepam 1 MG (ATIVAN) TAB PO SCH ×4 (00:28→17:14)
[2019-07-17] MEDS: D5 1/2 NS W/KCL 20 MEQ/L 1,000 ML IV SCH ×3 (01:35→16:13)
[2019-07-17 03:55] LABS: BASOPHILS # (AUTO) 0.1 10^3/uL (0.0-0.1); BASOPHILS % (AUTO) 1 % (0-10); EOSINOPHILS # (AUTO) 0.1 10^3/uL (0.0-0.3); EOSINOPHILS % (AUTO) 1 % (0-10); HEMATOCRIT 44 % (40-54); HEMOGLOBIN 14.6 G/DL (13.3-17.7); LYMPHOCYTES % (AUTO) 27 % (12-44); MEAN CORPUSCULAR HEMOGLOBIN 33 PG (25-34); MEAN CORPUSCULAR HGB CONC 33 G/DL (32-36); MEAN CORPUSCULAR VOLUME 98 FL (80-99); MEAN PLATELET VOLUME 9.6 FL (7.4-10.4); MONOCYTES # (AUTO) 0.8 X 10^3 (0.0-1.0); MONOCYTES % (AUTO) 11 % (0-12); NEUTROPHILS # (AUTO) 4.5 X 10^3 (1.8-7.8); NEUTROPHILS % (AUTO) 61 % (42-75); PLATELET COUNT 188 10^3/uL (130-400); RED CELL DISTRIBUTION WIDTH 12.6 % (10.0-14.5); WHITE BLOOD COUNT 7.5 10^3/uL (4.3-11.0)
[2019-07-17 04:17] LABS: ALANINE AMINOTRANSFERASE 25 U/L (0-55); ALBUMIN 3.8 GM/DL (3.2-4.5); ALKALINE PHOSPHATASE 65 U/L (40-136); BILIRUBIN,TOTAL 0.6 MG/DL (0.1-1.0); BUN/CREATININE RATIO 8; CALCIUM 8.7 MG/DL (8.5-10.1); CARBON DIOXIDE 25 MMOL/L (21-32); CHLORIDE 105 MMOL/L (98-107); GFR ESTIMATED > 60; GLUCOSE 99 MG/DL (70-105); POTASSIUM 3.8 MMOL/L (3.6-5.0); SODIUM 139 MMOL/L (135-145); TOTAL PROTEIN 6.4 GM/DL (6.4-8.2)
[2019-07-17] MEDS: CATHETER FLUSH 10 ML SYR IV SCH ×3 (06:19→22:00)
[2019-07-17] MEDS: PANTOPRAZOLE 40 MG (PROTONIX) TAB PO SCH (06:19)
[2019-07-17] MEDS: NICOTINE 21 MG (NICODERM) PATCH TD SCH ×2 (08:08→17:16)
[2019-07-17] MEDS: NICOTINE 14 MG (NICODERM) PATCH TD SCH ×2 (08:08→17:15)
[2019-07-17] MEDS: ONDANSETRON 4 MG/2 ML (SDV) Z0FRAN IV PRN ×3 (08:09→20:45)
[2019-07-17] MEDS: LORazepam INJ 2 MG/ML (ATIVAN) VIAL IV PRN ×7 (09:31→23:17)
--- NOTE | 2019-07-17 10:15 | NUR ---
REPORT RECEIVED FROM NUT ROASTER HELPER SUSANNA. PATIENT TO ROOM VIA WHEELCHAIR. STILL ASSUME CARE OF THE PATIENT AT THIS TIME. PATIENT IS REQUESTING ANXIETY MEDICATION.
--- NOTE | 2019-07-17 12:23 | NUR ---
CALLED DR MACHADO. PATIENT IS REPORTING CRUSHING CHEST PAIN RATED AT A 9. VITAL SIGNS: BP 126/88 HR 91. EKG AND TROPONIN
--- NOTE | 2019-07-17 15:08 | NUR ---
CM/SS attempted to talk to the patient and he was not available when went to the room.
[2019-07-17] MEDS: THIAMINE INJECTION 100 MG, FOLIC ACID INJECTION 1 MG, MAGNESIUM SULFATE 2 GM, VITAMIN M... IV SCH ×5 (16:13)
[2019-07-17] MEDS: RT-ADVAIR HFA 115/21 MCG PER PUFF IH SCH ×2 (16:28→18:51)
[2019-07-17] MEDS ORDERED: LOPERAMIDE 2 MG (IMODIUM) TABLET PO PRN (16:30)
[2019-07-17] MEDS ORDERED: diphenhydrAMINE 25 MG TAB (BENADRYL) PO PRN (16:30)
[2019-07-17] MEDS ORDERED: CALCIUM CARBONATE 500 MG (TUMS) TAB.CHEW PO PRN (16:30)
[2019-07-17] MEDS ORDERED: DOCUSATE SODIUM 100 MG (COLACE) CAP PO PRN (16:30)
--- NOTE | 2019-07-17 16:33 | Progress Note ---
Subjective Subjective/Events-last exam Pt seen at 0840 am. States he is feeling poorly, a lot of abdominal pain and reports vomiting with blood in it. Objective Exam Last Set of Vital Signs Vital Signs Date Time Temp Pulse Resp B/P (MAP) Pulse Ox O2 Delivery O2 Flow Rate FiO2 07/17/19 12:00 36.7 91 20 126/88 (101) 97 Room Air Capillary Refill : Less Than 3 Seconds I&O Intake and Output 07/17/19 00:00 Intake Total 3200 ml Output Total 1400 ml Balance 1800 ml Intake Oral 1200 ml IV Total 2000 ml Output Urine Total 1400 ml # Voids 1 # Bowel Movements 1 # Emeses 2 Daily Weight Change No General: Other (drowsy) Lungs: Clear to Auscultation, Normal Air Movement Heart: Regular Rate, No Murmurs Abdomen: Normal Bowel Sounds, Soft, Other (epigastric ttp) Neuro: Normal Speech Results/Procedures Lab Laboratory Tests 07/17/19 03:35: White Blood Count 7.5, Red Blood Count 4.47, Hemoglobin 14.6, Hematocrit 44, Mean Corpuscular Volume 98, Mean Corpuscular Hemoglobin 33, Mean Corpuscular Hemoglobin Concent 33, Red Cell Distribution Width 12.6, Platelet Count 188, Mean Platelet Volume 9.6, Neutrophils (%) (Auto) 61, Lymphocytes (%) (Auto) 27, Monocytes (%) (Auto) 11, Eosinophils (%) (Auto) 1, Basophils (%) (Auto) 1, Neutrophils # (Auto) 4.5, Lymphocytes # (Auto) 2.0, Monocytes # (Auto) 0.8, Eosinophils # (Auto) 0.1, Basophils # (Auto) 0.1, Sodium Level 139, Potassium Level 3.8, Chloride Level 105, Carbon Dioxide Level 25, Anion Gap 9, Blood Urea Nitrogen 6L, Creatinine 0.80, Estimat Glomerular Filtration Rate > 60, BUN/Creatinine Ratio 8, Glucose Level 99, Calcium Level 8.7, Corrected Calcium 8.9, Total Bilirubin 0.6, Aspartate Amino Transf (AST/SGOT) 28, Alanine Aminotransferase (ALT/SGPT) 25, Alkaline Phosphatase 65, Total Protein 6.4, Albumin 3.8 07/17/19 12:40: Troponin I < 0.028 Assessment/Plan Assessment/Plan Assessment & Plan Assessment: 1. EtOH Detox 2. Hx of Mental Health Issues 3. Hematemesis and hematochezia Plan: 1. [facility] protocol. Inpatient rehab to follow with outpatient tx afterward 2. Family requested mental health support, but pt would need to agree. Further evaluation needed at a later date. 3. CBC to follow hemoglobin. March 2019 EGD and colonoscopy demonstrated gastritis and a normal colon. May need repeat scopes if fecal occult blood test is positive. Additionally, pt confirmed buspirone as an allergy but stated that his reaction to it is hives, not seizures. (1) Alcohol abuse Status: Acute Assessment & Plan: Family desiring treatment, pt did nod his head when asked if he wanted to quit. Reports history of seizures with withdrawal in past. Treat withdrawal per [facility] protocol. EtOH 305 on admit. 07/17 Required 2 mg IV ativan and 3 mg PO ativan since admit (less than 24 hours) , continue ativan per [facility] protocol, hopeful to get inpatient treatment when safe for d/c. (2) Seizure-like activity Status: Acute Assessment & Plan: Less likely alcohol withdrawal seizure given high blood alcohol level at admit, possibly syncope related to toileting, consider GI bleed contribution. (3) Hematemesis Status: Acute Assessment & Plan: Had EGD/colo 03/2019 with gastritis and nml colon, per his report this has been occurring since before that time, monitor hemoglobin and check stool occult blood. 07/17 Hemoglobin stable, FOBT pending (4) Chest pain Status: Acute Assessment & Plan: EKG okay, check troponin 07/18 troponin neg yesterday, continue to monitor (5) DVT prophylaxis Status: Acute Assessment & Plan: Ambulate. Low risk per scoring, avoid pharmacologic prophylaxis due to concern for internal bleeding. Clinical Quality Measures DVT/VTE Risk/Contraindication: Risk Factor Score Per Nursin RFS Level Per Nursing on Admit: 1=Low/No VTE PPX BOLA MACHADO MD Jul 17, 2019 16:33
[2019-07-17] MEDS: ACETAMINOPHEN 500 MG TAB (TYLENOL) PO PRN (17:15)
--- NOTE | 2019-07-17 19:50 | NUR ---
THIS NURSE WALKS INTO PT ROOM, PT REPORTS HE THINKS HE HAD A SEIZURE 20 MINUTES AGO, STATES THAT HE WOKE UP STARTLED AND SWEATY. AND THAT HIS GIRL-FRIEND SAW HIS EYES TWITCH. THIS NURSE PERFORMED CIWA SCORING ASSESSMENT ON PT, WAS PROMPTED TO GIVE 1 MG ATIVAN. THIS NURSE TOLD PT THAT IF HE FEELS LIKE A SEIZURE MAY BE COMING ON TO NOTIFY THIS NURSE. WILL CONTINUE TO MONITOR.
[2019-07-17] MEDS: LORazepam 1 MG (ATIVAN) TAB PO PRN (20:07)
[2019-07-17] MEDS: IBUPROFEN TABLET 200 MG TAB PO PRN (20:46)
[2019-07-18] MEDS: ACETAMINOPHEN 500 MG TAB (TYLENOL) PO PRN ×2 (01:59→07:43)
[2019-07-18 04:00] VITALS: BP 131/81
[2019-07-18 06:08] LABS: BASOPHILS # (AUTO) 0.1 10^3/uL (0.0-0.1); BASOPHILS % (AUTO) 1 % (0-10); EOSINOPHILS # (AUTO) 0.1 10^3/uL (0.0-0.3); EOSINOPHILS % (AUTO) 2 % (0-10); HEMATOCRIT 45 % (40-54); HEMOGLOBIN 15.3 G/DL (13.3-17.7); LYMPHOCYTES # (AUTO) 1.4 X 10^3 (1.0-4.0); LYMPHOCYTES % (AUTO) 19 % (12-44); MEAN CORPUSCULAR HEMOGLOBIN 33 PG (25-34); MEAN CORPUSCULAR HGB CONC 34 G/DL (32-36); MEAN CORPUSCULAR VOLUME 98 FL (80-99); MONOCYTES # (AUTO) 0.8 X 10^3 (0.0-1.0); MONOCYTES % (AUTO) 11 % (0-12); NEUTROPHILS % (AUTO) 68 % (42-75); PLATELET COUNT 166 10^3/uL (130-400); RED CELL DISTRIBUTION WIDTH 12.4 % (10.0-14.5); WHITE BLOOD COUNT 7.4 10^3/uL (4.3-11.0)
[2019-07-18 06:31] LABS: ALANINE AMINOTRANSFERASE 23 U/L (0-55); ALKALINE PHOSPHATASE 81 U/L (40-136); BILIRUBIN,TOTAL 0.7 MG/DL (0.1-1.0); BUN/CREATININE RATIO 10; CALCIUM 8.9 MG/DL (8.5-10.1); CARBON DIOXIDE 22 MMOL/L (21-32); CHLORIDE 107 MMOL/L (98-107); GFR ESTIMATED > 60; GLUCOSE 101 MG/DL (70-105); POTASSIUM 3.8 MMOL/L (3.6-5.0); SODIUM 137 MMOL/L (135-145); TOTAL PROTEIN 6.7 GM/DL (6.4-8.2)
[2019-07-18] MEDS: PANTOPRAZOLE 40 MG (PROTONIX) TAB PO SCH (06:38)
[2019-07-18] MEDS: LORazepam INJ 2 MG/ML (ATIVAN) VIAL IV PRN ×12 (06:38→22:40)
[2019-07-18] MEDS: ONDANSETRON 4 MG/2 ML (SDV) Z0FRAN IV PRN ×3 (06:38→11:00)
[2019-07-18] MEDS: D5 1/2 NS W/KCL 20 MEQ/L 1,000 ML IV SCH ×4 (07:40→21:18)
[2019-07-18] MEDS: LORazepam 1 MG (ATIVAN) TAB PO SCH ×4 (07:42→17:12)
[2019-07-18] MEDS: NICOTINE 21 MG (NICODERM) PATCH TD SCH (07:42)
[2019-07-18] MEDS: NICOTINE PATCH REMOVAL TP SCH (07:42)
[2019-07-18] MEDS: NICOTINE 14 MG (NICODERM) PATCH TD SCH (07:42)
[2019-07-18] MEDS: RT-ADVAIR HFA 115/21 MCG PER PUFF IH SCH ×2 (07:48→19:53)
[2019-07-18] MEDS: CATHETER FLUSH 10 ML SYR IV SCH ×3 (07:54→22:41)
[2019-07-18 08:04] VITALS: BP 123/87
--- NOTE | 2019-07-18 10:53 | NUR ---
DR AREVALO NOTIFIED OF PT SEIZURE ACTIVITY. NO NEW ORDERS AT THIS TIME
[2019-07-18] MEDS: LORazepam INJ 2 MG/ML (ATIVAN) VIAL IM/IV PRN ×3 (11:01→15:00)
--- NOTE | 2019-07-18 11:18 | NUR ---
1042 - TRAFFIC ENGINEERING TECHNICIAN NOTIFIED THIS RN OF PT SEIZURE ACTIVITY. UPON ENTERING ROOM PT ACTIVELY SEIZING. JERKING MOTIONS OF FULL BODY WITNESSED. PT TURNED TO LEFT SIDE. DRY HEAVING AND DROOLING (CLEAR MUCUS) NOTED. 1044- 1 MG ATIVAN GIVEN IVP 1045 - SEIZURE ACTIVITY ENDED. PT FATIGUE RESPONDS TO NAME 1048 - 4 MG ZOFRAN GIVEN IVP 1049 - SEIZURE ACTIVITY BEGINS, FULL BODY JERKING MOTION, DROOLING (CLEAR MUCUS), DRY HEAVING NOTED. PT LAYING LEFT SIDE. 1050 - 1 MG ATIVAN GIVEN IVP 1051 - SEIZURE ACTIVITY ENDED. PT FATIGUE RESPONDS TO NAME 1053 - DR AREVALO NOTIFIED OF SEIZURE ACTIVITY, NO NEW ORDERS, CONTINUE DETOX PROTOCOL 1100 - PT VOICED CONCERN OF BEING SCARED. "I'M GOING TO CRY"
[2019-07-18 12:00] VITALS: BP 145/99
--- NOTE | 2019-07-18 12:16 | Progress Note - Hospitalist ---
Subjective HPI/CC On Admission Date Seen by Provider: Jul 18, 2019 Time Seen by Provider: 11:30 Subjective/Events-last exam Patient feeling much better Had 2 seizures earlier and not postictal Reports that he still continues to have a little bit of blood streaking when he throws up Bowels are moving Has had multiple scopes in the past Very difficult considering his long-standing mental illness and very heavy a lcohol use in need of alcohol rehab Check meds and labs Review of Systems Neurological: Incoordination Objective Exam Vital Signs Vital Signs Date Time Temp Pulse Resp B/P (MAP) Pulse Ox O2 Delivery O2 Flow Rate FiO2 07/18/19 19:53 93 Room Air 07/18/19 19:13 37.3 137 14 121/83 (96) Capillary Refill : Less Than 3 SecondsLess Than 3 Seconds General Appearance: No Apparent Distress, WD/WN, Chronically ill Respiratory: Chest Non Tender, Lungs Clear, Normal Breath Sounds, No Accessory Muscle Use, No Respiratory Distress Cardiovascular: Regular Rate, Rhythm, No Edema, No Gallop, No JVD, No Murmur, Normal Peripheral Pulses Neurologic/Psychiatric: Alert, Oriented x3, No Motor/Sensory Deficits, Normal Mood/Affect Results/Procedures Lab Laboratory Tests 07/18/19 05:40 Patient resulted labs reviewed. Assessment/Plan Assessment and Plan Assess & Plan/Chief Complaint Assessment: ETOH withdrawal Seizure-like activity Mental illness Hematemesis Plan: Ativan Monitor closely Diagnosis/Problems Diagnosis/Problems (1) Alcohol withdrawal seizure Status: Acute Qualifiers: Complication of substance-induced condition: uncomplicated Qualified Codes: F10.230 - Alcohol dependence with withdrawal, uncomplicated (2) Anxiety disorder Status: Chronic Qualifiers: Anxiety disorder type: generalized anxiety disorder Qualified Codes: F41.1 - Generalized anxiety disorder (3) Bipolar disorder Status: Chronic (4) Non-compliance with treatment Status: Chronic (5) Hematemesis Status: Chronic Qualifiers: Nausea presence: unspecified Qualified Codes: K92.0 - Hematemesis Clinical Quality Measures DVT/VTE Risk/Contraindication: Risk Factor Score Per Nursin RFS Level Per Nursing on Admit: 1=Low/No VTE PPX YONNY AREVALO DO Jul 18, 2019 12:16
[2019-07-18] MEDS: THIAMINE INJECTION 100 MG, FOLIC ACID INJECTION 1 MG, MAGNESIUM SULFATE 2 GM, VITAMIN M... IV SCH ×5 (14:00)
--- NOTE | 2019-07-18 15:03 | NUR ---
1437 - SHANTA FARIAS IN ROOM, CALLED FOR THIS RN. PT HAS BLANK STARE AND BEGINS TO HAVE VISIBLE TREMORS. 1438 - THIS RN ENTER PT ROOM, PT NOT RESPONDING TO VERBAL STIMULI, VISIBLE TREMORS. 1MG ATIVAN GIVEN IV PER PROTOCOL. 1440 - PT HAS FULL BODY JERKING, PT TURNED TO LEFT SIDE. DROOLING NOTED. 1441 - 1 MG ATIVAN GIVEN IV 1442 - FULL BODY JERKING CEASE. PT RESPONDS TO PAINFUL STIMULI 1445 - PT RESPONDS TO VERBAL STIMULI
[2019-07-18 16:27] VITALS: BP 132/86
[2019-07-18 19:13] VITALS: BP 121/83
[2019-07-18] MEDS: IBUPROFEN TABLET 200 MG TAB PO PRN (20:01)
[2019-07-18] MEDS: fentaNYL INJECTION 100 MCG/2 ML AMP IVP PRN (22:40)
[2019-07-18 23:50] VITALS: BP 128/83
--- NOTE | 2019-07-19 | NUR ---
PT ASLEEP AT THIS TIME, HE IS ON CIWA SCALE AND HAD BEEN ADMIN ATIVAN AT 2230. WINE PASTEURIZER NOTIFIED AND SUGGESTED NOT ADMIN PO SCHEDULED DOSE D/T PT SLEEPING AT THIS TIME AND D/T ATIVAN IV ADMIN AT 2230
--- NOTE | 2019-07-19 03:26 | NUR ---
PT HAS BEEN ASLEEP SINCE APPROX 2300. CIWA SCALE USED Q H AND SCORING AT 0 D/T PT PEACEFULLY SLEEPING.
[2019-07-19 04:00] VITALS: BP 135/90
[2019-07-19] MEDS: D5 1/2 NS W/KCL 20 MEQ/L 1,000 ML IV SCH ×4 (04:17→17:57)
[2019-07-19] MEDS: LORazepam INJ 2 MG/ML (ATIVAN) VIAL IV PRN ×5 (04:29→21:47)
[2019-07-19] MEDS: LORazepam 1 MG (ATIVAN) TAB PO SCH ×4 (06:00→17:56)
--- NOTE | 2019-07-19 06:30 | NUR ---
THIS NURSE BRAIDED BAND ASSEMBLER WAS INFORMED BY [facility] OUTREACH WORKER AND FELLOW RN THAT WHEN THEY WERE ANSWERING PT'S CALL LIGHT, THERE WAS INAPPROPRIATE CONTACT BETWEEN HIM AND FEMALE VISITOR.
[2019-07-19] MEDS: RT-ADVAIR HFA 115/21 MCG PER PUFF IH SCH ×2 (06:46→20:57)
[2019-07-19] MEDS: CATHETER FLUSH 10 ML SYR IV SCH ×3 (07:00→22:00)
[2019-07-19] MEDS: PANTOPRAZOLE 40 MG (PROTONIX) TAB PO SCH (07:01)
[2019-07-19 08:00] VITALS: BP 108/73
[2019-07-19] MEDS: NICOTINE 21 MG (NICODERM) PATCH TD SCH (08:34)
[2019-07-19] MEDS: NICOTINE 14 MG (NICODERM) PATCH TD SCH (08:34)
[2019-07-19] MEDS: NICOTINE PATCH REMOVAL TP SCH (08:34)
[2019-07-19] MEDS: ONDANSETRON 4 MG/2 ML (SDV) Z0FRAN IV PRN (09:18)
[2019-07-19] MEDS: LORazepam INJ 2 MG/ML (ATIVAN) VIAL IM/IV PRN ×2 (09:18→12:08)
--- NOTE | 2019-07-19 09:19 | NUR ---
0905 - RN UTILIZATION MANAGEMENT UM NOTIFIED THIS RN THAT PT WAS ACTIVELY VOMITING 0907- RN ENTERED ROOM PT STATES "ITS COMING", FULL BODY JERKING BEGINS, PT TURNED TO LEFT SIDE, DROOLING NOTED, 0910 - 1 MG IV ATIVAN GIVEN, 4 MG IV ZOFRAN GIVEN. 09 - SEIZURE LIKE ACTIVITY CEASES. PT RESPONDS TO VOICE OPENING OF EYES. 0911 - PT ABLE TO FOLLOWING VERBAL CUES.
[2019-07-19] MEDS: LORazepam 1 MG (ATIVAN) TAB PO PRN ×2 (10:20→20:02)
[2019-07-19 12:00] VITALS: BP 118/74
--- NOTE | 2019-07-19 12:09 | NUR ---
1203 - SHANTA PATINO TO PT ROOM. PT ACTIVELY VOMITING MUCUS WITH SMALL PARTICLE OF FOOD. 1205 - PT BEGAN SEIZURE ACTIVITY. FULL BODY JERKING, NOT RESPONSIVE TO VERBAL STIMULI. RN NOTIFIED BY RAMIRO. 1207 - RN TO PT ROOM PT CONTINUED SEIZURE ACTIVITY FULL BODY JERKING NON RESPONSIVE TO VERBAL STIMULI. 1 MG IV ATIVAN GIVEN. 1209 - SEIZURE ACTIVITY CEASE. 1212 - PT RESPONSIVE TO VERBAL STIMULI ABLE TO FOLLOW COMMANDS. 1213 - DR AREVALO IN ROOM AT THIS TIME. ORDER TO LIMIT VISITOR TO PROMOTE REST AND DUE TO INCREASED SEIZURE ACTIVITY.
--- NOTE | 2019-07-19 12:29 | Progress Note - Hospitalist ---
Subjective HPI/CC On Admission Date Seen by Provider: Jul 19, 2019 Time Seen by Provider: 12:00 Subjective/Events-last exam Patient had his girlfriend stay over last night and allegedly had two sessions of intercourse Just now had a pseudoseizure Alcohol withdrawal protocol maintained No more hematemesis Placed a nighttime restriction order for no company to stay over due to sleep deprivation can increase chance of pseudoseizures Review of Systems Neurological: Seizures Objective Exam Vital Signs Vital Signs Date Time Temp Pulse Resp B/P (MAP) Pulse Ox O2 Delivery O2 Flow Rate FiO2 07/19/19 12:00 37.4 109 18 118/74 (89) 98 Room Air Capillary Refill : Less Than 3 SecondsLess Than 3 Seconds General Appearance: No Apparent Distress, WD/WN Respiratory: Lungs Clear Cardiovascular: Regular Rate, Rhythm Neurologic/Psychiatric: Alert, Oriented x3, No Motor/Sensory Deficits, Normal Mood/Affect Results/Procedures Lab Patient resulted labs reviewed. Assessment/Plan Assessment and Plan Assess & Plan/Chief Complaint Assessment: ETOH withdrawal Seizure-like activity Mental illness Hematemesis Plan: Ativan Monitor closely Diagnosis/Problems Diagnosis/Problems (1) Alcohol withdrawal seizure Status: Acute Qualifiers: Complication of substance-induced condition: uncomplicated Qualified Codes: F10.230 - Alcohol dependence with withdrawal, uncomplicated (2) Anxiety disorder Status: Chronic Qualifiers: Anxiety disorder type: generalized anxiety disorder Qualified Codes: F41.1 - Generalized anxiety disorder (3) Bipolar disorder Status: Chronic (4) Non-compliance with treatment Status: Chronic (5) Hematemesis Status: Chronic Qualifiers: Nausea presence: unspecified Qualified Codes: K92.0 - Hematemesis Clinical Quality Measures DVT/VTE Risk/Contraindication: Risk Factor Score Per Nursin RFS Level Per Nursing on Admit: 1=Low/No VTE PPX YONNY AREVALO DO Jul 19, 2019 12:29
[2019-07-19] MEDS: fentaNYL INJECTION 100 MCG/2 ML AMP IVP PRN (12:39)
[2019-07-19] MEDS: THIAMINE INJECTION 100 MG, FOLIC ACID INJECTION 1 MG, MAGNESIUM SULFATE 2 GM, VITAMIN M... IV SCH ×5 (13:28)
--- NOTE | 2019-07-19 13:29 | NUR ---
NON ADMINISTERED 1400 SCHEDULED IV FLUID. ORDER TO ADMINISTER 3 BAGS TOTAL. THREE BAGS HAVE BEEN ADMINISTER.
--- NOTE | 2019-07-19 14:00 | NUR ---
report received from Katelyn Campbell RN at this time.
--- NOTE | 2019-07-19 14:01 | NUR ---
REPORT GIVEN TO GAIL FAYE
[2019-07-19 16:20] VITALS: BP 119/84
--- NOTE | 2019-07-19 17:40 | NUR ---
1739 --- PATIENT RANG LIGHT, WHILE THIS RN WAS STILL PCT ENTERED ROOM TO FIND PATIENT HAVING A TONIC CLONIC SEIZURE. THIS RN IMMEDIATELY NOTIFIED OF SEIZURE ACTIVITY. 1741 --- THIS RN IN ROOM FOUND PATIENT IN BED WITH BOTH HANDS GRIPPING THE RIGHT SIDE OF THE BED RAILS. THIS RN GRABBBED AHOLD OF THE PATIENT AND ASK THE PATIENT TO " ROLL OVER" PATIENT ROLLED TO HIS BACK AFTER BEING ASK TO ROLL OVER. 1744 --- 4 MG ATIVAN GIVEN IV ROUTE. 1745 ---PATIENT ON LEFT SIDE RESTING COMFORTABLY. 1751 ---PATIENT WOKE UP WHILE THIS RN WAS STILL IN THE ROOM AND LOOKED AT HIS FATHER AND STATED " CALL HER (HIS GIRLFRIEND) AND TELL HER NOW THAT I JUST HAD ANOTHER SIEZURE. THIS RN WILL CONT TO MONITOR THIS PATIENT FOR FURTHER SEIZURE ACTIVITY. PATIENT IS AWAKE AND TALKING ON HIS PHONE AT THIS TIME TO HIS S/O.
[2019-07-19 19:20] VITALS: BP 133/74
[2019-07-20 00:21] VITALS: BP 116/86
[2019-07-20] MEDS: LORazepam 1 MG (ATIVAN) TAB PO SCH ×2 (00:57→06:05)
[2019-07-20] MEDS: D5 1/2 NS W/KCL 20 MEQ/L 1,000 ML IV SCH (00:57)
[2019-07-20 04:25] VITALS: BP 112/77
--- NOTE | 2019-07-20 05:02 | NUR ---
PT HAS BEEN ASLEEP SINCE APPROX 2129. THIS NURSE MOTHER REPAIRER AND TECH HAVE CHECKED ON HIM Q 3O MINUTES TO AN HOUR. HE WOKE UP AT 0400 AND ASKED TECH FOR WATER AND WENT BACK TO SLEEP.
[2019-07-20] MEDS: CATHETER FLUSH 10 ML SYR IV SCH (06:05)
[2019-07-20] MEDS: PANTOPRAZOLE 40 MG (PROTONIX) TAB PO SCH (06:05)
[2019-07-20] MEDS: RT-ADVAIR HFA 115/21 MCG PER PUFF IH SCH (07:43)
--- NOTE | 2019-07-20 07:53 | Progress Note ---
Subjective Date Seen by a Provider: Jul 20, 2019 Time Seen by a Provider: 07:55 Subjective/Events-last exam Since he was last seen Mr. Nogueira has continued to have seizures or pseudo seizures, no more hematemesis. Review of Systems General: No Chills; Fatigue Pulmonary: No Dyspnea Cardiovascular: No: Chest Pain Gastrointestinal: Abdominal Pain (around umbilicus); No: Nausea, Vomiting, Melena, Hematochezia Genitourinary: No Hematuria Neurological: Seizures; No: Weakness, Numbness Objective Exam Last Set of Vital Signs Vital Signs Date Time Temp Pulse Resp B/P (MAP) Pulse Ox O2 Delivery O2 Flow Rate FiO2 07/20/19 07:43 94 Room Air 07/20/19 04:25 36.5 69 20 112/77 (89) Capillary Refill : Less Than 3 SecondsLess Than 3 Seconds I&O Intake and Output 07/20/19 00:00 Intake Total 6740 ml Output Total 1375 ml Balance 5365 ml Intake Oral 1740 ml IV Total 5000 ml Output Urine Total 1375 ml # Voids 2 General: Alert, Oriented X3, Cooperative Lungs: Clear to Auscultation Heart: Regular Rate, Normal S1, Normal S2, No Murmurs Abdomen: Normal Bowel Sounds, No Hepatosplenomegaly Other physical findings Tenderness throughout lower abdomen Clinical Quality Measures DVT/VTE Risk/Contraindication: Risk Factor Score Per Nursin RFS Level Per Nursing on Admit: 1=Low/No VTE PPX [facility] MED STUDENT Jul 20, 2019 07:52
[2019-07-20 08:00] VITALS: BP 129/75
--- NOTE | 2019-07-20 09:30 | NUR ---
PT LEFT AMA AFTER ADVICE NOT TO DUE TO SEIZURE ACTIVITY. PATIENT'S MOTHER TO TRANSPORT TO OUTPATIENT FACILITY OF HIS CHOICE, PER PATIENT.
[2019-07-20 10:25] VITALS: BP 129/75
--- NOTE | 2019-07-20 10:40 | Discharge Summary ---
[facility] MED STUDENT 07/20/19 1032: Discharge Summary Reconcile Patient Problems Problems Reviewed?: No Instructions for Patient Via Klin[facility], Assessment/Instructions Assessment: ETOH withdrawal Seizure-like activity Bipolar disorder Anxiety Hematemesis Cough Plan: Patient left AMA for outpatient facility Hospital Course Date of Admission: Jul 16, 2019 at 12:24 Admission Diagnosis : Family Physician/Provider: Rehan Flanagan Date of Discharge: 07/20/19 Discharge Diagnosis: [ ] Hospital Course: [ ] Labs and Pending Lab Test: Home Meds Active Reported Proventil Hfa (Albuterol Sulfate) 6.7 Gm Hfa.aer.ad 2 Puff INH QID PRN Protonix (Pantoprazole Sodium) 40 Mg Tablet.dr 40 Mg PO DAILY LAST FILLED #30 04-14-19 Advair 250-50 Diskus (Fluticasone/Salmeterol) 1 Each Blst.w.dev 1 Puff IH BID LAST FILLED #60 05-20-19 Amlodipine Besylate 10 Mg Tablet 10 Mg PO DAILY LAST FILLED #30 04-29-19 Patient Allergies: Coded Allergies: buspirone (Unverified Adverse Reaction, Severe, CAUSED SEIZURES, 03/17/19) Height (Feet): 5 Height (Inches): 9.00 Weight (Pounds): 205 Weight (Ounces): 2.0 Home Health Need/Face to Face Clinical Findings: Generalized weakness and fatigue I have seen Pt [id number]: Yes Discharged To: Other (AMA) Diagnosis/Conditions: Alcohol abuse Alcohol withdrawal pseudoseizures Problems/Diagnosis/Condition: (1) Seizure-like activity (2) Alcohol abuse (3) Anxiety disorder (4) Bipolar disorder AMA Homebound Status Due to the above stated illness, injury or surgical procedure (medical condition or diagnosis) and associated clinical findings, the patient is homebound because of his/her inability to leave home except with aid of a supportive device and/or person AND leaving the home requires a considerable and taxing effort or is medically contraindicated. Home Health Infusion Therapy Line Start Date: Jul 17, 2019 Certify Stmt I certify that this patient is under my care and that I, a nurse practitioner or a physician; a assistant dean of students working with me, had a face to face encounter that - meets the physician face to face encounter requirements with this patient as dated. Discharge Physical Exam General: Alert, Oriented X3 Lungs: Clear to Auscultation Heart: Regular Rate, Normal S1, Normal S2, No Murmurs Abdomen: Normal Bowel Sounds, Other (lower abdominal tenderness) YONNY AREVALO DO 07/20/19 2106: Discharge Summary Patient Allergies: Coded Allergies: buspirone (Unverified Adverse Reaction, Severe, CAUSED SEIZURES, 03/17/19) [facility] [employer] STUDENT Jul 20, 2019 10:32 YONNY AREVALO DO Jul 20, 2019 21:06
--- NOTE | 2019-07-20 21:12 | Discharge Summary ---
Discharge Summary Hospital Course Was the Problem List Reviewed?: Yes Problems/Dx: (1) Left against medical advice (2) Pseudoseizures (3) Anxiety disorder Status: Chronic Qualifiers: Qualified Codes: F41.1 - Generalized anxiety disorder (4) Bipolar disorder Status: Chronic (5) Non-compliance with treatment Status: Chronic (6) Hematemesis Status: Chronic Qualifiers: Qualified Codes: K92.0 - Hematemesis Hospital Course Date of Admission: Jul 16, 2019 at 12:24 Admission Diagnosis : Family Physician/Provider: Rehan Flanagan Date of Discharge: 07/20/19 Discharge Diagnosis: ETOH withdrawal, pseudoseizures, left AMA Hospital Course: Hospital Course: Pt had a lengthy hospital course for four days but he left against medical advice Saturday on 07/20/19 and he will need close follow up at [facility] but alcohol rehab is obviously not something that he is willing to do and poor prognosis persists due to mental illness and alcoholism. Labs and Pending Lab Test: Home Meds Active Reported Proventil Hfa (Albuterol Sulfate) 6.7 Gm Hfa.aer.ad 2 Puff INH QID PRN Protonix (Pantoprazole Sodium) 40 Mg Tablet.dr 40 Mg PO DAILY LAST FILLED #30 04-14-19 Advair 250-50 Diskus (Fluticasone/Salmeterol) 1 Each Blst.w.dev 1 Puff IH BID LAST FILLED #60 05-20-19 Amlodipine Besylate 10 Mg Tablet 10 Mg PO DAILY LAST FILLED #30 04-29-19 Assessment/Pt Instructions Left AMA Discharge Planning: <30 minutes discharge planning Discharge Instructions Discharge Diet: No Restrictions Pneumonia Vaccine Order Indica: Yes Discharge Physical Examination Vital Signs Vital Signs Date Time Temp Pulse Resp B/P (MAP) Pulse Ox O2 Delivery O2 Flow Rate FiO2 07/20/19 10:25 36.8 60 16 129/75 99 Room Air General Appearance: No Apparent Distress, WD/WN Allergies: Coded Allergies: buspirone (Unverified Adverse Reaction, Severe, CAUSED SEIZURES, 03/17/19) Discharge Summary Date of Admission Jul 16, 2019 at 12:24 Date of Discharge Jul 20, 2019 at 09:30 Discharge Diagnosis Assessment: ETOH withdrawal Seizure-like activity Mental illness Hematemesis Plan: Ativan Monitor closely (1) Alcohol withdrawal seizure Status: Acute Qualifiers: Qualified Codes: F10.230 - Alcohol dependence with withdrawal, uncomplicated (2) Anxiety disorder Status: Chronic Qualifiers: Qualified Codes: F41.1 - Generalized anxiety disorder (3) Bipolar disorder Status: Chronic (4) Non-compliance with treatment Status: Chronic (5) Hematemesis Status: Chronic Qualifiers: Qualified Codes: K92.0 - Hematemesis Clinical Quality Measures DVT/VTE Risk/Contraindication: Risk Factor Score Per Nursin RFS Level Per Nursing on Admit: 1=Low/No VTE PPX YONNY AREVALO DO Jul 20, 2019 21:12
== END 2019-07-20 09:30 | disposition left against medical advice (07) ==
LOC: EDUNIT# 11:15 → ER 11:17 → ICU 12:24 → UNDOADMOB 12:24 → ICU 13:20 → 4TH 07-17 10:15 → ICU 07-17 10:15 → UNDODISOB 07-20 09:30
PROVIDERS: ADMIT Family Medicine; ATTEND Internal Medicine
DX: R56.9 Unspecified convulsions (principal); F41.9 Anxiety disorder, unspecified; F31.9 Bipolar disorder, unspecified; J43.9 Emphysema, unspecified; K92.0 Hematemesis; F10.230 Alcohol dependence with withdrawal, uncomplicated; F17.220 Nicotine dependence, chewing tobacco, uncomplicated; Z79.899 Other long term (current) drug therapy; Z88.8 Allergy status to other drugs, medicaments and biological substances; Z53.21 Procedure and treatment not carried out due to patient leaving prior to being seen by health care provider; Z82.49 Family history of ischemic heart disease and other diseases of the circulatory system
CPT/HCPCS: 36415; 71045; 80053; 80306; 80320; 81000; 83690; 84484; 85025; 85610; 85730; 86703; 93005; 94640; 94760

== ENCOUNTER 2019-08-05 20:20 | Emergency (ER) | payer OTHER ==
[~2019-08-05] VITALS: Ht 177.8 cm; Wt 87.6 kg
[~2019-08-05 20:20] MED LIST changes: +ALBU6.7H8 INH; +PANT40TA2 PO
--- NOTE | 2019-08-05 20:26 | ED General ---
General Stated Complaint: SEIZURE Source of Information: Patient Exam Limitations: No Limitations History of Present Illness Date Seen by Provider: Aug 05, 2019 Time Seen by Provider: 20:24 Initial Comments To ER by EMS with reports of being found unresponsive in an alleyway with seizure-like activity. He has a history of seizures and states that he formerly took Ativan for this. He is well-known to the emergency room here, has recently been admitted for detox, also has been using alcohol again. Timing/Duration: 1-2 Days Severity: Moderate Associated Systoms: Denies Symptoms Allergies and Home Medications Allergies Coded Allergies: buspirone (Unverified Adverse Reaction, Severe, CAUSED SEIZURES, 03/17/19) Home Medications Albuterol Sulfate 6.7 Gm Hfa.aer.ad, 2 PUFF INH QID PRN for SHORTNESS OF BREATH, (Reported) Amlodipine Besylate 10 Mg Tablet, 10 MG PO DAILY, (Reported) LAST FILLED #30 04-29-19 Fluticasone/Salmeterol 1 Each Blst.w.dev, 1 PUFF IH BID, (Reported) LAST FILLED #60 05-20-19 Pantoprazole Sodium 40 Mg Tablet.dr, 40 MG PO DAILY, (Reported) LAST FILLED #30 04-14-19 Patient Home Medication List Home Medication List Reviewed: Yes Review of Systems Review of Systems Constitutional: see HPI EENTM: see HPI Respiratory: no symptoms reported Cardiovascular: no symptoms reported Genitourinary: no symptoms reported Musculoskeletal: no symptoms reported Skin: no symptoms reported Psychiatric/Neurological: No Symptoms Reported Hematologic/Lymphatic: No Symptoms Reported Immunological/Allergic: no symptoms reported Past Kuuqdrc-Fhlooh-Gkuukr Hx Patient Social History Alcohol Beverage of Choice: Beer Drug of Choice: COCAINE Type Used: Cigarettes, Smokeless Tobacco Former Smoker, Quit: Mar 17, 2017 2nd Hand Smoke Exposure: Yes Recent Foreign Travel: No Contact w/Someone Who Travel: No Recent Hopitalizations: No Immunizations Up To Date Tetanus Booster (TDap): More than 5yrs PED Vaccines UTD: No Date of Pneumonia Vaccine: Jul 26, 2014 Date of Influenza Vaccine: Jun 14, 2010 Seasonal Allergies Seasonal Allergies: Yes Past Medical History Surgeries: No Respiratory: Yes COPD, Emphysema Cardiac: Yes Hypertension Neurological: Yes (NONE IN LAST 5YRS) Seizure Disorder Reproductive Disorders: No Sexually Transmitted Disease: No HIV/AIDS: No Genitourinary: No Gastrointestinal: Yes (VOMITTING) Gastroesophageal Reflux Musculoskeletal: No Endocrine: No HEENT: No Loss of Vision: Denies Hearing Impairment: Denies Cancer: No Psychosocial: Yes (MILD ANXIETY) Sleep Difficulties, Anxiety, Suicide Attempts, Depression Integumentary: No Blood Disorders: No Adverse Reaction/Blood Tranf: No (N/A) Family Medical History Congestive heart failure 03 FATHER History of - disorder 03 MOTHER (SPINAL TUMORS) Myocardial infarction 03 FATHER Seizure disorder 09 BROTHER Heart Disease, Cancer, CAD Under 55 Years Old, CAD Over 55 Years Old, COPD, Diabetes, Hypertension, Renal Disease, Other Conditions/Hx Physical Exam Vital Signs Vital Signs - First Documented 08/05/19 20:21 Temp 37.1 Pulse 102 Resp 18 B/P (MAP) 107/75 (86) Capillary Refill : Height, Weight, BMI Height: 5'9.00" Weight: 205lbs. 2.0oz. 93.765897fn; 27.00 BMI Method:Stated General Appearance: No Apparent Distress, WD/WN Eyes: Bilateral Eye Normal Inspection, Bilateral Eye PERRL, Bilateral Eye EOMI HEENT: PERRL/EOMI, TMs Normal Neck: Full Range of Motion, Normal Inspection Respiratory: No Accessory Muscle Use, No Respiratory Distress Cardiovascular: Regular Rate, Rhythm, Normal Peripheral Pulses Gastrointestinal: Normal Bowel Sounds, Non Tender, Soft Extremity: Normal Capillary Refill, Normal Inspection Neurologic/Psychiatric: Alert, Oriented x3 Skin: Normal Color, Warm/Dry Comments Alert and oriented GCS 15 small abrasion to the right side of the forehead. Conversation is appropriate. Progress/Results/Core Measures Suspected Sepsis SIRS Temperature: Pulse: Respiratory Rate: Laboratory Tests 08/05/19 20:25: White Blood Count 8.4 Blood Pressure / Mean: Laboratory Tests 08/05/19 20:25: Creatinine 1.12, Platelet Count 310, Total Bilirubin 0.4 Results/Orders Lab Results Laboratory Tests Test 08/05/19 20:25 Range/Units White Blood Count 8.4 4.3-11.0 10^3/uL Red Blood Count 4.88 4.35-5.85 10^6/uL Hemoglobin 16.1 13.3-17.7 G/DL Hematocrit 47 40-54 % Mean Corpuscular Volume 96 80-99 FL Mean Corpuscular Hemoglobin 33 25-34 PG Mean Corpuscular Hemoglobin Concent 34 32-36 G/DL Red Cell Distribution Width 12.7 10.0-14.5 % Platelet Count 310 130-400 10^3/uL Mean Platelet Volume 9.4 7.4-10.4 FL Neutrophils (%) (Auto) 67 42-75 % Lymphocytes (%) (Auto) 19 12-44 % Monocytes (%) (Auto) 12 0-12 % Eosinophils (%) (Auto) 0 0-10 % Basophils (%) (Auto) 2 0-10 % Neutrophils # (Auto) 5.6 1.8-7.8 X 10^3 Lymphocytes # (Auto) 1.6 1.0-4.0 X 10^3 Monocytes # (Auto) 1.0 0.0-1.0 X 10^3 Eosinophils # (Auto) 0.0 0.0-0.3 10^3/uL Basophils # (Auto) 0.1 0.0-0.1 10^3/uL Sodium Level 141 135-145 MMOL/L Potassium Level 4.4 3.6-5.0 MMOL/L Chloride Level 103 98-107 MMOL/L Carbon Dioxide Level 15 L 21-32 MMOL/L Anion Gap 23 H 5-14 MMOL/L Blood Urea Nitrogen 13 7-18 MG/DL Creatinine 1.12 0.60-1.30 MG/DL Estimat Glomerular Filtration Rate > 60 BUN/Creatinine Ratio 12 Glucose Level 94 70-105 MG/DL Calcium Level 9.6 8.5-10.1 MG/DL Corrected Calcium 8.5-10.1 MG/DL Total Bilirubin 0.4 0.1-1.0 MG/DL Aspartate Amino Transf (AST/SGOT) 29 5-34 U/L Alanine Aminotransferase (ALT/SGPT) 22 0-55 U/L Alkaline Phosphatase 70 40-136 U/L Total Protein 7.7 6.4-8.2 GM/DL Albumin 4.7 H 3.2-4.5 GM/DL Serum Alcohol 53 H <10 MG/DL My Orders Orders - SIA BLANKENSHIP ELECTRIC MOTOR MECHANIC Cbc With Automated Diff (08/05/19 20:23) Comprehensive Metabolic Panel (08/05/19 20:23) Alcohol (08/05/19 20:23) Ct Head Wo (08/05/19 20:23) Diazepam Tablet (Valium Tablet) (08/05/19 21:15) Vital Signs/I&O 08/05/19 20:21 Temp 37.1 Pulse 102 Resp 18 B/P (MAP) 107/75 (86) Capillary Refill : Departure Communication (Admissions) During each of his previous for admissions for alcohol abuse he's left AGAINST MEDICAL ADVICE. 324 L my thoughts are manipulated and drink something is trying to vomit and is unable patient would like to be admitted overnight, his mother was on the phone and states she would like him to be admitted overnight for his history of hematemesis and alcoholism. The hematemesis has been ongoing for several weeks despite this his hemoglobin is stable. He is alert oriented walking talking and making sense. His conversation is appropriate. Discussed with mother I do not really have an indication to admit him, she advises that I should call [facility] and have him arrested taken to senior living to be held until a court ordered treatment can be arranged tomorrow. I spoke with Dr. Johnson, she agrees there is no indication for admission here. There are several social issues at play, patient can go home for outpatient treatment. 2054 I've also spoken with Ofc. Schneider from [employer], he will make contact with addiction treatment Center to see if they can arrange outpatient therapy for him tomorrow.- Impression Primary Impression: Alcoholism Disposition: 01 HOME, SELF-CARE Condition: Stable Departure-Patient Inst. Decision time for Depature: 21:08 Referrals: [facility] (PCP) Primary Care Physician YFN LU (Family) Primary Care Physician Patient Instructions: Alcohol Abuse and Alcoholism (DC) Add. Discharge Instructions: 1. Call [facility] tomorrow to discuss outpatient treatment with Dr. Robin. Return to ER for any concerns. SIA BLANKENSHIP APRN Aug 05, 2019 20:26
[2019-08-05 20:33] LABS: BASOPHILS # (AUTO) 0.1 10^3/uL (0.0-0.1); BASOPHILS % (AUTO) 2 % (0-10); EOSINOPHILS % (AUTO) 0 % (0-10); HEMATOCRIT 47 % (40-54); HEMOGLOBIN 16.1 G/DL (13.3-17.7); LYMPHOCYTES # (AUTO) 1.6 X 10^3 (1.0-4.0); LYMPHOCYTES % (AUTO) 19 % (12-44); MEAN CORPUSCULAR HEMOGLOBIN 33 PG (25-34); MEAN CORPUSCULAR HGB CONC 34 G/DL (32-36); MEAN CORPUSCULAR VOLUME 96 FL (80-99); MEAN PLATELET VOLUME 9.4 FL (7.4-10.4); MONOCYTES % (AUTO) 12 % (0-12); NEUTROPHILS # (AUTO) 5.6 X 10^3 (1.8-7.8); NEUTROPHILS % (AUTO) 67 % (42-75); PLATELET COUNT 310 10^3/uL (130-400); RED CELL DISTRIBUTION WIDTH 12.7 % (10.0-14.5); WHITE BLOOD COUNT 8.4 10^3/uL (4.3-11.0)
--- NOTE | 2019-08-05 20:55 | Diagnostic Imaging Report ---
Clinical data: Patient suffered seizing episode this p.m. with fall injury onto head. Patient has history of seizures. Exam: Axial CT scan of the brain performed without IV contrast. Comparison: Head CT without contrast dated 01/25/2014. Findings: There is no evidence of acute cerebral infarct, intracranial hemorrhage or gross mass effect. The brain parenchymal volume appears appropriate for patient's age. There is normal emanuel-white matter distinction. There is no significant midline shift or herniation. There is no evidence of hydrocephalus. The basal cisterns are unremarkable. The skull, extracranial soft tissue and orbits are unremarkable. The paranasal sinuses are unremarkable. Temporal bones show no significant abnormality. Impression: Unremarkable CT scan of the brain with no evidence of acute intracranial process. There is no intracranial hemorrhage or skull fracture. Dictated by: Dictated on workstation # [id number]
[2019-08-05 21:01] LABS: ALANINE AMINOTRANSFERASE 22 U/L (0-55); ALBUMIN 4.7 GM/DL (3.2-4.5); ALKALINE PHOSPHATASE 70 U/L (40-136); BILIRUBIN,TOTAL 0.4 MG/DL (0.1-1.0); BUN/CREATININE RATIO 12; CALCIUM 9.6 MG/DL (8.5-10.1); CARBON DIOXIDE 15 MMOL/L (21-32); CHLORIDE 103 MMOL/L (98-107); CREATININE SERUM 1.12 MG/DL (0.60-1.30); GFR ESTIMATED > 60; GLUCOSE 94 MG/DL (70-105); POTASSIUM 4.4 MMOL/L (3.6-5.0); SODIUM 141 MMOL/L (135-145); TOTAL PROTEIN 7.7 GM/DL (6.4-8.2)
[2019-08-05 21:13] VITALS: BP 105/72
[2019-08-05] MEDS ORDERED: DIAZEPAM 5 MG (VALIUM) TABLET PO ONE (21:15)
== END 2019-08-05 21:14 | disposition home or self-care (01) ==
LOC: EDUNIT# 20:20 → ER 20:21
DX: F10.20 Alcohol dependence, uncomplicated (principal); I10 Essential (primary) hypertension; J43.9 Emphysema, unspecified; G40.909 Epilepsy, unspecified, not intractable, without status epilepticus; K21.9 Gastro-esophageal reflux disease without esophagitis; F41.9 Anxiety disorder, unspecified; F32.9 Major depressive disorder, single episode, unspecified; Z91.5 Personal history of self-harm; Z88.8 Allergy status to other drugs, medicaments and biological substances; Z79.51 Long term (current) use of inhaled steroids; Z87.891 Personal history of nicotine dependence; Z82.49 Family history of ischemic heart disease and other diseases of the circulatory system
CPT/HCPCS: 36415; 70450; 80053; 80320; 85025

== ENCOUNTER 2019-08-07 21:56 | Inpatient (IN) | payer OTHER ==
[~2019-08-07] VITALS: Ht 177.8 cm; Wt 81.0 kg
[2019-08-07] MEDS ORDERED: ONDANSETRON 4 MG/2 ML (SDV) Z0FRAN ONE (22:12)
[2019-08-07] MEDS ORDERED: FAMOTIDINE 20MG/2ML IV (PEPCID) ONE (22:13)
[2019-08-07] MEDS ORDERED: ONDANSETRON 4 MG/2 ML (SDV) Z0FRAN IVP ONE (22:15)
[2019-08-07] MEDS ORDERED: FAMOTIDINE 20MG/2ML IV (PEPCID) IVP ONE (22:15)
--- NOTE | 2019-08-07 22:16 | NUR ---
PT CONTINUALLY REMOVES HIS C COLLAR DESPITE PROMPTS FROM ED STAFF TO LEAVE THE COLLAR IN PLACE.
[2019-08-07 22:17] LABS: BASOPHILS # (AUTO) 0.2 10^3/uL (0.0-0.1); BASOPHILS % (AUTO) 1 % (0-10); EOSINOPHILS # (AUTO) 0.1 10^3/uL (0.0-0.3); EOSINOPHILS % (AUTO) 1 % (0-10); HEMATOCRIT 45 % (40-54); HEMOGLOBIN 15.8 G/DL (13.3-17.7); LYMPHOCYTES # (AUTO) 2.8 X 10^3 (1.0-4.0); LYMPHOCYTES % (AUTO) 24 % (12-44); MEAN CORPUSCULAR HEMOGLOBIN 33 PG (25-34); MEAN CORPUSCULAR HGB CONC 35 G/DL (32-36); MEAN CORPUSCULAR VOLUME 95 FL (80-99); MEAN PLATELET VOLUME 9.7 FL (7.4-10.4); MONOCYTES # (AUTO) 1.7 X 10^3 (0.0-1.0); MONOCYTES % (AUTO) 15 % (0-12); NEUTROPHILS # (AUTO) 6.9 X 10^3 (1.8-7.8); NEUTROPHILS % (AUTO) 59 % (42-75); PLATELET COUNT 320 10^3/uL (130-400); RED CELL DISTRIBUTION WIDTH 12.6 % (10.0-14.5); WHITE BLOOD COUNT 11.7 10^3/uL (4.3-11.0)
[2019-08-07 22:30] LABS: ALANINE AMINOTRANSFERASE 20 U/L (0-55); ALBUMIN 4.6 GM/DL (3.2-4.5); ALKALINE PHOSPHATASE 76 U/L (40-136); BILIRUBIN,TOTAL 0.2 MG/DL (0.1-1.0); BUN/CREATININE RATIO 5; CALCIUM 9.5 MG/DL (8.5-10.1); CARBON DIOXIDE 17 MMOL/L (21-32); CHLORIDE 103 MMOL/L (98-107); CREATININE SERUM 0.92 MG/DL (0.60-1.30); GFR ESTIMATED > 60; GLUCOSE 86 MG/DL (70-105); MAGNESIUM 2.2 MG/DL (1.6-2.4); POTASSIUM 3.4 MMOL/L (3.6-5.0); SODIUM 140 MMOL/L (135-145); TOTAL PROTEIN 7.4 GM/DL (6.4-8.2)
[2019-08-07 22:31] LABS: BILIRUBIN,URINE NEGATIVE (NEGATIVE); CLARITY,URINE CLEAR; COLOR,URINE YELLOW; GLUCOSE, URINE (UA) NEGATIVE (NEGATIVE); KETONES,URINE NEGATIVE (NEGATIVE); LEUKOCYTE ESTERASE ,URINE NEGATIVE (NEGATIVE); NITRITE,URINE NEGATIVE (NEGATIVE); PH,URINE 6 (5-9); PROTEIN,URINE NEGATIVE (NEGATIVE)
[2019-08-07 22:38] LABS: BACTERIA,URINE NEGATIVE /HPF
[2019-08-07 22:49] LABS: AMPHETAMINE SCREEN, URINE NEGATIVE (NEGATIVE); BARBITURATE SCREEN URINE NEGATIVE (NEGATIVE); BENZODIAZEPINES SCREEN URINE NEGATIVE (NEGATIVE); CANNABINOID SCREEN, URINE NEGATIVE (NEGATIVE); COCAINE SCREEN URINE NEGATIVE (NEGATIVE); METHADONE STAT NEGATIVE (NEGATIVE); METHAMPHETAMINE SCREEN URINE S NEGATIVE (NEGATIVE); OPIATE SCREEN URINE NEGATIVE (NEGATIVE); OXYCODONE STAT NEGATIVE (NEGATIVE); PROPOXYPHENE STAT NEGATIVE (NEGATIVE); TRICYCLIC ANTIDEPRESSANTS SCRE NEGATIVE (NEGATIVE)
[2019-08-07] MEDS ORDERED: DEXTROSE 50% 50 ML (IMS) SYR ONE (22:58)
[2019-08-07] MEDS ORDERED: DEXTROSE 50% 50 ML (IMS) SYR IV ONE (23:00)
[2019-08-07] MEDS ORDERED: RT-ALBUTEROL/IPRATROPIUM 3 ML (DUONEB) VIAL INH ONE (23:30)
--- NOTE | 2019-08-07 23:38 | ED Psychosocial ---
General Stated Complaint: AMS Source: patient, EMS, old records Exam Limitations: intoxication History of Present Illness Date Seen by Provider: Aug 07, 2019 Time Seen by Provider: 21:57 Initial Comments This 39-year-old man is brought to the emergency room via EMS after he showed up on invited acquaintances home. They let him into the house and then he fell face forward without breaking his fall. EMS was contacted and he was brought to the emergency room. He has history of alcohol abuse and is obviously intoxicated. It was reported that he drank at least 10 beers today. Patient denied any head or neck pain for EMS. A c-collar was not applied prior to arrival. Patient did complain of some tenderness of the neck during my asse ssment. C-collar was placed. EMS reports patient has not eaten all day. Blood sugars were in the 60s and 70s per EMS. They administered oral glucose which brought her blood sugar up to the 80s. Patient reportedly has history of seizures that tend to occur more often when he drinks alcohol. Allergies and Home Medications Allergies Coded Allergies: buspirone (Unverified Adverse Reaction, Severe, CAUSED SEIZURES, 03/17/19) Home Medications Albuterol Sulfate 6.7 Gm Hfa.aer.ad, 2 PUFF INH QID PRN for SHORTNESS OF BREATH, (Reported) Amlodipine Besylate 10 Mg Tablet, 10 MG PO DAILY, (Reported) LAST FILLED #30 19 Fluticasone/Salmeterol 1 Each Blst.w.dev, 1 PUFF IH BID, (Reported) LAST FILLED #60 19 Pantoprazole Sodium 40 Mg Tablet.dr, 40 MG PO DAILY, (Reported) LAST FILLED #30 19 Patient Home Medication List Home Medication List Reviewed: Yes Review of Systems Constitutional: see HPI EENTM: no symptoms reported Respiratory: no symptoms reported Cardiovascular: no symptoms reported Gastrointestinal: no symptoms reported Genitourinary: no symptoms reported Musculoskeletal: no symptoms reported Skin: no symptoms reported Psychiatric/Neurological: See HPI Past Zlvmsnc-Oqwtbg-Clseyi Hx Past Med/Social Hx: Reviewed and Corrections made Patient Social History Alcohol Use: Regular Use Alcohol Beverage of Choice: Beer Drug of Choice: HX COCAINE Type Used: Cigarettes, Smokeless Tobacco Former Smoker, Quit: Mar 17, 2017 2nd Hand Smoke Exposure: Yes Recent Foreign Travel: No Contact w/Someone Who Travel: No Recent Hopitalizations: No Immunizations Up To Date Tetanus Booster (TDap): More than 5yrs PED Vaccines UTD: No Date of Pneumonia Vaccine: Jul 26, 2014 Date of Influenza Vaccine: Jun 14, 2010 Seasonal Allergies Seasonal Allergies: Yes Past Medical History Surgeries: No Respiratory: Yes COPD, Emphysema Cardiac: Yes Hypertension Neurological: Yes Seizure Disorder Reproductive Disorders: No Sexually Transmitted Disease: No HIV/AIDS: No Genitourinary: No Gastrointestinal: Yes (VOMITTING) Gastroesophageal Reflux Musculoskeletal: No Endocrine: No HEENT: No Loss of Vision: Denies Hearing Impairment: Denies Cancer: No Psychosocial: Yes (MILD ANXIETY) Sleep Difficulties, Anxiety, Suicide Attempts, Depression Integumentary: No Blood Disorders: No Adverse Reaction/Blood Tranf: No (N/A) Family Medical History Reviewed Nursing Family Hx Congestive heart failure 03 FATHER History of - disorder 03 MOTHER (SPINAL TUMORS) Myocardial infarction 03 FATHER Seizure disorder 09 BROTHER Heart Disease, Cancer, CAD Under 55 Years Old, CAD Over 55 Years Old, COPD, Diabetes, Hypertension, Renal Disease, Other Conditions/Hx Physical Exam Vital Signs - First Documented 08/07/19 22:00 Temp 35.8 Pulse 108 Resp 20 B/P (MAP) 122/78 (93) Pulse Ox 95 O2 Delivery Room Air Capillary Refill : Height, Weight, BMI Height: 5'9.00" Weight: 205lbs. 2.0oz. [id number]; 27.00 BMI Method:Stated General Appearance: WD/WN, other (intoxicated) HEENT: PERRL/EOMI, normal ENT inspection, pharynx normal Neck: normal inspection, tender midline Respiratory: lungs clear, normal breath sounds, no respiratory distress, no accessory muscle use, other (prolonged expiratory phase) Cardiovascular: regular rate, rhythm, no edema, no murmur Gastrointestinal: normal bowel sounds, non tender, soft Extremities: normal inspection, no pedal edema Neurologic/Psychiatric: bus monitor II-XII nml as tested, no motor/sensory deficits, disoriented x 3 (initially), other (intoxicated, decreased level of alertness, improving during the course of the ER stay) Appearance/Memory: disheveled Behavior/Eye Contact: cooperative, good eye contact Skin: normal color, warm/dry Progress/Results/Core Measures Results/Orders Lab Results Laboratory Tests Test 08/07/19 22:00 08/07/19 22:28 08/07/19 22:57 08/07/19 23:37 Range/Units White Blood Count 11.7 H 4.3-11.0 10^3/uL Red Blood Count 4.79 4.35-5.85 10^6/uL Hemoglobin 15.8 13.3-17.7 G/DL Hematocrit 45 40-54 % Mean Corpuscular Volume 95 80-99 FL Mean Corpuscular Hemoglobin 33 25-34 PG Mean Corpuscular Hemoglobin Concent 35 32-36 G/DL Red Cell Distribution Width 12.6 10.0-14.5 % Platelet Count 320 130-400 10^3/uL Mean Platelet Volume 9.7 7.4-10.4 FL Neutrophils (%) (Auto) 59 42-75 % Lymphocytes (%) (Auto) 24 12-44 % Monocytes (%) (Auto) 15 H 0-12 % Eosinophils (%) (Auto) 1 0-10 % Basophils (%) (Auto) 1 0-10 % Neutrophils # (Auto) 6.9 1.8-7.8 X 10^3 Lymphocytes # (Auto) 2.8 1.0-4.0 X 10^3 Monocytes # (Auto) 1.7 H 0.0-1.0 X 10^3 Eosinophils # (Auto) 0.1 0.0-0.3 10^3/uL Basophils # (Auto) 0.2 H 0.0-0.1 10^3/uL Sodium Level 140 135-145 MMOL/L Potassium Level 3.4 L 3.6-5.0 MMOL/L Chloride Level 103 98-107 MMOL/L Carbon Dioxide Level 17 L 21-32 MMOL/L Anion Gap 20 H 5-14 MMOL/L Blood Urea Nitrogen 5 L 7-18 MG/DL Creatinine 0.92 0.60-1.30 MG/DL Estimat Glomerular Filtration Rate > 60 BUN/Creatinine Ratio 5 Glucose Level 86 70-105 MG/DL Calcium Level 9.5 8.5-10.1 MG/DL Corrected Calcium 8.5-10.1 MG/DL Magnesium Level 2.2 1.6-2.4 MG/DL Total Bilirubin 0.2 0.1-1.0 MG/DL Aspartate Amino Transf (AST/SGOT) 26 5-34 U/L Alanine Aminotransferase (ALT/SGPT) 20 0-55 U/L Alkaline Phosphatase 76 40-136 U/L C-Reactive Protein High Sensitivity 0.07 0.00-0.50 MG/DL Total Protein 7.4 6.4-8.2 GM/DL Albumin 4.6 H 3.2-4.5 GM/DL Serum Alcohol 338 *H <10 MG/DL Urine Color YELLOW Urine Clarity CLEAR Urine pH 6 5-9 Urine Specific [place] 1.010 L 1.016-1.022 Urine Protein NEGATIVE NEGATIVE Urine Glucose (UA) NEGATIVE NEGATIVE Urine Ketones NEGATIVE NEGATIVE Urine Nitrite NEGATIVE NEGATIVE Urine Bilirubin NEGATIVE NEGATIVE Urine Urobilinogen NORMAL NORMAL MG/DL Urine Leukocyte Esterase NEGATIVE NEGATIVE Urine RBC (Auto) NEGATIVE NEGATIVE Urine RBC NONE /HPF Urine WBC NONE /HPF Urine Crystals NONE /LPF Urine Bacteria NEGATIVE /HPF Urine Casts NONE /LPF Urine Mucus NEGATIVE /LPF Urine Culture Indicated NO Urine Opiates Screen NEGATIVE NEGATIVE Urine Oxycodone Screen NEGATIVE NEGATIVE Urine Methadone Screen NEGATIVE NEGATIVE Urine Propoxyphene Screen NEGATIVE NEGATIVE Urine Barbiturates Screen NEGATIVE NEGATIVE Ur Tricyclic Antidepressants Screen NEGATIVE NEGATIVE Urine Phencyclidine Screen NEGATIVE NEGATIVE Urine Amphetamines Screen NEGATIVE NEGATIVE Urine Methamphetamines Screen NEGATIVE NEGATIVE Urine Benzodiazepines Screen NEGATIVE NEGATIVE Urine Cocaine Screen NEGATIVE NEGATIVE Urine Cannabinoids Screen NEGATIVE NEGATIVE Glucometer 55 *L 47 *L 70-110 MG/DL Test 08/08/19 00:16 08/08/19 00:42 Range/Units Glucometer 92 86 70-110 MG/DL My Orders Orders - LAZARA SHIN MD Alcohol (08/07/19 22:08) Cbc With Automated Diff (08/07/19 22:08) Comprehensive Metabolic Panel (08/07/19 22:08) Hs C Reactive Protein (08/07/19 22:08) Drug Screen Stat (Urine) (08/07/19 22:08) Magnesium (08/07/19 22:08) Ua Culture If Indicated (08/07/19 22:08) Chest 1 View, Ap/Pa Only (08/07/19 22:08) Ondansetron Injection (Zofran Injectio (08/07/19 22:15) Famotidine Injection (Pepcid Injection) (08/07/19 22:15) Ondansetron Injection (Zofran Injectio (08/07/19 22:12) Famotidine Injection (Pepcid Injection) (08/07/19 22:13) Ct Head/Cervical Spine Wo (08/07/19 22:18) D50w (Emergency) Syringe (Dextrose 50% 5 (08/07/19 23:00) D50w (Emergency) Syringe (Dextrose 50% 5 (08/07/19 22:58) Accucheck Stat ONCE (08/07/19 23:19) Accucheck Stat ONCE (08/07/19 23:19) Accucheck Stat ONCE (08/07/19 23:19) Albuterol/Ipra Inhalation Soln (Duoneb I (08/07/19 23:30) Svn Small Volume Nebulizer (08/07/19 23:23) Dextrose 10% Iv Solution (D10w 1000 Ml I (08/07/19 23:45) Accucheck Stat ONCE (08/08/19 00:00) Accucheck Stat ONCE (08/08/19 00:00) General/Regular (08/08/19 Breakfast) Accucheck Stat ONCE (08/08/19 00:38) Accucheck Stat ONCE (08/08/19 00:38) Accucheck Stat ONCE (08/08/19 00:38) Nicotine Patch (Nicoderm Patch) (08/08/19 01:15) Medications Given in ED Current Medications Medications Dose Ordered Sig/Gallito Route Start Time Stop Time Status Last Admin Dose Admin Dextrose 50 ml ONCE ONCE IV 08/07/19 23:00 08/07/19 23:01 DC 08/07/19 23:01 50 ML Dextrose 1,000 ml @ 200 mls/hr Q5H ONCE IV 08/07/19 23:45 08/08/19 04:44 08/07/19 23:48 200 MLS/HR Famotidine 20 mg ONCE ONCE IVP 08/07/19 22:15 08/07/19 22:16 DC 08/07/19 22:19 20 MG Ondansetron HCl 8 mg ONCE ONCE IVP 08/07/19 22:15 08/07/19 22:16 DC 08/07/19 22:19 8 MG Vital Signs/I&O 08/07/19 08/07/19 08/08/19 22:00 23:45 01:45 Temp 35.8 35.8 Pulse 108 87 Resp 20 20 B/P (MAP) 122/78 (93) 104/69 (93) Pulse Ox 95 94 97 O2 Delivery Room Air Room Air Room Air Progress Progress Note : Time: 01:11 Progress Note C-collar was applied during initial assessment. Patient removed his a c-collar. After coaxing, he did allow the c-collar to be replaced. He was then taken to CT for imaging of the head and neck which were both negative. Patient received prophylactics Zofran and Pepcid. Blood sugars were monitored closely as patient had a decrease in alertness. He was found to have multiple consecutive hypoglycemic episodes and was given 2 treatments of D50. Eventually a liter of D10 W was hung at 200 mL per hour. With this therapy patient eventually became alert, conversational, and was begging for food and drink. He was able to drink 2 containers of orange juice and eat a couple of crackers without difficulty. He reported still being hungry after that. Before patient became more alert, I discussed the situation with Dr. Hickman, [facility] physician extension work director. We had discussed potentially needing to intubate this patient with ketamine sedation. However, patient became alert enough that intubation was not necessary. Patient's last 2 blood sugars were normal and he remains alert. This patient appears to have poor glycemic production when intoxicated. I discussed the dangers of continued alcohol use with him. I recommended clinical social worker consultation and rehabilitation services if he is willing. Patient was noted to have some prolonged expiratory phase and slightly increased work of breathing during his ER stay. He was also noted to have cough. Chest x-ray was unremarkable. Breathing improved with a DuoNeb treatment. Patient reports history of emphysema. Nicotine patch was applied at patient's request. Patient admitted to daily alcohol use for the past 20 years. Alcohol withdrawal protocol was added to the admission orders. Diagnostic Imaging Diagonstic Imaging: Xray Plain Films/CT/US/NM/MRI: chest Comments Chest x-ray viewed by me. Report not yet available. No acute abnormalities appreciated. Diagonstic Imaging: CT Plain Films/CT/US/NM/MRI: c-spine, head Comments CT head and C-spine viewed by me. [facility] report reviewed. No acute injuries identified. Departure Communication (Admissions) Time/Spoke to Admitting Phy: 23:52 Dr. Colin Impression Primary Impression: Hypoglycemia Additional Impressions: Alcohol intoxication Qualified Codes: F10.929 - Alcohol use, unspecified with intoxication, unspecified Acute exacerbation of emphysema Disposition: ADMITTED INPATIENT Condition: Improved Admissions Decision to Admit Reason: Admit from ER (General) Decision to Admit/Date: Aug 07, 2019 Time/Decision to Admit Time: 23:40 Departure-Patient Inst. Ref[place]: [facility] [place] Primary Care Physician YFN LU (Family) Primary Care Physician Copy Copies To 1: ASHLYN AGUILAR JOSHUA T MD Aug 07, 2019 23:38
[2019-08-07] MEDS ORDERED: DEXTROSE 10% IV SOLUTION 1,000 ML IV ONE (23:45)
[2019-08-08] VITALS (16 sets, daily range): BP systolic 84–156; BP diastolic 57–103
--- NOTE | 2019-08-08 00:55 | NUR ---
PT IS NOW ALERT AND CONVERSATIONAL, REQUESTING FOOD. DRASTIC IMPROVEMENT IN MENTATION VS PRESENTING MENTAL STATUS
[2019-08-08] MEDS ORDERED: NICOTINE 21 MG (NICODERM) PATCH ONE (01:11)
[2019-08-08] MEDS ORDERED: NICOTINE 21 MG (NICODERM) PATCH TD ONE (01:15)
[2019-08-08] MEDS ORDERED: 1/2 NS IV SOLUTION 1,000 ML IV PRN (01:58)
[2019-08-08] MEDS ORDERED: ONDANSETRON 4 MG/2 ML (SDV) Z0FRAN IV PRN ×2 (02:00)
[2019-08-08] MEDS ORDERED: ANTACID SUSP 30 ML UDC (MYLANTA) PO PRN (02:00)
[2019-08-08] MEDS ORDERED: LORazepam 1 MG (ATIVAN) TAB PO PRN (02:00)
[2019-08-08] MEDS ORDERED: ONDANSETRON 4 MG (ZOFRAN) ORAL DISSOLVE TAB SL PRN (02:00)
[2019-08-08] MEDS ORDERED: LORazepam INJ 2 MG/ML (ATIVAN) VIAL IV PRN (02:00)
[2019-08-08] MEDS ORDERED: LORazepam INJ 2 MG/ML (ATIVAN) VIAL IM/IV PRN (02:00)
[2019-08-08] MEDS ORDERED: SENNA W/DOCUSATE (SENOKOT S) TABLET PO PRN (02:00)
[2019-08-08 03:07] LABS: BASOPHILS # (AUTO) 0.1 10^3/uL (0.0-0.1); BASOPHILS % (AUTO) 2 % (0-10); EOSINOPHILS # (AUTO) 0.1 10^3/uL (0.0-0.3); EOSINOPHILS % (AUTO) 2 % (0-10); HEMATOCRIT 42 % (40-54); HEMOGLOBIN 14.4 G/DL (13.3-17.7); LYMPHOCYTES # (AUTO) 2.7 X 10^3 (1.0-4.0); LYMPHOCYTES % (AUTO) 39 % (12-44); MEAN CORPUSCULAR HEMOGLOBIN 33 PG (25-34); MEAN CORPUSCULAR HGB CONC 34 G/DL (32-36); MEAN CORPUSCULAR VOLUME 96 FL (80-99); MEAN PLATELET VOLUME 9.4 FL (7.4-10.4); MONOCYTES # (AUTO) 0.9 X 10^3 (0.0-1.0); MONOCYTES % (AUTO) 12 % (0-12); NEUTROPHILS # (AUTO) 3.1 X 10^3 (1.8-7.8); NEUTROPHILS % (AUTO) 45 % (42-75); PLATELET COUNT 276 10^3/uL (130-400); RED CELL DISTRIBUTION WIDTH 12.7 % (10.0-14.5)
[2019-08-08 03:30] LABS: BUN/CREATININE RATIO 5; CALCIUM 8.9 MG/DL (8.5-10.1); CARBON DIOXIDE 18 MMOL/L (21-32); CHLORIDE 110 MMOL/L (98-107); CREATININE SERUM 0.82 MG/DL (0.60-1.30); GFR ESTIMATED > 60; GLUCOSE 111 MG/DL (70-105); MAGNESIUM 1.9 MG/DL (1.6-2.4); PHOSPHORUS 3.2 MG/DL (2.3-4.7); POTASSIUM 3.3 MMOL/L (3.6-5.0); SODIUM 144 MMOL/L (135-145)
[2019-08-08] MEDS: POTASSIUM CL 10MEQ/50ML IVPB 50 ML IV SCH ×4 (04:38→07:45)
--- NOTE | 2019-08-08 05:16 | NUR ---
This RN called [facility] to notify of decreased BP with SBP in the 70-90's.
[2019-08-08] MEDS ORDERED: LACTATED RINGERS 1,000 ML IV ONE ×2 (05:45→06:00)
[2019-08-08] MEDS ORDERED: DEXTROSE 10% IV SOLUTION 1,000 ML IV SCH (06:00)
[2019-08-08] MEDS ORDERED: MAGNESIUM 1 GM/100 ML IVPB 100 ML IV SCH (06:00)
[2019-08-08] MEDS ORDERED: KCL 20 MEQ TAB (K-DUR) PO SCH (06:00)
[2019-08-08] MEDS ORDERED: POTASSIUM CL 10MEQ/50ML IVPB 50 ML IV SCH (06:00)
--- NOTE | 2019-08-08 06:19 | Diagnostic Imaging Report ---
EXAMINATION: Portable erect AP chest at 1103 PM INDICATION: Cough The heart size is within normal limits and stable when compared to 07/16/2019. The lungs are clear. There is no evidence of failure, pneumonia or for a pleural effusion. The mediastinum is not widened. The osseous structures are intact. IMPRESSION: There is no evidence for active disease. When compared to the prior study, there has been no significant change. Dictated by: Dictated on workstation # [id number]
--- NOTE | 2019-08-08 06:31 | Diagnostic Imaging Report ---
PROCEDURE: CT head and CT cervical spine without contrast. TECHNIQUE: Multiple contiguous axial images were obtained through the brain and cervical spine without the use of intravenous contrast. Sagittal and coronal reformations through the cervical spine were then performed. Auto Exposure Controls were utilized during the CT exam to meet ALARA standards for radiation dose reduction. INDICATION: Altered mental status. CT OF THE HEAD: This exam is less than optimal due to streak and motion artifact. Additional images were obtained, but these were also less than optimal due to motion and streak artifact. There is no mass, shift to the midline or hemorrhage to suggest an acute intracranial abnormality. The ventricles are not abnormally dilated and similar in size to the prior exam of 08/05/2019. The bone windows show no evidence for skull fracture or for a destructive lesion. The orbits are symmetric and within normal limits. The sinuses are generally clear. IMPRESSION: 1. There is no evidence for an acute intracranial abnormality on this suboptimal exam. 2. If clinical concern regarding an underlying abnormality persists, then repeat CT head exam should be performed if the patient can be safely sedated. CT cervical spine: There are no prior studies available are comparison. The reconstructed parasagittal images show the vertebral body heights and alignment to be generally within normal limits. There is narrowing of the disc spaces at C6-C7 and to lesser degree C5-C6. There is no evidence for high grade central stenosis. There is no fracture or acute bony abnormality identified. There is no sign of retropharyngeal edema. The thyroid gland is generally unremarkable. The lung apices are clear. IMPRESSION: There is no evidence for an acute bony abnormality of the cervical spine. Dictated by: Dictated on workstation # [id number]
[2019-08-08] MEDS ORDERED: MULTIVIT W/MINERALS TAB (THERAGRAN M) PO SCH (07:00)
[2019-08-08] MEDS ORDERED: THIAMINE 100 MG (VITAMIN B-1) TAB PO SCH (07:00)
[2019-08-08] MEDS ORDERED: FAMOTIDINE 20MG/2ML IV (PEPCID) IV SCH (09:00)
[2019-08-08] MEDS ORDERED: MAGNESIUM OXIDE (MAG-OX)400 MG TAB PO SCH (09:00)
[2019-08-08] MEDS ORDERED: FOLIC ACID 1 MG TAB PO SCH (09:00)
--- NOTE | 2019-08-08 09:16 | History & Physical-Hospitalist ---
History of Present Illness HPI/Chief Complaint This 39-year-old man is brought to the emergency room via EMS after he showed up on invited acquaintances home. They let him into the house and then he fell face forward without breaking his fall. EMS was contacted and he was brought to the emergency room. He has history of alcohol abuse and is obviously intoxicated. It was reported that he drank at least 10 beers today. Patient denied any head or neck pain for EMS. A c-collar was not applied prior to arrival. Patient did complain of some tenderness of the neck during my assessment. C-collar was placed. EMS reports patient has not eaten all day. Blood sugars were in the 60s and 70s per EMS. They administered oral glucose which brought her blood sugar up to the 80s. Patient reportedly has history of seizures that tend to occur more often when he drinks alcohol. The patient reports he has no idea how he got to the hospital and didn't remember going to his girlfriend's house. He does recall having little to eat and states that occasionally he has had seizures which began a year or 2 ago when drinking but not in withdrawal although it is been some time since he recalls that he is gone without alcohol. He sees [facility] and they're in the process of trying to get him into a rehabilitation program. He reports no known history of cirrhosis did apparently have a DUI earlier this week. He reports he's vomited up a small amount of bright red blood per rectum but denies melena diarrhea or abdominal pain. He denied headache or neck pain and appeared to be in no acute distress oriented 2 this morning. Date Seen 08/08/19 Time Seen by a Provider: 07:45 Attending Physician Remi Bradley MD PCP [facility] Referring Physician Date of Admission Aug 07, 2019 at 23:59 Home Medications & Allergies Home Medications Reviewed patient Home Medication Reconciliation performed by pharmacy medication reconciliations respiratory care technician and/or nursing. Patients Allergies have been reviewed. Allergies Allergies Coded Allergies buspirone (Unverified Adverse Reaction, Severe, CAUSED SEIZURES, 03/17/19) Past Ysnzsfw-Phwjqe-Meckto Hx Past Med/Social Hx: Reviewed and Corrections made Patient Social History Alcohol Use: Regular Use Number of Drinks Today: AA Alcohol Beverage of Choice: Beer, Whiskey Recreational Drug Use: No Drug of Choice: HX COCAINE Former Smoker, Quit: Mar 17, 2017 Type Used: Cigarettes, Smokeless Tobacco 2nd Hand Smoke Exposure: Yes Recent Foreign Travel: No Contact w/other who traveled: No Recent Hopitalizations: No Recent Infectious Disease Expo: No Immunizations Up To Date Tetanus Booster (TDap): More than 5yrs Pediatric: No Date of Pneumonia Vaccine: Jul 26, 2014 Date of Influenza Vaccine: Jun 15, 2019 Seasonal Allergies Seasonal Allergies: Yes Past Medical History Cardiac: Hypertension Neurological: Seizure Disorder Reproductive: No Sexually Transmitted Disease: No HIV/AIDS: No Gastrointestinal: Gastroesophageal Reflux Loss of Vision: Denies Hearing Impairment: Denies Psychosocial: Sleep Difficulties, Anxiety, Suicide Attempts, Depression History of Blood Disorders: No Adverse Reaction to Blood Vu: No (N/A) Family History Reviewed Nursing Family Hx Congestive heart failure 03 FATHER History of - disorder 03 MOTHER (SPINAL TUMORS) Myocardial infarction 03 FATHER Seizure disorder 09 BROTHER Heart Disease, Cancer, CAD Under 55 Years Old, CAD Over 55 Years Old, COPD, Diabetes, Hypertension, Renal Disease, Other Conditions/Hx Review of Systems Constitutional: no symptoms reported Cardiovascular: No no symptoms reported; see HPI; No chest pain, No edema, No Hx of Intervention, No palpitations, No syncope, No vascular heart diseas, No other Gastrointestinal: see HPI Physical Exam Physical Exam Vital Signs Vital Signs - First Documented 08/07/19 08/08/19 22:00 02:50 Temp 35.8 Pulse 108 Resp 20 B/P (MAP) 122/78 (93) Pulse Ox 95 O2 Delivery Room Air FiO2 21 Capillary Refill : Less Than 3 Seconds Height, Weight, BMI Height: 5'9.00" Weight: 205lbs. 2.0oz. 93.992333be; 25.62 BMI Method:Stated General Appearance: No Apparent Distress, WD/WN Neck: Normal Inspection, Non Tender Respiratory: Chest Non Tender, Lungs Clear, Normal Breath Sounds, No Accessory Muscle Use, No Respiratory Distress Cardiovascular: Regular Rate, Rhythm, No Edema, No Gallop, No JVD, No Murmur, Normal Peripheral Pulses Gastrointestinal: Normal Bowel Sounds, No Organomegaly, No Pulsatile Mass, Non Tender, Soft Extremity: Normal Capillary Refill, Normal Inspection, Normal Range of Motion, Non Tender, No Calf Tenderness, No Pedal Edema Neurologic/Psychiatric: Alert, No Motor/Sensory Deficits, Normal Mood/Affect Results Results/Procedures Labs Laboratory Tests 08/07/19 22:00 08/08/19 02:55 Patient resulted labs reviewed. Assessment/Plan Admission Diagnosis 1. Alcohol use disorder with acute alcohol poisoning detox protocol initiated. 2. Hypoglycemia likely due to number 1 and poor by mouth intake. Discussed with the patient that this was likely due to severe underlying liver disease from his long-standing alcoholism and he very well may have cirrhosis. His quality of life has been reasonable but he was told if he continues to drink he is likely to develop in the near future liver disease with greatly diminished quality of life and quality of life. He states that he will follow-up with [facility] access [facility] and consents to a rehabilitation program. He states he has an appointment this coming week with Stas Flanagan. He is currently maintaining normal blood sugar levels and eating although he is still on D10. We will taper him off of D10 monitor his blood sugars and if stable consider discharge this afternoon. Admission Status: Observation Clinical Quality Measures DVT/VTE Risk/Contraindication: Risk Factor Score Per Nursin RFS Level Per Nursing on Admit: 1=Low/No VTE PPX REMI BRADLEY MD Aug 08, 2019 09:16
--- NOTE | 2019-08-08 11:54 | NUR ---
Pt requesting to be discharge. This nurse updated at 1120 about patients request and on patients blood sugar. Verbal orders received from for discharge. This nurse updated that the system is stating that the admission needs signed before the discharge can be placed, stated that he would be up here to sign the admission soon so we can proceed with discharge. Patient updated by this nurse, Patient stated "well my girlfriend is going to be here at 1200, I'm leaving around 1200 no matter what." Patient requested his IV be removed and he got himself dressed in his clothing, patient stated that he is leaving and will not be waiting for discharge paperwork. This nurse educated patient on the risk of or a worsening condition due to leaving AMA. AMA papers signed at 1154 and patient left ICU floor immediately after signing AMA papers.
--- NOTE | 2019-08-08 12:55 | NUR ---
updated by this nurse at 1154 on patient leaving ICU floor AMA.
== END 2019-08-08 11:54 | disposition left against medical advice (07) | DRG 918 ==
LOC: EDUNIT# 21:56 → ER 21:57 → ICU 23:59
PROVIDERS: ADMIT Internal Medicine; ATTEND Internal Medicine
DX: T51.0X1A Toxic effect of ethanol, accidental (unintentional), initial encounter (principal); E16.1 Other hypoglycemia; G40.909 Epilepsy, unspecified, not intractable, without status epilepticus; K21.9 Gastro-esophageal reflux disease without esophagitis; G47.9 Sleep disorder, unspecified; F41.9 Anxiety disorder, unspecified; F32.9 Major depressive disorder, single episode, unspecified; J43.9 Emphysema, unspecified; F10.129 Alcohol abuse with intoxication, unspecified; K70.30 Alcoholic cirrhosis of liver without ascites; Y90.8 Blood alcohol level of 240 mg/100 ml or more; I10 Essential (primary) hypertension; Z95.1 Presence of aortocoronary bypass graft; Z87.891 Personal history of nicotine dependence
CPT/HCPCS: 36415; 51702; 70450; 71045; 72125; 80048; 80053; 80306; 80320; 81000; 82962; 83735; 83935; 84100; 85025; 86141; 87081; 94640; 96361; 96374; 96375; 99291; 99292; G0378

== ENCOUNTER 2019-09-14 15:08 | Emergency (ER) | payer OTHER ==
[~2019-09-14] VITALS: Ht 177 cm; Wt 84.0 kg
[2019-09-14] MEDS ORDERED: NALOXONE 0.4 MG/ML 1 ML (NARCAN) VIAL IV ONE (15:15)
[2019-09-14] MEDS ORDERED: NS IV 1000 ML 1,000 ML IV SCH ×2 (15:15→17:24)
[2019-09-14] MEDS ORDERED: NS IV 1000 ML 1,000 ML ONE (15:16)
[2019-09-14 15:24] LABS: BASOPHILS % (AUTO) 0 % (0-10); EOSINOPHILS % (AUTO) 0 % (0-10); HEMATOCRIT 45 % (40-54); HEMOGLOBIN 15.5 G/DL (13.3-17.7); LYMPHOCYTES % (AUTO) 14 % (12-44); MEAN CORPUSCULAR HEMOGLOBIN 32 PG (25-34); MEAN CORPUSCULAR HGB CONC 35 G/DL (32-36); MEAN CORPUSCULAR VOLUME 93 FL (80-99); MEAN PLATELET VOLUME 9.1 FL (7.4-10.4); MONOCYTES # (AUTO) 2.6 X 10^3 (0.0-1.0); MONOCYTES % (AUTO) 12 % (0-12); NEUTROPHILS # (AUTO) 15.5 X 10^3 (1.8-7.8); NEUTROPHILS % (AUTO) 74 % (42-75); PLATELET COUNT 339 10^3/uL (130-400); RED CELL DISTRIBUTION WIDTH 12.6 % (10.0-14.5); WHITE BLOOD COUNT 21.1 10^3/uL (4.3-11.0)
[2019-09-14 15:25] LABS: BILIRUBIN,URINE NEGATIVE (NEGATIVE); CLARITY,URINE SL CLOUDY; COLOR,URINE YELLOW; GLUCOSE, URINE (UA) NEGATIVE (NEGATIVE); KETONES,URINE NEGATIVE (NEGATIVE); LEUKOCYTE ESTERASE ,URINE NEGATIVE (NEGATIVE); NITRITE,URINE NEGATIVE (NEGATIVE); PH,URINE 5.5 (5-9); PROTEIN,URINE NEGATIVE (NEGATIVE)
--- NOTE | 2019-09-14 15:26 | ED Neurological Problem ---
General Stated Complaint: SEIZURE History of Present Illness Date Seen by Provider: Sep 14, 2019 Time Seen by Provider: 15:10 Initial Comments Is a 39-year-old male brought in by EMS with complaints of seizure- like activity outside of the physician's office, where his mom was inside with a family member. Per EMS an office nurse was holding c-spine to support his head when they arrived. Patient has been unresponsive to EMS and remains unresponsive on arrival to the emergency department. Patient does have intermittent episodes of coughing and sneezing. Patient smells of alcohol, mother told whizzer hand that patient has a history of alcoholism, epilepsy, cirrhosis and has only had 3 beers in the last month. Patient was hypotensive and bradycardic for EMS. IV and normal saline bolus was initiated by EMS, Glucose 100. Patient known to this facility for multiple visits for seizures and alcohol withdrawal. No family present with patient upon arrival, no further history was obtained. Timing/Duration: 1/2 hour Associated Symptoms: No fever/chills, No nausea/vomiting; seizures, sleepy Allergies and Home Medications Allergies Coded Allergies: buspirone (Unverified Adverse Reaction, Severe, CAUSED SEIZURES, 03/17/19) Home Medications Albuterol Sulfate 6.7 Gm Hfa.aer.ad, 2 PUFF INH QID PRN for SHORTNESS OF BREATH, (Reported) Amlodipine Besylate 10 Mg Tablet, 10 MG PO DAILY, (Reported) LAST FILLED #30 04-29-19 Fluticasone/Salmeterol 1 Each Blst.w.dev, 1 PUFF IH BID, (Reported) LAST FILLED #60 05-20-19 Pantoprazole Sodium 40 Mg Tablet.dr, 40 MG PO DAILY, (Reported) LAST FILLED #30 04-14-19 Patient Home Medication List Home Medication List Reviewed: Yes Review of Systems Review of Systems Constitutional: no symptoms reported, see HPI Respiratory: see HPI, cough Skin: see HPI All Other Systems Reviewed Negative Unless Noted: Yes Past Ofeomas-Dytgpn-Kkutvu Hx Past Med/Social Hx: Reviewed Nursing Past Med/Soc Hx Patient Social History Alcohol Beverage of Choice: Beer, Whiskey Drug of Choice: HX COCAINE Type Used: Cigarettes, Smokeless Tobacco Former Smoker, Quit: Mar 17, 2017 2nd Hand Smoke Exposure: Yes Recent Foreign Travel: No Contact w/Someone Who Travel: No Recent Hopitalizations: No Immunizations Up To Date Tetanus Booster (TDap): More than 5yrs PED Vaccines UTD: No Date of Pneumonia Vaccine: Jul 26, 2014 Date of Influenza Vaccine: Jun 15, 2019 Seasonal Allergies Seasonal Allergies: Yes Past Medical History Surgeries: No Respiratory: Yes COPD, Emphysema Cardiac: Yes Hypertension Neurological: Yes Seizure Disorder Reproductive Disorders: No Sexually Transmitted Disease: No HIV/AIDS: No Genitourinary: No Gastrointestinal: Yes (VOMITTING) Gastroesophageal Reflux Musculoskeletal: No Endocrine: No HEENT: No Loss of Vision: Denies Hearing Impairment: Denies Cancer: No Psychosocial: Yes (MILD ANXIETY) Sleep Difficulties, Anxiety, Suicide Attempts, Depression Integumentary: No Blood Disorders: No Adverse Reaction/Blood Tranf: No (N/A) Family Medical History Congestive heart failure 03 FATHER History of - disorder 03 MOTHER (SPINAL TUMORS) Myocardial infarction 03 FATHER Seizure disorder 09 BROTHER Heart Disease, Cancer, CAD Under 55 Years Old, CAD Over 55 Years Old, COPD, Diabetes, Hypertension, Renal Disease, Other Conditions/Hx Physical Exam Vital Signs Vital Signs - First Documented 09/14/19 09/14/19 15:08 15:15 Temp 36.3 Pulse 56 Resp 20 B/P (MAP) 104/72 (83) Pulse Ox 95 O2 Delivery Nasal Cannula O2 Flow Rate 4.00 Capillary Refill : Height, Weight, BMI Height: 5'9.00" Weight: 205lbs. 2.0oz. 93.195105aq; 25.62 BMI Method:Stated General Appearance: mild distress, thin HEENT: TMs normal, pharynx normal; No pharyngeal erythema, No tonsillar exudate Neck: supple, normal inspection; No lymphadenopathy (R), No lymphadenopathy (L) Respiratory: lungs clear, normal breath sounds, other (shallow respirations) Cardiovascular: normal peripheral pulses, regular rate, rhythm, no edema, no gallop, no JVD, no murmur Gastrointestinal: normal bowel sounds, soft; No distended, No mass Genital/Rectal: normal genital exam, normal rectal exam Back: normal inspection; No muscle spasm Extremities: normal inspection, no pedal edema, normal capillary refill Neurologic/Psychiatric: 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 Cough with gag reflex. Difficult to arrouse with verbal stimulus, withdrawals with sternal rub. ), No no motor/sensory deficits, No alert, No normal mood/affect, No oriented x 3 Skin: normal color, cool; No diaphoresis, No rash Lymphatic: no adenopathy Focused Exam Lactate Level 09/14/19 15:15: Lactic Acid Level 4.69*H 09/14/19 17:26: Lactic Acid Level 3.71*H Lactic Acid Level Laboratory Tests Test 09/14/19 15:15 09/14/19 17:26 Lactic Acid Level 4.69 MMOL/L (0.50-2.00) *H 3.71 MMOL/L (0.50-2.00) *H Progress/Results/Core Measures Results/Orders Lab Results Laboratory Tests Test 09/14/19 15:15 09/14/19 15:32 09/14/19 16:28 09/14/19 17:11 Range/Units White Blood Count 21.1 H 4.3-11.0 10^3/uL Red Blood Count 4.80 4.35-5.85 10^6/uL Hemoglobin 15.5 13.3-17.7 G/DL Hematocrit 45 40-54 % Mean Corpuscular Volume 93 80-99 FL Mean Corpuscular Hemoglobin 32 25-34 PG Mean Corpuscular Hemoglobin Concent 35 32-36 G/DL Red Cell Distribution Width 12.6 10.0-14.5 % Platelet Count 339 130-400 10^3/uL Mean Platelet Volume 9.1 7.4-10.4 FL Neutrophils (%) (Auto) 74 42-75 % Lymphocytes (%) (Auto) 14 12-44 % Monocytes (%) (Auto) 12 0-12 % Eosinophils (%) (Auto) 0 0-10 % Basophils (%) (Auto) 0 0-10 % Neutrophils # (Auto) 15.5 H 1.8-7.8 X 10^3 Lymphocytes # (Auto) 3.0 1.0-4.0 X 10^3 Monocytes # (Auto) 2.6 H 0.0-1.0 X 10^3 Eosinophils # (Auto) 0.0 0.0-0.3 10^3/uL Basophils # (Auto) 0.0 0.0-0.1 10^3/uL Neutrophils % (Manual) 71 % Lymphocytes % (Manual) 16 % Monocytes % (Manual) 12 % Band Neutrophils 1 % Blood Morphology Comment NORMAL Prothrombin Time 14.0 12.2-14.7 SEC INR Comment 1.0 0.8-1.4 Activated Partial Thromboplast Time 29 24-35 SEC Urine Color YELLOW Urine Clarity SL CLOUDY Urine pH 5.5 5-9 Urine Specific [place] >=1.030 1.016-1.022 Urine Protein NEGATIVE NEGATIVE Urine Glucose (UA) NEGATIVE NEGATIVE Urine Ketones NEGATIVE NEGATIVE Urine Nitrite NEGATIVE NEGATIVE Urine Bilirubin NEGATIVE NEGATIVE Urine Urobilinogen 0.2 < = 1.0 MG/DL Urine Leukocyte Esterase NEGATIVE NEGATIVE Urine RBC (Auto) NEGATIVE NEGATIVE Urine RBC NONE /HPF Urine WBC 0-2 /HPF Urine Squamous Epithelial Cells NONE /HPF Urine Crystals PRESENT H /LPF Urine Amorphous Sediment MOD SANG URATES H /LPF Urine Bacteria FEW H /HPF Urine Casts PRESENT /LPF Urine Hyaline Casts 2-5 H /LPF Urine Mucus SMALL H /LPF Urine Culture Indicated YES Sodium Level 130 L 135-145 MMOL/L Potassium Level 3.3 L 3.6-5.0 MMOL/L Chloride Level 92 L 98-107 MMOL/L Carbon Dioxide Level 20 L 21-32 MMOL/L Anion Gap 18 H 5-14 MMOL/L Blood Urea Nitrogen 29 H 7-18 MG/DL Creatinine 2.31 H 0.60-1.30 MG/DL Estimat Glomerular Filtration Rate 32 BUN/Creatinine Ratio 13 Glucose Level 105 70-105 MG/DL Lactic Acid Level 4.69 *H 0.50-2.00 MMOL/L Calcium Level 9.1 8.5-10.1 MG/DL Corrected Calcium 8.5-10.1 MG/DL Total Bilirubin 0.4 0.1-1.0 MG/DL Aspartate Amino Transf (AST/SGOT) 44 H 5-34 U/L Alanine Aminotransferase (ALT/SGPT) 45 0-55 U/L Alkaline Phosphatase 73 40-136 U/L Troponin I < 0.028 <0.028 NG/ML Total Protein 8.0 6.4-8.2 GM/DL Albumin 5.1 H 3.2-4.5 GM/DL Urine Opiates Screen NEGATIVE NEGATIVE Urine Oxycodone Screen NEGATIVE NEGATIVE Urine Methadone Screen NEGATIVE NEGATIVE Urine Propoxyphene Screen NEGATIVE NEGATIVE Acetaminophen Level < 10 L 10-30 UG/ML Urine Barbiturates Screen NEGATIVE NEGATIVE Ur Tricyclic Antidepressants Screen NEGATIVE NEGATIVE Urine Phencyclidine Screen NEGATIVE NEGATIVE Urine Amphetamines Screen NEGATIVE NEGATIVE Urine Methamphetamines Screen NEGATIVE NEGATIVE Urine Benzodiazepines Screen NEGATIVE NEGATIVE Urine Cocaine Screen NEGATIVE NEGATIVE Urine Cannabinoids Screen NEGATIVE NEGATIVE Serum Alcohol 410 *H <10 MG/DL Blood Gas Puncture Site RR RB LR Blood Gas Patient Temperature 36.3 36.3 36.3 Arterial Blood pH 7.29 *L 7.23 *L 7.31 *L 7.37-7.43 Arterial Blood Partial Pressure CO2 42 34 L 35 35-45 MMHG Arterial Blood Partial Pressure O2 41 L 51 L 80 79-93 MMHG Arterial Blood HCO3 20 L 14 *L 17 *L 23-27 MMOL/L Arterial Blood Total CO2 20.9 L 14.8 L 18.6 L 21.0-31.0 MMOL/L Arterial Blood Oxygen Saturation 47 L 74 L 94 94-100 % Arterial Blood Base Excess -6.0 L -12.5 L -7.7 L -2.5-2.5 MMOL/L Dagoberto Test YES-POS YES-POS YES-POS Blood Gas Ventilator Setting NO NO NO Blood Gas Inspired Oxygen 4L 4L 5 Test 09/14/19 17:26 Range/Units Lactic Acid Level 3.71 *H 0.50-2.00 MMOL/L Ammonia 25 11-32 UMOL/L Micro Results Microbiology 09/14/19 Influenza Types A,B Antigen (GEOFFREY) - Final, Complete My Orders Orders - KENZIE DAVIES Ed Iv/Invasive Line Start (09/14/19 15:15) Ns Iv 1000 Ml (Sodium Chloride 0.9%) (09/14/19 15:15) Cbc With Automated Diff (09/14/19 15:15) Comprehensive Metabolic Panel (09/14/19 15:15) Blood Culture (09/14/19 15:15) Urinalysis (09/14/19 15:15) Urine Culture (09/14/19 15:15) Protime With Inr (09/14/19 15:15) Partial Thromboplastin Time (09/14/19 15:15) Chest 1 View, Ap/Pa Only (09/14/19 15:15) Troponin I (09/14/19 15:15) O2 (09/14/19 15:15) Lactic Acid Analyzer (09/14/19 15:15) Influenza A And B Antigens (09/14/19 15:15) Drug Screen Stat (Urine) (09/14/19 15:15) Naloxone Injection (Narcan Injection) (09/14/19 15:15) Ns Iv 1000 Ml (Sodium Chloride 0.9%) (09/14/19 15:16) Alcohol (09/14/19 15:19) Acetaminophen (09/14/19 15:19) Manual Differential (09/14/19 15:15) Ct Head Wo (09/14/19 15:31) Arterial Blood Gas (09/14/19 15:36) Thiamine Injection (Vitamin B-1 Injectio (09/14/19 16:00) Arterial Blood Gas (09/14/19 16:33) Arterial Blood Gas (09/14/19 17:11) Ammonia (09/14/19 17:13) Arterial Blood Draw (09/14/19 ) Ceftriaxone For Iv Use (Rocephin For I (09/14/19 17:15) Ekg Tracing (09/14/19 17:20) Ed Iv/Invasive Line Start (09/14/19 17:24) Ns Iv 1000 Ml (Sodium Chloride 0.9%) (09/14/19 17:24) Medications Given in ED Current Medications Medications Dose Ordered Sig/Gallito Route Start Time Stop Time Status Last Admin Dose Admin Ceftriaxone Sodium 2000 mg/ Sterile Water 20 ml @ 240 mls/hr ONCE ONCE IV 09/14/19 17:15 09/14/19 17:19 DC 09/14/19 17:37 240 MLS/HR Naloxone HCl 0.4 mg ONCE ONCE IV 09/14/19 15:15 09/14/19 15:19 DC 09/14/19 15:23 0.4 MG Vital Signs/I&O 09/14/19 09/14/19 09/14/19 15:08 15:15 18:52 Temp 36.3 Pulse 56 81 Resp 20 18 B/P (MAP) 104/72 (83) 115/36 Pulse Ox 95 94 96 O2 Delivery Nasal Cannula Nasal Cannula Nasal Cannula O2 Flow Rate 4.00 4.00 2.00 Progress Progress Note : Time: 15:10 Progress Note Seen and evaluated. We will finish the normal saline bolus from EMS will order a second normal saline bolus. Labs, toxicology, CT head and urinalysis have been ordered. Given the patient's history we will give 0.4 mg Narcan to see if there is any improvement in patient condition. The patient's respiratory status we will also order ABG. Given the vagueness of the patient's story we will also order a CT of the head. No family here to obtain history of today's events. Will keep door open to monitor patient at all times. 1545 No change after Narcan. 1600 ETOH 410, will give 1 L Banana Bag with 20 mEq of KCl. Awaiting ABG, RN concerned that venous draw and not arterial, will re-draw. 1620 - patient's mother and father in the family room at this time. Mother reports that she dropped the patient off this morning at his AA meeting and the patient's father picked him up the father reports that he gave the patient money this morning after the AA meeting and the patient was to buy a cigarettes with this money. The patient then went with the mother to the grandson's appointments at Dr. Campos's office, he was alert and talking to her. Mother reports that this appointment took prop approximately one hour and the patient was acting normal when she went into the appointment, he wanted to stay in the car while she went inside. When she came out the patient was unresponsive and she returned inside and notified office staff of this who in turn notified 911. The patient's mother reports that 2 nights ago the patient drank 4 beers, then had a seizure which lasted approximately 2 minutes and then went to bed for the night and during the night he had several episodes of hematemesis which the mother reports is not uncommon for the patient. He was admitted to [facility] within the last month for cirrhosis and told that there may be a tumor or other abnormality noted on CT of the head in the frontal lobe. During most admissions he leaves AMA. 1630 Still no change with Narcan. B/P 91/54 and pulse 52. No ICU beds available at this facility, family requests transfer to [facility]. Influenza A/B Neg. Ammonia [address] Ma at [facility], agreed to accept patient to ICU. No further recommendations, agreed with Rocephin 2 g IV for elevated WBC and Lactic Acid. 1700 Will continue Banana Bag at 300 ml/hr and add NS 1 L over 1 hour, IV. 1730 Patient has rolled on his side, continues to not follow simple commands or open eyes to verbal stimulation. He does withdrawal and mumble with tactile stimulation, withdrawals extremities. 174 Bed placement at [facility], room 260. B/P 104/58. Keeping door open at all times. 1814 Patient found prone in bed, assisted to supine, B/P 106/60 P 62. SaO2 96 with 3L O2 per NC. 1844 Patient sat up in bed and opened his eyes, would follow simple commands. He was not verbal and would not shake his head yes or no. EMS here to transfer patient. 3 liters from catheter, light yellow urine. Mother still present, spoke to patient, he did follow her voice with his eyes. Initial ECG Impression Date: Sep 14, 2019 Initial ECG Impression Time: 17:34 Initial ECG Rate: 53 Initial ECG Rhythm: Normal Sinus Initial ECG Intervals: Normal Initial ECG Intervals QRSD 104, QTc 516, QTC 485. [place] QRS 82, T -64. Initial ECG Impression: Normal Initial ECG Comparisson: Unchanged Comment Reviewed with Dr. Braswell, agreed with interpretation. Diagnostic Imaging Diagonstic Imaging: Xray Plain Films/CT/US/NM/MRI: chest Comments NAME: JOSE FANG MED REC#: [id number] PT STATUS: REG ER : 1980 PHYSICIAN: KENZIE DAVIES ADMIT DATE: 09/14/19/ER Draft POSDate of Exam:09/14/19 CHEST 1 VIEW, AP/PA ONLY INDICATION: Seizure. TIME OF EXAM: 3:46 p.m. COMPARISON: Correlation is made with prior chest from 08/07/2019. FINDINGS: The heart size is normal. The pulmonary vascularity is unremarkable. The lungs are clear. No infiltrate, effusion or pneumothorax is detected. IMPRESSION: No acute cardiopulmonary process is detected. Dictated on workstation # [id number] Dict: 09/14/19 1554 Trans: 09/14/19 1557 [id number] Interpreted by: MALIK GLORIA MD Electronically signed by: Reviewed: Reviewed by Me Diagonstic Imaging: CT Plain Films/CT/US/NM/MRI: head Comments NAME: JOSE FANG MED REC#: [id number] PT STATUS: REG ER : 1980 PHYSICIAN: KENZIE DAVIES ADMIT DATE: 09/14/19/ER Draft POSDate of Exam:09/14/19 CT HEAD WO INDICATION: Altered mental status and unresponsiveness. TECHNIQUE: Multiple contiguous axial images were obtained through the brain without the use of intravenous contrast. Auto Exposure Controls were utilized during the CT exam to meet ALARA standards for radiation dose reduction. COMPARISON: 08/07/2019. FINDINGS: There are no extra-axial fluid collections. No intracranial hemorrhage. No intracranial mass or mass effect. No midline shift. The ventricles are normal in size and position. There were no focal parenchymal abnormalities in the brain. Calvarial windows were unremarkable. IMPRESSION: Negative noncontrast brain CT. No significant change since the previous study. Dictated on workstation # [id number] Dict: 09/14/19 1613 Trans: 09/14/19 1623 [facility] [id number] Interpreted by: LALITO LAWRENCE MD Electronically signed by: Departure Impression Primary Impression: Seizure disorder Additional Impressions: Altered mental status Qualified Codes: R40.1 - Stupor Acute alcohol intoxication Qualified Codes: F10.929 - Alcohol use, unspecified with intoxication, unspecified Disposition: XFER SHT-TRM HOSP Condition: Critical Transfer Transfer Reason: Diversion Time Spoke to Accepting Phy: 17:00 Departure-Patient Inst. Referrals: [facility]/ (PCP) Primary Care Physician YFN LU (Family) Primary Care Physician Copy Copies To 1: ASHLYN AGUILAR DO Progress Note Assessment/Plan Date Seen by Provider: Sep 14, 2019 Time Seen by Provider: 15:10 Events since last exam Continues to remain stable. Assessment/Plan Continue close monitoring, until transfer to [facility]. Vitals Last set of Vitals Signs Vital Signs Date Time Temp Pulse Resp B/P (MAP) Pulse Ox O2 Delivery O2 Flow Rate FiO2 09/14/19 18:52 81 18 115/36 96 Nasal Cannula 2.00 09/14/19 15:15 36.3 Labs Laboratory Tests 09/14/19 15:15: White Blood Count 21.1H, Red Blood Count 4.80, Hemoglobin 15.5, Hematocrit 45, Mean Corpuscular Volume 93, Mean Corpuscular Hemoglobin 32, Mean Corpuscular Hemoglobin Concent 35, Red Cell Distribution Width 12.6, Platelet Count 339, Mean Platelet Volume 9.1, Neutrophils (%) (Auto) 74, Lymphocytes (%) (Auto) 14, Monocytes (%) (Auto) 12, Eosinophils (%) (Auto) 0, Basophils (%) (Auto) 0, Neutrophils # (Auto) 15.5H, Lymphocytes # (Auto) 3.0, Monocytes # (Auto) 2.6H, Eosinophils # (Auto) 0.0, Basophils # (Auto) 0.0, Neutrophils % (Manual) 71, Lymphocytes % (Manual) 16, Monocytes % (Manual) 12, Band Neutrophils 1, Blood Morphology Comment NORMAL, Prothrombin Time 14.0, INR Comment 1.0, Activated Partial Thromboplast Time 29, Urine Color YELLOW, Urine Clarity SL CLOUDY, Urine pH 5.5, Urine Specific [place] >=1.030, Urine Protein NEGATIVE, Urine Glucose (UA) NEGATIVE, Urine Ketones NEGATIVE, Urine Nitrite NEGATIVE, Urine Bilirubin NEGATIVE, Urine Urobilinogen 0.2, Urine Leukocyte Esterase NEGATIVE, Urine RBC (Auto) NEGATIVE, Urine RBC NONE, Urine WBC 0-2, Urine Squamous Epithelial Cells NONE, Urine Crystals PRESENTH, Urine Amorphous Sediment MOD SANG URATESH, Urine Bacteria FEWH, Urine Casts PRESENT, Urine Hyaline Casts 2-5H, Urine Mucus SMALLH , Urine Culture Indicated YES, Sodium Level 130L, Potassium Level 3.3L, Chloride Level 92L, Carbon Dioxide Level 20L, Anion Gap 18H, Blood Urea Nitrogen 29H, Creatinine 2.31H, Estimat Glomerular Filtration Rate 32, BUN/Creatinine Ratio 13, Glucose Level 105, Lactic Acid Level 4.69*H, Calcium Level 9.1, Corrected Calcium , Total Bilirubin 0.4, Aspartate Amino Transf (AST/SGOT) 44H, Alanine Aminotransferase (ALT/SGPT) 45, Alkaline Phosphatase 73, Troponin I < 0.028, Total Protein 8.0, Albumin 5.1H, Urine Opiates Screen NEGATIVE, Urine Oxycodone Screen NEGATIVE, Urine Methadone Screen NEGATIVE, Urine Propoxyphene Screen NEGATIVE, Acetaminophen Level < 10L, Urine Barbiturates Screen NEGATIVE, Ur Tricyclic Antidepressants Screen NEGATIVE, Urine Phencyclidine Screen NEGATIVE, Urine Amphetamines Screen NEGATIVE, Urine Methamphetamines Screen NEGATIVE, Urine Benzodiazepines Screen NEGATIVE, Urine Cocaine Screen NEGATIVE, Urine Cannabinoids Screen NEGATIVE, Serum Alcohol 410*H 09/14/19 15:32: Blood Gas Puncture Site RR, Blood Gas Patient Temperature 36.3, Arterial Blood pH 7.29*L, Arterial Blood Partial Pressure CO2 42, Arterial Blood Partial Pressure O2 41L, Arterial Blood HCO3 20L, Arterial Blood Total CO2 20.9L, Arterial Blood Oxygen Saturation 47L, Arterial Blood Base Excess -6.0L, Dagoberto Test YES-POS, Blood Gas Ventilator Setting NO, Blood Gas Inspired Oxygen 4L 09/14/19 16:28: Blood Gas Puncture Site RB, Blood Gas Patient Temperature 36.3, Arterial Blood pH 7.23*L, Arterial Blood Partial Pressure CO2 34L, Arterial Blood Partial Pressure O2 51L, Arterial Blood HCO3 14*L, Arterial Blood Total CO2 14.8L, Arterial Blood Oxygen Saturation 74L, Arterial Blood Base Excess -12.5L, Dagoberto Test YES-POS, Blood Gas Ventilator Setting NO, Blood Gas Inspired Oxygen 4L 09/14/19 17:11: Blood Gas Puncture Site LR, Blood Gas Patient Temperature 36.3, Arterial Blood pH 7.31*L, Arterial Blood Partial Pressure CO2 35, Arterial Blood Partial Pressure O2 80, Arterial Blood HCO3 17*L, Arterial Blood Total CO2 18.6L, Arterial Blood Oxygen Saturation 94, Arterial Blood Base Excess -7.7L, Dagoberto Test YES-POS, Blood Gas Ventilator Setting NO, Blood Gas Inspired Oxygen 5 09/14/19 17:26: Lactic Acid Level 3.71*H, Ammonia 25 Microbiology 09/14/19 Influenza Types A,B Antigen (GEOFFREY) - Final, Complete KENZIE DAVIES Sep 14, 2019 15:26 POS
[2019-09-14 15:45] LABS: ALANINE AMINOTRANSFERASE 45 U/L (0-55); ALBUMIN 5.1 GM/DL (3.2-4.5); ALKALINE PHOSPHATASE 73 U/L (40-136); BILIRUBIN,TOTAL 0.4 MG/DL (0.1-1.0); BUN/CREATININE RATIO 13; CALCIUM 9.1 MG/DL (8.5-10.1); CARBON DIOXIDE 20 MMOL/L (21-32); CHLORIDE 92 MMOL/L (98-107); CREATININE SERUM 2.31 MG/DL (0.60-1.30); GFR ESTIMATED 32; GLUCOSE 105 MG/DL (70-105); POTASSIUM 3.3 MMOL/L (3.6-5.0); SODIUM 130 MMOL/L (135-145)
[2019-09-14 15:48] LABS: WBC,URINE 0-2 /HPF
[2019-09-14 15:48] LABS: ABG OXYGEN SATURATION 47 % (94-100); ABG PCO2 42 MMHG (35-45); ABG PO2 41 MMHG (79-93); ABG TCO2 20.9 MMOL/L (21.0-31.0)
[2019-09-14 15:49] LABS: AMORPHOUS SEDIMENT,UR MOD AMOR URATES /LPF; BACTERIA,URINE FEW /HPF
[2019-09-14 15:51] LABS: ABG PH 7.29 (7.37-7.43); ALLENS TEST YES-POS; INSPIRED O2 4L; PATIENT TEMP 36.3; VENTILATOR NO
[2019-09-14 15:52] LABS: ACETAMINOPHEN < 10 UG/ML (10-30)
[2019-09-14 15:57] LABS: AMPHETAMINE SCREEN, URINE NEGATIVE (NEGATIVE); BARBITURATE SCREEN URINE NEGATIVE (NEGATIVE); BENZODIAZEPINES SCREEN URINE NEGATIVE (NEGATIVE); CANNABINOID SCREEN, URINE NEGATIVE (NEGATIVE); COCAINE SCREEN URINE NEGATIVE (NEGATIVE); METHADONE STAT NEGATIVE (NEGATIVE); METHAMPHETAMINE SCREEN URINE S NEGATIVE (NEGATIVE); OPIATE SCREEN URINE NEGATIVE (NEGATIVE); OXYCODONE STAT NEGATIVE (NEGATIVE); TRICYCLIC ANTIDEPRESSANTS SCRE NEGATIVE (NEGATIVE)
--- NOTE | 2019-09-14 15:57 | Diagnostic Imaging Report ---
INDICATION: Seizure. TIME OF EXAM: 3:46 p.m. COMPARISON: Correlation is made with prior chest from 08/07/2019. FINDINGS: The heart size is normal. The pulmonary vascularity is unremarkable. The lungs are clear. No infiltrate, effusion or pneumothorax is detected. IMPRESSION: No acute cardiopulmonary process is detected. Dictated by: Dictated on workstation # [id number]
[2019-09-14 15:58] LABS: PROPOXYPHENE STAT NEGATIVE (NEGATIVE)
[2019-09-14] MEDS ORDERED: THIAMINE INJECTION 100 MG, FOLIC ACID INJECTION 1 MG, VITAMIN MULTI INJECTION 10 ML, MA... IV SCH ×5 (16:00)
[2019-09-14 16:02] LABS: BAND NEUTROPHILS 1 %; LYMPHOCYTES % (MANUAL) 16 %; MONOCYTES % (MANUAL) 12 %; NEUTROPHILS % (MANUAL) 71 %; RBC MORPH NORMAL
--- NOTE | 2019-09-14 16:23 | Diagnostic Imaging Report ---
INDICATION: Altered mental status and unresponsiveness. TECHNIQUE: Multiple contiguous axial images were obtained through the brain without the use of intravenous contrast. Auto Exposure Controls were utilized during the CT exam to meet ALARA standards for radiation dose reduction. COMPARISON: 08/07/2019. FINDINGS: There are no extra-axial fluid collections. No intracranial hemorrhage. No intracranial mass or mass effect. No midline shift. The ventricles are normal in size and position. There were no focal parenchymal abnormalities in the brain. Calvarial windows were unremarkable. IMPRESSION: Negative noncontrast brain CT. No significant change since the previous study. Dictated by: Dictated on workstation # [id number]
[2019-09-14 16:39] LABS: ABG BASE EXCESS -12.5 MMOL/L (-2.5-2.5); ABG OXYGEN SATURATION 74 % (94-100); ABG PCO2 34 MMHG (35-45); ABG PO2 51 MMHG (79-93); ABG TCO2 14.8 MMOL/L (21.0-31.0); ALLENS TEST YES-POS
[2019-09-14 16:40] LABS: INSPIRED O2 4L; PATIENT TEMP 36.3; VENTILATOR NO
[2019-09-14 16:41] LABS: ABG PH 7.23 (7.37-7.43)
[2019-09-14] MEDS ORDERED: cefTRIAXone FOR IV USE 2,000 MG in WATER (STERILE) FOR INJECTION 20 ML IV ONE (17:15)
[2019-09-14 17:18] LABS: ABG BASE EXCESS -7.7 MMOL/L (-2.5-2.5); ABG OXYGEN SATURATION 94 % (94-100); ABG PCO2 35 MMHG (35-45); ABG PO2 80 MMHG (79-93); ABG TCO2 18.6 MMOL/L (21.0-31.0)
[2019-09-14 17:20] LABS: ALLENS TEST YES-POS; INSPIRED O2 5; PATIENT TEMP 36.3; VENTILATOR NO
[2019-09-14 17:21] LABS: ABG PH 7.31 (7.37-7.43)
[2019-09-14 18:52] VITALS: BP 115/36
== END 2019-09-14 18:52 | disposition short-term general hospital (02) ==
LOC: EDUNIT# 15:08 → ER 15:09
DX: G40.909 Epilepsy, unspecified, not intractable, without status epilepticus (principal); R41.82 Altered mental status, unspecified; F10.229 Alcohol dependence with intoxication, unspecified; K70.30 Alcoholic cirrhosis of liver without ascites; J43.9 Emphysema, unspecified; I10 Essential (primary) hypertension; K21.9 Gastro-esophageal reflux disease without esophagitis; F41.9 Anxiety disorder, unspecified; F32.9 Major depressive disorder, single episode, unspecified; Z82.49 Family history of ischemic heart disease and other diseases of the circulatory system; Z88.8 Allergy status to other drugs, medicaments and biological substances; Z79.51 Long term (current) use of inhaled steroids; Z87.891 Personal history of nicotine dependence
CPT/HCPCS: 36415; 36600; 51702; 70450; 71045; 80053; 80306; 80320; 80329; 81000; 82140; 82805; 83605; 84484; 85007; 85027; 85610; 85730; 87040; 87088; 87804; 93005; 96374; 96375

== ENCOUNTER 2019-09-18 12:41 | Emergency (ER) | payer OTHER ==
[~2019-09-18] VITALS: Ht 175 cm; Wt 84.0 kg
[2019-09-18] MEDS ORDERED: NS IV 1000 ML 1,000 ML IV SCH (13:15)
[2019-09-18 13:16] LABS: BILIRUBIN,URINE NEGATIVE (NEGATIVE); CLARITY,URINE CLEAR; COLOR,URINE YELLOW; GLUCOSE, URINE (UA) NEGATIVE (NEGATIVE); KETONES,URINE NEGATIVE (NEGATIVE); LEUKOCYTE ESTERASE ,URINE NEGATIVE (NEGATIVE); NITRITE,URINE NEGATIVE (NEGATIVE); PROTEIN,URINE NEGATIVE (NEGATIVE)
[2019-09-18 13:22] LABS: BACTERIA,URINE NEGATIVE /HPF
--- NOTE | 2019-09-18 13:30 | NUR ---
Pt in family room. Pt has pulled IV out and there is blood and IV fluids everywhere. Pt moved to rm 5 at this time.
[2019-09-18 13:36] LABS: BASOPHILS # (AUTO) 0.1 10^3/uL (0.0-0.1); BASOPHILS % (AUTO) 1 % (0-10); EOSINOPHILS # (AUTO) 0.2 10^3/uL (0.0-0.3); EOSINOPHILS % (AUTO) 2 % (0-10); HEMATOCRIT 42 % (40-54); HEMOGLOBIN 14.6 G/DL (13.3-17.7); LYMPHOCYTES # (AUTO) 1.9 X 10^3 (1.0-4.0); LYMPHOCYTES % (AUTO) 18 % (12-44); MEAN CORPUSCULAR HEMOGLOBIN 33 PG (25-34); MEAN CORPUSCULAR HGB CONC 35 G/DL (32-36); MEAN CORPUSCULAR VOLUME 95 FL (80-99); MEAN PLATELET VOLUME 9.5 FL (7.4-10.4); MONOCYTES # (AUTO) 0.9 X 10^3 (0.0-1.0); MONOCYTES % (AUTO) 8 % (0-12); NEUTROPHILS # (AUTO) 7.5 X 10^3 (1.8-7.8); NEUTROPHILS % (AUTO) 72 % (42-75); PLATELET COUNT 237 10^3/uL (130-400); RED CELL DISTRIBUTION WIDTH 12.2 % (10.0-14.5); WHITE BLOOD COUNT 10.5 10^3/uL (4.3-11.0)
[2019-09-18 13:41] LABS: AMPHETAMINE SCREEN, URINE NEGATIVE (NEGATIVE); BARBITURATE SCREEN URINE NEGATIVE (NEGATIVE); BENZODIAZEPINES SCREEN URINE POSITIVE (NEGATIVE); CANNABINOID SCREEN, URINE NEGATIVE (NEGATIVE); COCAINE SCREEN URINE NEGATIVE (NEGATIVE); METHADONE STAT NEGATIVE (NEGATIVE); METHAMPHETAMINE SCREEN URINE S NEGATIVE (NEGATIVE); OPIATE SCREEN URINE NEGATIVE (NEGATIVE); OXYCODONE STAT NEGATIVE (NEGATIVE); PROPOXYPHENE STAT NEGATIVE (NEGATIVE); TRICYCLIC ANTIDEPRESSANTS SCRE NEGATIVE (NEGATIVE)
[2019-09-18 13:48] LABS: PROTHROMBIN TIME PATIENT 13.7 SEC (12.2-14.7)
[2019-09-18 13:55] LABS: ALANINE AMINOTRANSFERASE 34 U/L (0-55); ALBUMIN 4.8 GM/DL (3.2-4.5); ALKALINE PHOSPHATASE 74 U/L (40-136); BILIRUBIN,TOTAL 0.3 MG/DL (0.1-1.0); BUN/CREATININE RATIO 8; CALCIUM 9.5 MG/DL (8.5-10.1); CARBON DIOXIDE 21 MMOL/L (21-32); CHLORIDE 110 MMOL/L (98-107); CREATININE SERUM 0.75 MG/DL (0.60-1.30); GFR ESTIMATED > 60; GLUCOSE 94 MG/DL (70-105); POTASSIUM 3.7 MMOL/L (3.6-5.0); SODIUM 147 MMOL/L (135-145); TOTAL PROTEIN 7.6 GM/DL (6.4-8.2)
--- NOTE | 2019-09-18 13:55 | ED Psychosocial ---
General Chief Complaint: Substance Abuse Stated Complaint: ALCOHOL ABUSE Nursing Triage Note: PATIENT BROUGHT BY EMS FOR ALCOHOLISM. EMS REPORTS THAT HE WAS LAST KNOWN WELL AT 1000 BUT SHOWED UP AT HIS MOTHERS PLACE OF WORK [employer]IN STUPOR. PATIENT STATES HE HAD MORE THAN A 20 PACK. Source: patient Exam Limitations: no limitations History of Present Illness Date Seen by Provider: Sep 18, 2019 Time Seen by Provider: 13:53 Initial Comments To ER with reports of alcohol abuse, showed up to his mother's place of employment and slumped over. He has a known history of alcoholism, recently released from [facility] for alcohol-related diagnoses. Timing/Duration: just prior to arrival Severity: moderate Allergies and Home Medications Allergies Coded Allergies: buspirone (Unverified Adverse Reaction, Severe, CAUSED SEIZURES, 03/17/19) Home Medications Albuterol Sulfate 6.7 Gm Hfa.aer.ad, 2 PUFF INH QID PRN for SHORTNESS OF BREATH, (Reported) Amlodipine Besylate 10 Mg Tablet, 10 MG PO DAILY, (Reported) LAST FILLED #30 04-29-19 Fluticasone/Salmeterol 1 Each Blst.w.dev, 1 PUFF IH BID, (Reported) LAST FILLED #60 05-20-19 Levofloxacin 750 Mg Tablet, 750 MG PO DAILY Prescribed by: SIA BLANKENSHIP on 09/18/19 1419 Pantoprazole Sodium 40 Mg Tablet.dr, 40 MG PO DAILY, (Reported) LAST FILLED #30 04-14-19 Patient Home Medication List Home Medication List Reviewed: Yes Review of Systems Constitutional: see HPI EENTM: see HPI Respiratory: no symptoms reported Cardiovascular: no symptoms reported Genitourinary: no symptoms reported Musculoskeletal: no symptoms reported Skin: no symptoms reported Past Jargdot-Squdve-Ingpyh Hx Patient Social History Alcohol Use: Regular Use Number of Drinks Today: GG Alcohol Beverage of Choice: Beer, Whiskey Recreational Drug Use: No Drug of Choice: HX COCAINE Smoking Status: Current Everyday Smoker Type Used: Cigarettes, Smokeless Tobacco Former Smoker, Quit: Mar 17, 2017 2nd Hand Smoke Exposure: Yes Recent Foreign Travel: No Contact w/Someone Who Travel: No Recent Infectious Disease Expo: No Recent Hopitalizations: No Immunizations Up To Date Tetanus Booster (TDap): More than 5yrs PED Vaccines UTD: No Date of Pneumonia Vaccine: Jul 26, 2014 Date of Influenza Vaccine: Jun 15, 2019 Seasonal Allergies Seasonal Allergies: Yes Past Medical History Surgeries: No Respiratory: Yes COPD, Emphysema Cardiac: Yes Hypertension Neurological: Yes Seizure Disorder Reproductive Disorders: No Sexually Transmitted Disease: No HIV/AIDS: No Genitourinary: No Gastrointestinal: Yes (VOMITTING) Gastroesophageal Reflux Musculoskeletal: No Endocrine: No HEENT: No Loss of Vision: Denies Hearing Impairment: Denies Cancer: No Psychosocial: Yes (MILD ANXIETY) Sleep Difficulties, Anxiety, Suicide Attempts, Depression Integumentary: No Blood Disorders: No Adverse Reaction/Blood Tranf: No (N/A) Family Medical History Congestive heart failure 03 FATHER History of - disorder 03 MOTHER (SPINAL TUMORS) Myocardial infarction 03 FATHER Seizure disorder 09 BROTHER Heart Disease, Cancer, CAD Under 55 Years Old, CAD Over 55 Years Old, COPD, Diabetes, Hypertension, Renal Disease, Other Conditions/Hx Physical Exam Vital Signs - First Documented 09/18/19 13:03 Temp 36.6 Pulse 99 Resp 16 B/P (MAP) 109/80 (90) Pulse Ox 94 Capillary Refill : Less Than 3 Seconds Height, Weight, BMI Height: 5'9.00" Weight: 205lbs. 2.0oz. 93.084833uq; 27.00 BMI Method:Stated General Appearance: WD/WN, no apparent distress, other (alert sitting up in his chair, speech is slurred, has pulled out his own IV twice. Denies wanting to hurt himself.) HEENT: PERRL/EOMI, normal ENT inspection Neck: non-tender, full range of motion Respiratory: no respiratory distress, no accessory muscle use Cardiovascular: regular rate, rhythm, no murmur Gastrointestinal: normal bowel sounds, non tender, soft Extremities: normal range of motion, non-tender Neurologic/Psychiatric: alert, normal mood/affect Behavior/Eye Contact: cooperative Skin: normal color, warm/dry Progress/Results/Core Measures Results/Orders Lab Results Laboratory Tests Test 09/18/19 12:52 09/18/19 13:29 Range/Units Urine Color YELLOW Urine Clarity CLEAR Urine pH 6.0 5-9 Urine Specific [place] <=1.005 1.016-1.022 Urine Protein NEGATIVE NEGATIVE Urine Glucose (UA) NEGATIVE NEGATIVE Urine Ketones NEGATIVE NEGATIVE Urine Nitrite NEGATIVE NEGATIVE Urine Bilirubin NEGATIVE NEGATIVE Urine Urobilinogen 0.2 < = 1.0 MG/DL Urine Leukocyte Esterase NEGATIVE NEGATIVE Urine RBC (Auto) NEGATIVE NEGATIVE Urine RBC NONE /HPF Urine WBC NONE /HPF Urine Squamous Epithelial Cells NONE /HPF Urine Crystals NONE /LPF Urine Bacteria NEGATIVE /HPF Urine Casts NONE /LPF Urine Mucus NEGATIVE /LPF Urine Culture Indicated NO Urine Opiates Screen NEGATIVE NEGATIVE Urine Oxycodone Screen NEGATIVE NEGATIVE Urine Methadone Screen NEGATIVE NEGATIVE Urine Propoxyphene Screen NEGATIVE NEGATIVE Urine Barbiturates Screen NEGATIVE NEGATIVE Ur Tricyclic Antidepressants Screen NEGATIVE NEGATIVE Urine Phencyclidine Screen NEGATIVE NEGATIVE Urine Amphetamines Screen NEGATIVE NEGATIVE Urine Methamphetamines Screen NEGATIVE NEGATIVE Urine Benzodiazepines Screen POSITIVE H NEGATIVE Urine Cocaine Screen NEGATIVE NEGATIVE Urine Cannabinoids Screen NEGATIVE NEGATIVE White Blood Count 10.5 4.3-11.0 10^3/uL Red Blood Count 4.44 4.35-5.85 10^6/uL Hemoglobin 14.6 13.3-17.7 G/DL Hematocrit 42 40-54 % Mean Corpuscular Volume 95 80-99 FL Mean Corpuscular Hemoglobin 33 25-34 PG Mean Corpuscular Hemoglobin Concent 35 32-36 G/DL Red Cell Distribution Width 12.2 10.0-14.5 % Platelet Count 237 130-400 10^3/uL Mean Platelet Volume 9.5 7.4-10.4 FL Neutrophils (%) (Auto) 72 42-75 % Lymphocytes (%) (Auto) 18 12-44 % Monocytes (%) (Auto) 8 0-12 % Eosinophils (%) (Auto) 2 0-10 % Basophils (%) (Auto) 1 0-10 % Neutrophils # (Auto) 7.5 1.8-7.8 X 10^3 Lymphocytes # (Auto) 1.9 1.0-4.0 X 10^3 Monocytes # (Auto) 0.9 0.0-1.0 X 10^3 Eosinophils # (Auto) 0.2 0.0-0.3 10^3/uL Basophils # (Auto) 0.1 0.0-0.1 10^3/uL Prothrombin Time 13.7 12.2-14.7 SEC INR Comment 1.0 0.8-1.4 Sodium Level 147 H 135-145 MMOL/L Potassium Level 3.7 3.6-5.0 MMOL/L Chloride Level 110 H 98-107 MMOL/L Carbon Dioxide Level 21 21-32 MMOL/L Anion Gap 16 H 5-14 MMOL/L Blood Urea Nitrogen 6 L 7-18 MG/DL Creatinine 0.75 0.60-1.30 MG/DL Estimat Glomerular Filtration Rate > 60 BUN/Creatinine Ratio 8 Glucose Level 94 70-105 MG/DL Calcium Level 9.5 8.5-10.1 MG/DL Corrected Calcium 8.5-10.1 MG/DL Total Bilirubin 0.3 0.1-1.0 MG/DL Aspartate Amino Transf (AST/SGOT) 29 5-34 U/L Alanine Aminotransferase (ALT/SGPT) 34 0-55 U/L Alkaline Phosphatase 74 40-136 U/L Total Protein 7.6 6.4-8.2 GM/DL Albumin 4.8 H 3.2-4.5 GM/DL Serum Alcohol 270 H <10 MG/DL My Orders Orders - SIA BLANKENSHIP APRN Cbc With Automated Diff (09/18/19 13:08) Comprehensive Metabolic Panel (09/18/19 13:08) Alcohol (09/18/19 13:08) Protime With Inr (09/18/19 13:08) Ua Culture If Indicated (09/18/19 13:08) Drug Screen Stat (Urine) (09/18/19 13:08) Ns Iv 1000 Ml (Sodium Chloride 0.9%) (09/18/19 13:15) Chest 1 View, Ap/Pa Only (09/18/19 13:38) Ceftriaxone For Im Use (Rocephin For Im (09/18/19 14:15) Doxycycline Hyclate Tablet (Vibramycin T (09/18/19 14:15) Lidocaine 1% Inj 20 Ml (Xylocaine 1% Inj (09/18/19 14:15) Vital Signs/I&O 09/18/19 13:03 Temp 36.6 Pulse 99 Resp 16 B/P (MAP) 109/80 (90) Pulse Ox 94 Blood Pressure Mean: 90 POS Diagnostic Imaging Diagonstic Imaging: Xray Plain Films/CT/US/NM/MRI: chest Comments NAME: JOSE FANG MED REC#: [id number] PT STATUS: REG ER : 1980 PHYSICIAN: SIA BLANKENSHIP APRN ADMIT DATE: 09/18/19/ER Draft POSDate of Exam:09/18/19 CHEST 1 VIEW, AP/PA ONLY INDICATION: Alcohol abuse. TECHNIQUE: Single view chest 1:55 PM. CORRELATION STUDY: 09/14/2019 FINDINGS: The heart size, mediastinal configuration and pulmonary vascularity are within normal limits. There has been development of slight increased density in the right infrahilar region. Also suggestion of mild left basilar atelectasis. The remaining lung go are otherwise clear. IMPRESSION: 1. Increased density right infrahilar region along with minimal left basilar atelectasis. Given distribution on the right side, the possibility of aspiration pneumonia is not excluded. Clinical correlation recommended. Dictated on workstation # [id number] Dict: 09/18/19 1359 Trans: 09/18/19 1407 [facility] [id number] Interpreted by: CORAL SKINNER DO Electronically signed by: Departure Communication (Admissions) Spoke with Dr. Johnson, agrees outpatient therapy is appropriate. He's been admitted 6 times and left AGAINST MEDICAL ADVICE 6 times. 1434-patient is now standing at the edge of the desk, asking to use the portable telephone. I gave him this and he is able to dial a phone number by himself. Impression Primary Impression: Alcohol abuse Additional Impression: Right middle lobe pneumonia Qualified Codes: J18.1 - Lobar pneumonia, unspecified organism Disposition: HOME, SELF-CARE Condition: Improved Departure-Patient Inst. Decision time for Depature: 14:17 Ref[facility]: [facility] [place] Primary Care Physician YFN LU (Family) Primary Care Physician Patient Instructions: ALCOHOL AND SUBSTANCE ABUSE, Pneumonia, Adult (DC) Add. Discharge Instructions: 1. Follow-up with your doctor on Saturday. It is very important that you do this, failure to do so could result in severe disability or . Take antibiotics as directed, they've been sent electronically to [facility]. Failure to do so could result in disability or . All discharge instructions reviewed with patient and/or family. Voiced understanding. Scripts Levofloxacin (Levaquin) 750 Mg Tablet 750 MG PO DAILY, #5 TAB Prov: SIA BLANKENSHIP APRN 09/18/19 SIA BLANKENSHIP APRN Sep 18, 2019 13:55 POS
--- NOTE | 2019-09-18 14:08 | Diagnostic Imaging Report ---
INDICATION: Alcohol abuse. TECHNIQUE: Single view chest 1:55 PM. CORRELATION STUDY: 09/14/2019 FINDINGS: The heart size, mediastinal configuration and pulmonary vascularity are within normal limits. There has been development of slight increased density in the right infrahilar region. Also suggestion of mild left basilar atelectasis. The remaining lung go are otherwise clear. IMPRESSION: 1. Increased density right infrahilar region along with minimal left basilar atelectasis. Given distribution on the right side, the possibility of aspiration pneumonia is not excluded. Clinical correlation recommended. Dictated by: Dictated on workstation # [id number]
[2019-09-18] MEDS ORDERED: DOXYCYCLINE 100 MG (VIBRAMYCIN) TABLET PO SCH (14:15)
[2019-09-18] MEDS ORDERED: cefTRIAXone 1,000 MG/2.86 ml vial (IM ONLY) IM SCH (14:15)
[2019-09-18] MEDS ORDERED: LIDOCAINE 1% INJ 20 ML 20 ML VIAL INJ ONE (14:15)
[2019-09-18] MEDS ORDERED: AMOX-358 PO (14:18)
[2019-09-18] MEDS ORDERED: LEVO750T9 PO (14:19)
[2019-09-18 14:45] VITALS: BP 109/80
== END 2019-09-18 14:45 | disposition home or self-care (01) ==
LOC: EDUNIT# 12:41 → ER 12:42
DX: F10.20 Alcohol dependence, uncomplicated (principal); J18.1 Lobar pneumonia, unspecified organism; J43.9 Emphysema, unspecified; I10 Essential (primary) hypertension; G40.909 Epilepsy, unspecified, not intractable, without status epilepticus; K21.9 Gastro-esophageal reflux disease without esophagitis; F41.9 Anxiety disorder, unspecified; F32.9 Major depressive disorder, single episode, unspecified; F17.210 Nicotine dependence, cigarettes, uncomplicated; Z88.8 Allergy status to other drugs, medicaments and biological substances; Z82.49 Family history of ischemic heart disease and other diseases of the circulatory system
CPT/HCPCS: 36415; 71045; 80053; 80306; 80320; 81000; 85025; 85610; 96372

== ENCOUNTER 2019-09-22 08:52 | Emergency (ER) | payer SELFPAY ==
[~2019-09-22] VITALS: Ht 175 cm; Wt 74.9 kg
[~2019-09-22 08:52] MED LIST changes: +AMOX-358 PO; +LEVO750T9 PO
[2019-09-22] MEDS ORDERED: LACTATED RINGERS 1,000 ML IV ONE (09:47)
--- NOTE | 2019-09-22 09:50 | NUR ---
MOM DOING ALL TALKING FOR PT, ENC TO ALLOW PT TO ANSWER QUESTIONS TO ASSESS MENTAL STATUS. PT STATES HAD PNEM BUT DID NOT TAKE ANY ANTIBIOTICS AFTER LEAVING HOSP LAST SATURDAY
[2019-09-22] MEDS ORDERED: PANTOPRAZOLE 40 MG (PROTONIX) VIAL IV ONE (10:00)
[2019-09-22] MEDS ORDERED: ONDANSETRON 4 MG/2 ML (SDV) Z0FRAN IVP ONE (10:00)
[2019-09-22 10:03] LABS: BASOPHILS # (AUTO) 0.1 10^3/uL (0.0-0.1); BASOPHILS % (AUTO) 1 % (0-10); EOSINOPHILS # (AUTO) 0.2 10^3/uL (0.0-0.3); EOSINOPHILS % (AUTO) 1 % (0-10); HEMATOCRIT 44 % (40-54); HEMOGLOBIN 14.9 G/DL (13.3-17.7); LYMPHOCYTES # (AUTO) 2.3 X 10^3 (1.0-4.0); LYMPHOCYTES % (AUTO) 19 % (12-44); MEAN CORPUSCULAR HEMOGLOBIN 33 PG (25-34); MEAN CORPUSCULAR HGB CONC 34 G/DL (32-36); MEAN CORPUSCULAR VOLUME 96 FL (80-99); MEAN PLATELET VOLUME 9.8 FL (7.4-10.4); MONOCYTES # (AUTO) 1.3 X 10^3 (0.0-1.0); MONOCYTES % (AUTO) 11 % (0-12); NEUTROPHILS # (AUTO) 8.3 X 10^3 (1.8-7.8); NEUTROPHILS % (AUTO) 69 % (42-75); PLATELET COUNT 307 10^3/uL (130-400); RED CELL DISTRIBUTION WIDTH 12.5 % (10.0-14.5); WHITE BLOOD COUNT 12.1 10^3/uL (4.3-11.0)
[2019-09-22 10:15] LABS: ALANINE AMINOTRANSFERASE 34 U/L (0-55); ALBUMIN 4.9 GM/DL (3.2-4.5); ALKALINE PHOSPHATASE 81 U/L (40-136); AMMONIA 18 UMOL/L (11-32); AMYLASE 73 U/L (25-125); BILIRUBIN,TOTAL 0.6 MG/DL (0.1-1.0); BUN/CREATININE RATIO 12; CALCIUM 10.1 MG/DL (8.5-10.1); CARBON DIOXIDE 24 MMOL/L (21-32); CHLORIDE 102 MMOL/L (98-107); CREATININE SERUM 0.81 MG/DL (0.60-1.30); GFR ESTIMATED > 60; GLUCOSE 102 MG/DL (70-105); LIPASE 53 U/L (8-78); MAGNESIUM 1.9 MG/DL (1.6-2.4); POTASSIUM 3.8 MMOL/L (3.6-5.0); SODIUM 139 MMOL/L (135-145)
[2019-09-22 10:23] LABS: ACETAMINOPHEN < 10 UG/ML (10-30)
[2019-09-22 10:24] LABS: PROTHROMBIN TIME PATIENT 13.3 SEC (12.2-14.7)
--- NOTE | 2019-09-22 10:44 | NUR ---
Provided pt and his mother compassionate presence and emotional support during wait time.
[2019-09-22 10:52] LABS: BILIRUBIN,URINE NEGATIVE (NEGATIVE); CLARITY,URINE CLEAR; COLOR,URINE YELLOW; GLUCOSE, URINE (UA) NEGATIVE (NEGATIVE); KETONES,URINE 1+ (NEGATIVE); LEUKOCYTE ESTERASE ,URINE NEGATIVE (NEGATIVE); NITRITE,URINE NEGATIVE (NEGATIVE); PH,URINE 6.5 (5-9); PROTEIN,URINE NEGATIVE (NEGATIVE)
[2019-09-22 10:58] LABS: BACTERIA,URINE TRACE /HPF; WBC,URINE RARE /HPF
--- NOTE | 2019-09-22 10:59 | Diagnostic Imaging Report ---
EXAMINATION: PA and lateral chest at 1053 hours. INDICATION: Pneumonia. FINDINGS: The heart size is within normal limits and stable when compared to 09/18/2019. The prior study did note an increased density in the right infrahilar region as well as minimal left basilar atelectasis. On this exam the right infrahilar region does seem better aerated and the atelectasis in the left lung base has resolved. The lungs are otherwise generally clear. There is no evidence for failure, pneumonia or for a pleural effusion. The mediastinum is not widened. The osseous structures are intact. IMPRESSION: 1. The appearance of the chest has improved since the prior exam as the right infrahilar region does seem better aerated. The left lung base is now clear. There is no evidence for an acute abnormality. 2. Reportedly, CT of the chest is pending for further evaluation. Dictated by: Dictated on workstation # [id number]
[2019-09-22] MEDS ORDERED: IOHEXOL 350 MG/ML 100 ML (OMNIPAQUE 350) VIAL IV ONE (11:00)
[2019-09-22] MEDS ORDERED: CATHETER FLUSH 10 ML SYR IV PRN (11:00)
[2019-09-22] MEDS ORDERED: NS 100 ML (IVPB) BAG IV ONE (11:00)
[2019-09-22] MEDS ORDERED: HOLD METFORMIN - RECEIVED CONTRAST 20 ML VIAL IV SCH (11:00)
[2019-09-22 11:06] LABS: AMPHETAMINE SCREEN, URINE NEGATIVE (NEGATIVE); BARBITURATE SCREEN URINE NEGATIVE (NEGATIVE); BENZODIAZEPINES SCREEN URINE NEGATIVE (NEGATIVE); CANNABINOID SCREEN, URINE NEGATIVE (NEGATIVE); COCAINE SCREEN URINE NEGATIVE (NEGATIVE); METHADONE STAT NEGATIVE (NEGATIVE); METHAMPHETAMINE SCREEN URINE S NEGATIVE (NEGATIVE); OPIATE SCREEN URINE NEGATIVE (NEGATIVE); OXYCODONE STAT NEGATIVE (NEGATIVE); PROPOXYPHENE STAT NEGATIVE (NEGATIVE); TRICYCLIC ANTIDEPRESSANTS SCRE NEGATIVE (NEGATIVE)
--- NOTE | 2019-09-22 11:39 | Diagnostic Imaging Report ---
PROCEDURE: CT chest, abdomen, and pelvis with contrast. TECHNIQUE: Multiple contiguous axial images were obtained through the chest, abdomen, and pelvis after the administration of intravenous contrast. Auto Exposure Controls were utilized during the CT exam to meet ALARA standards for radiation dose reduction. INDICATION: Vomiting, sepsis. COMPARISON: There are no prior studies available for comparison. FINDINGS: The images through the thorax show the heart size is within normal limits. The aorta is not abnormally dilated and there is no sign of dissection. The pulmonary is not fully opacified but there is no defect within the pulmonary arteries to indicate a pulmonary embolus. The lungs are generally clear. There is no evidence for failure, pneumonia or for pleural effusion. There is no parenchymal lung mass identified. There is no mediastinal or hilar adenopathy. The thyroid gland is generally unremarkable. There is a 3.4 x 5.5 x 6.6 cm area of diminished density occupying much of the mid portion of the spleen. This finding seems to persist on the delayed series. This has Hounsfield density units in the 25-35 range and this could represent a complex cyst or solid mass. A splenic infarct should also be considered. I would recommend that ultrasound be performed for further study. The spleen itself is not enlarged and there is no perisplenic fluid collection evident. The liver is homogeneous and not enlarged. The liver is of lower density than usually seen. This appearance does suggest fatty metamorphosis. The gallbladder, pancreas, adrenals, aorta and inferior vena cava show no sign of an acute abnormality. The stomach is partially filled with fluid and gas and difficult to assess. There is no pelvic mass or free fluid collection evident. The urinary bladder and prostate gland are grossly unremarkable. The appendix is not well-visualized. There are no indirect signs of acute appendicitis. The bone windows show evidence for fracture or for destructive lesion. IMPRESSION: 1. There is no evidence for an acute abnormality of the chest, abdomen, or pelvis. 2. The prominent area of diminished density in the spleen is of uncertain etiology. Considerations and recommendations as above. 3. These results were discussed with Dr. Silvia Garrido. Dictated by: Dictated on workstation # [id number]
[2019-09-22] MEDS ORDERED: HYOSCYAMINE 0.125 MG (LEVSIN) TAB PO ONE (12:00)
[2019-09-22] MEDS ORDERED: KETOROLAC 30 MG/ML VIAL IVP ONE (12:00)
--- NOTE | 2019-09-22 13:39 | ED GI ---
General Chief Complaint: Abdominal/GI Problems Stated Complaint: VOMITING/LIVER PAIN Nursing Triage Note: Pt was discharged from [facility] on Sunday 09/16 for sepsis and cirrhosis. Pt began vomiting Saturday night 09/19 and has been unable to keep food/water down since then. Pt was seen by [facility] yesterday and had labs drawn but has not received any results. Pt c/o burning abd pain today and states "entire body aguirre". Pt also c/o diarrhea. Sepsis Screen: No Definite Risk Source of Information: Patient, Family (MOM TRIES TO DO ALL TALKING FOR PT--GIVES CONVOLUTED INFORMATION), Old Records History of Present Illness Date Seen by Provider: Sep 22, 2019 Time Seen by Provider: 09:47 Initial Comments PT ARRIVES VIA POV FROM HOME WITH MOTHER C/O NAUSEA/VOMITING/DIARRHEA SINCE Saturday09/19/19 VOMITED X 3-4 TODAY, DIARRHEA X 3. NO HEMATEMESIS OR COFFEE-GROUND EMESIS, BUT HAS ONGOING BLACK / TARRY STOOLS FOR A LONG TIME--MANY MONTHS ALSO C/O "BURNING IN STOMACH, LIVER, KIDNEYS" "FEEL LIKE I'M ON FIRE" "WHOLE BODY FEELS LIKE IT'S ON FIRE" NO FEVER, BUT HAS HAD "CHILLS" STATES HE "CAN'T KEEP ANYTHING DOWN" SINCE SATURDAY STATES HE IS VOIDING A NORMAL AMOUNT STATES HE IS SLEEPING ALL THE TIME PT HAS EXTENSIVE HISTORY OF ALCOHOL ABUSE, AND HAS BEEN DX WITH CIRRHOSIS AND HEPATIC ENCEPHALOPATHY IN THE PAST PT HAD EGD AND COLONOSCOPY 03/2019--GASTRITIS, NO ACTIVE BLEEDING PT HAS BEEN PRESCRIBED GI MEDICATIONS BUT HAS NOT BEEN TAKING THEM PT ALSO HAS HISTORY OF SMOKING > 2 PPD, PLUS CHEWS A CAN OF TOBACCO A DAY ADDITIONALLY, PT USES THC AND COCAINE PT STATES HE WAS ADMITTED TO [facility]ST SATURDAY THROUGH [id number]/19-09/16/19--WAS BROUGHT HERE AFTER HAVING A SEIZURE, AND THEN TRANSFERRED TO [facility] BLOOD ALCOHOL LEVEL WAS > 400, PT / MOM STATES HE WAS TOLD HE WAS SEPTIC AND HAD PNEUMONIA IN BOTH LUNGS AT [facility] PT CLAIMS HE DID NOT LEAVE AMA, BUT DIDN'T WANT TO BE IN THE HOSPITAL ANYMORE, SO THEY LET HIM GO. STATES HE WAS TOLD THAT RX'S WERE CALLED TO HIS PHARMACY, BUT "NO ONE PICKED THEM UP" STATES HE HAS CHRONIC COUGH, CHEST PAIN AND SHORTNESS OF BREATH PT CONTINUES TO SMOKE > 2 PPD PT CLAIMS HE HAS NOT HAD ANY ALCOHOL SINCE LAST SATURDAY PT STATES HE HAS HISTORY OF SEIZURES--STATES HE HAS THEM WHEN HE STOPS DRINKING, BUT ALSO HAS THEM WHEN HE IS DRINKING ALSO. 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 PT STATES HE WAS SEEN AT [facility] YESTERDAY INSTRUCTED, AND REPORTS TO ME THAT HE DID NOT HAVE ANY TESTS DONE AND NO RX'S GIVEN ( TOLD RN HE DID HAVE LAB DONE, BUT NO RESULTS ) PT HAS HAD 10 VISITS HERE SINCE JANUARY 2019--ALL FOR SIMILAR COMPLAINTS AND ALL ALCOHOL-RELATED ISSUES AND SEIZURE RELATED ISSUES--ALL FELT TO BE DUE TO SUBSTANCE ABUSE HAS FREQUENTLY SIGNED OUT AMA PT HAS EXTENSIVE HISTORY OF NON-COMPLIANCE PCP: [facility], JAMMIE LU Allergies and Home Medications Allergies Coded Allergies: buspirone (Unverified Adverse Reaction, Severe, CAUSED SEIZURES, 03/17/19) Home Medications Albuterol Sulfate 6.7 Gm Hfa.aer.ad, 2 PUFF INH QID PRN for SHORTNESS OF BREATH, (Reported) Amlodipine Besylate 10 Mg Tablet, 10 MG PO DAILY, (Reported) LAST FILLED #30 04-29-19 Fluticasone/Salmeterol 1 Each Blst.w.dev, 1 PUFF IH BID, (Reported) LAST FILLED #60 05-20-19 Hyoscyamine Sulfate 0.125 Mg Tab.subl, 1-2 TAB SL Q4H Prescribed by: JACKELYN MCKENZIE on 09/22/19 141 Levofloxacin 750 Mg Tablet, 750 MG PO DAILY Prescribed by: SIA BLANKENSHIP on 09/18/19 141 Ondansetron 8 Mg Tab.rapdis, 8 MG PO Q6H Prescribed by: JACKELYN MCKENZIE on 09/22/19 141 Pantoprazole Sodium 40 Mg Tablet.dr, 40 MG PO DAILY, (Reported) LAST FILLED #30 04-14-19 Pantoprazole Sodium 40 Mg Tablet.dr, 40 MG PO DAILY Prescribed by: JACKELYN MCKENZIE on 09/22/191409 Sucralfate 1 Gm Tablet, 1 GM PO QIDACHS Prescribed by: JACKELYN MCKENZIE on 09/22/191409 Patient Home Medication List Home Medication List Reviewed: Yes Review of Systems Review of Systems Constitutional: chills; No dizziness; malaise, weakness EENTM: No Symptoms Reported Respiratory: See HPI, Cough, Shortness of Air Cardiovascular: See HPI, Chest Pain; Denies Edema, Denies Irregular Heart Rate, Denies Lightheadedness, Denies Palpitations, Denies Syncope Gastrointestinal: See HPI, Abdominal Pain, Diarrhea, Nausea, Poor Appetite, Poor Fluid Intake; Denies Rectal Bleeding; Vomiting Genitourinary: No Symptoms Reported Musculoskeletal: see HPI Skin: no symptoms reported Psychiatric/Neurological: No Symptoms Reported Endocrine: No Symptoms Reported Hematologic/Lymphatic: No Symptoms Reported Past Xpcpjja-Hcqyvy-Ifhpor Hx Past Med/Social Hx: Reviewed and Corrections made Patient Social History Alcohol Use: Regular Use (HEAVY DAILY USE) Number of Drinks Today: 0 Alcohol Beverage of Choice: Beer, Whiskey Recreational Drug Use: Yes (HX OF COCAINE AND THC USE) Drug of Choice: HX COCAINE AND THC USE Smoking Status: Current Everyday Smoker (> 2 PPD, PLUS CHEWS A CAN OF TOBACCO A DAY) Type Used: Cigarettes (> 2 PPD), Smokeless Tobacco (CHEWS A CAN OF TOBACCO A DAY ) 2nd Hand Smoke Exposure: Yes Recent Foreign Travel: No Contact w/Someone Who Travel: No Recent Infectious Disease Expo: No Recent Hopitalizations: No Immunizations Up To Date Tetanus Booster (TDap): More than 5yrs PED Vaccines UTD: No Date of Pneumonia Vaccine: Jul 26, 2014 Date of Influenza Vaccine: Jun 15, 2019 Seasonal Allergies Seasonal Allergies: Yes Past Medical History Surgeries: Yes (EGD 03/2019) Respiratory: Yes COPD, Emphysema Cardiac: Yes Hypertension Neurological: Yes Seizure Disorder Reproductive Disorders: No Sexually Transmitted Disease: No HIV/AIDS: No Genitourinary: No Gastrointestinal: Yes (GASTRITIS) Gastroesophageal Reflux, Liver Disease/Jaundice, Cirrhosis Musculoskeletal: No Endocrine: No HEENT: No Loss of Vision: Denies Hearing Impairment: Denies Cancer: No Psychosocial: Yes (POLYSUBSTANCE ABUSE. ) Sleep Difficulties, Anxiety, Suicide Attempts, Depression Integumentary: No Blood Disorders: No Adverse Reaction/Blood Tranf: No (N/A) Family Medical History Congestive heart failure 03 FATHER History of - disorder 03 MOTHER (SPINAL TUMORS) Myocardial infarction 03 FATHER Seizure disorder 09 BROTHER Heart Disease, Cancer, CAD Under 55 Years Old, CAD Over 55 Years Old, COPD, Diabetes, Hypertension, Renal Disease, Other Conditions/Hx Physical Exam Vital Signs Vital Signs - First Documented 09/22/19 09:17 Temp 36.9 Pulse 77 Resp 18 B/P (MAP) 118/79 (92) Pulse Ox 97 O2 Delivery Room Air Capillary Refill : Less Than 3 Seconds Height/Weight/BMI Height: 5'9.00" Weight: 205lbs. 2.0oz. 93.696325wz; 24.00 BMI Method:Stated General Appearance: WD/WN, no apparent distress, other (REEKS OF CIGARETTES) HEENT: PERRL/EOMI; No scleral icterus (R), No scleral icterus (L), No pale conjunctivae (R), No pale conjunctivae (L) Neck: normal inspection Respiratory: normal breath sounds, no respiratory distress, no accessory muscle use Cardiovascular: regular rate, rhythm, no edema, no JVD, no murmur Gastrointestinal: normal bowel sounds, soft, no organomegaly, no pulsatile mass; No distended, No guarding, No rebound; tenderness (DIFFUSE TENDERNESS); No hernia, No mass Extremities: normal inspection, no pedal edema, no calf tenderness, normal capillary refill Back: normal inspection, no CVA tenderness Neurologic/Psychiatric: field supervisor II-XII nml as tested, no motor/sensory deficits, alert, normal mood/affect, oriented x 3 Skin: normal color, warm/dry Focused Exam Lactate Level 09/22/19 09:35: Lactic Acid Level 0.98 Lactic Acid Level Laboratory Tests Test 09/22/19 09:35 Lactic Acid Level 0.98 MMOL/L (0.50-2.00) Progress/Results/Core Measures Results/Orders Lab Results Laboratory Tests Test 09/22/19 09:35 09/22/19 10:44 Range/Units White Blood Count 12.1 H 4.3-11.0 10^3/uL Red Blood Count 4.59 4.35-5.85 10^6/uL Hemoglobin 14.9 13.3-17.7 G/DL Hematocrit 44 40-54 % Mean Corpuscular Volume 96 80-99 FL Mean Corpuscular Hemoglobin 33 25-34 PG Mean Corpuscular Hemoglobin Concent 34 32-36 G/DL Red Cell Distribution Width 12.5 10.0-14.5 % Platelet Count 307 130-400 10^3/uL Mean Platelet Volume 9.8 7.4-10.4 FL Neutrophils (%) (Auto) 69 42-75 % Lymphocytes (%) (Auto) 19 12-44 % Monocytes (%) (Auto) 11 0-12 % Eosinophils (%) (Auto) 1 0-10 % Basophils (%) (Auto) 1 0-10 % Neutrophils # (Auto) 8.3 H 1.8-7.8 X 10^3 Lymphocytes # (Auto) 2.3 1.0-4.0 X 10^3 Monocytes # (Auto) 1.3 H 0.0-1.0 X 10^3 Eosinophils # (Auto) 0.2 0.0-0.3 10^3/uL Basophils # (Auto) 0.1 0.0-0.1 10^3/uL Prothrombin Time 13.3 12.2-14.7 SEC INR Comment 1.0 0.8-1.4 Activated Partial Thromboplast Time 34 24-35 SEC Sodium Level 139 135-145 MMOL/L Potassium Level 3.8 3.6-5.0 MMOL/L Chloride Level 102 98-107 MMOL/L Carbon Dioxide Level 24 21-32 MMOL/L Anion Gap 13 5-14 MMOL/L Blood Urea Nitrogen 10 7-18 MG/DL Creatinine 0.81 0.60-1.30 MG/DL Estimat Glomerular Filtration Rate > 60 BUN/Creatinine Ratio 12 Glucose Level 102 70-105 MG/DL Lactic Acid Level 0.98 0.50-2.00 MMOL/L Calcium Level 10.1 8.5-10.1 MG/DL Corrected Calcium 8.5-10.1 MG/DL Magnesium Level 1.9 1.6-2.4 MG/DL Total Bilirubin 0.6 0.1-1.0 MG/DL Aspartate Amino Transf (AST/SGOT) 29 5-34 U/L Alanine Aminotransferase (ALT/SGPT) 34 0-55 U/L Alkaline Phosphatase 81 40-136 U/L Ammonia 18 11-32 UMOL/L Total Protein 8.0 6.4-8.2 GM/DL Albumin 4.9 H 3.2-4.5 GM/DL Amylase Level 73 25-125 U/L Lipase 53 8-78 U/L Acetaminophen Level < 10 L 10-30 UG/ML Serum Alcohol < 10 <10 MG/DL Urine Color YELLOW Urine Clarity CLEAR Urine pH 6.5 5-9 Urine Specific [place] <=1.005 1.016-1.022 Urine Protein NEGATIVE NEGATIVE Urine Glucose (UA) NEGATIVE NEGATIVE Urine Ketones 1+ H NEGATIVE Urine Nitrite NEGATIVE NEGATIVE Urine Bilirubin NEGATIVE NEGATIVE Urine Urobilinogen 0.2 < = 1.0 MG/DL Urine Leukocyte Esterase NEGATIVE NEGATIVE Urine RBC (Auto) NEGATIVE NEGATIVE Urine RBC NONE /HPF Urine WBC RARE /HPF Urine Squamous Epithelial Cells NONE /HPF Urine Crystals NONE /LPF Urine Bacteria TRACE /HPF Urine Casts NONE /LPF Urine Mucus NEGATIVE /LPF Urine Culture Indicated NO Urine Opiates Screen NEGATIVE NEGATIVE Urine Oxycodone Screen NEGATIVE NEGATIVE Urine Methadone Screen NEGATIVE NEGATIVE Urine Propoxyphene Screen NEGATIVE NEGATIVE Urine Barbiturates Screen NEGATIVE NEGATIVE Ur Tricyclic Antidepressants Screen NEGATIVE NEGATIVE Urine Phencyclidine Screen NEGATIVE NEGATIVE Urine Amphetamines Screen NEGATIVE NEGATIVE Urine Methamphetamines Screen NEGATIVE NEGATIVE Urine Benzodiazepines Screen NEGATIVE NEGATIVE Urine Cocaine Screen NEGATIVE NEGATIVE Urine Cannabinoids Screen NEGATIVE NEGATIVE My Orders Orders - JACKELYN MCKENZIE DO Ed Iv/Invasive Line Start (09/22/19 09:47) Alcohol (09/22/19 09:47) Amylase (09/22/19 09:47) Cbc With Automated Diff (09/22/19 09:47) Comprehensive Metabolic Panel (09/22/19 09:47) Drug Screen Stat (Urine) (09/22/19 09:47) Lipase (09/22/19 09:47) Protime With Inr (09/22/19 09:47) Partial Thromboplastin Time (09/22/19 09:47) Ua Culture If Indicated (09/22/19 09:47) Acetaminophen (09/22/19 09:47) Ammonia (09/22/19 09:47) Lactic Acid Analyzer (09/22/19 09:47) Magnesium (09/22/19 09:47) Ed Iv/Invasive Line Start (09/22/19 09:47) Lactated Ringers (Lr 1000 Ml Iv Solution (09/22/19 09:47) Ondansetron Injection (Zofran Injectio (09/22/19 10:00) Pantoprazole Injection (Protonix Injecti (09/22/19 10:00) Chest Pa/Lat (2 View) (09/22/19 10:08) Ct Chest/Abdomen/Pelvis W (09/22/19 10:50) Iohexol Injection (Omnipaque 350 Mg/Ml 1 (09/22/19 11:00) Received Contrast (Hold Metformin- Contr (09/22/19 11:00) Sodium Chloride Flush (Catheter Flush Sy (09/22/19 11:00) Ns (Ivpb) (Sodium Chloride 0.9% Ivpb Bag (09/22/19 11:00) Us Abdomen Complete [id number] (09/22/19 11:48) Ketorolac Injection (Toradol Injection) (09/22/19 12:00) Hyoscyamine Sl Tablet (Levsin Sl Tablet) (09/22/19 12:00) Medications Given in ED Vital Signs/I&O 09/22/19 09/22/19 09:17 14:39 Temp 36.9 Pulse 77 77 Resp 18 18 B/P (MAP) 118/79 (92) 118/79 (92) Pulse Ox 97 97 O2 Delivery Room Air Blood Pressure Mean: 92 POS Progress Progress Note : Progress Note NO VOMITING OR DIARRHEA DURING ER STAY GIVEN ZOFRAN, PROTONIX, LEVSIN--NO COMPLAINTS OF NAUSEA GIVEN TORADOL FOR PAIN PT REMAINED CALM, AND COOPERATIVE FOR ENTIRE ER STAY PT TOLERATING ICE CHIPS PRIOR TO DISMISSAL Diagnostic Imaging Comments CXR--NO ACUTE PROCESS, IMPROVED APPEARANCE OF CHEST, PER RADIOLOGIST REPORT CT CHEST/ABDOMEN/PELVIS--NO EVIDENCE OF ACUTE ABNORMALITIES IN CHEST, 3.4 X 5.5 X 6.6 CM AREA OF DIMINISHED DENSITY IN MIDPORTION OF SPLEEN--COMPLEX CYST VS MASS VS SPLENIC INFARCT. NO SPLEEN ENLARGEMENT OR PERISPLENIC FLUID COLLECTION; FATTY LIVER. 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 Referrals: [facility] (PCP) Primary Care Physician YFN LU (Family) Primary Care Physician SERGEI ROBERTSON DO Patient Instructions: Acute Abdomen (Belly Pain), Adult (DC), Alcohol Use - When Is Drinking a Problem?, Alcohol Abuse and Alcoholism (DC), Gastritis (DC) Add. Discharge Instructions: CLEAR LIQUIDS--WATER, BROTH, JELLO, GATORADE WHEN YOUR NAUSEA IS BETTER, ADD BRATS DIET TO CLEAR LIQUIDS--BANANAS, RICE, APPLESAUCE, TOAST, SALTINES NO ALCOHOL FOLLOW UP WITH DR. ROBERTSON THIS WEEK FOR FURTHER CARE FOLLOW UP WITH [facility] THIS WEEK FOR FURTHER CARE All discharge instructions reviewed with patient and/or family. Voiced understanding. Scripts Hyoscyamine Sulfate (Levsin-Sl) 0.125 Mg Tab.subl 1-2 TAB SL Q4H for Abdominal Pain, #15 TAB Prov: JACKELYN MCKENZIE DO 09/22/19 Sucralfate (Carafate) 1 Gm Tablet 1 GM PO QIDACHS, #60 TAB Prov: JACKELYN MCKENZIE DO 09/22/19 Pantoprazole Sodium (Protonix) 40 Mg Tablet.dr 40 MG PO DAILY, #15 TAB Prov: JACKELYN MCKENZIE DO 09/22/19 Ondansetron (Ondansetron Odt) 8 Mg Tab.rapdis 8 MG PO Q6H for Nausea/Vomiting, #10 TAB Prov: JACKELYN MCKENZIE DO 09/22/19 JACKELYN MCKENZIE DO Sep 22, 2019 13:39 POS
--- NOTE | 2019-09-22 13:51 | Diagnostic Imaging Report ---
INDICATION: Abdominal pain. TECHNIQUE: Multiple real-time grayscale images were obtained of the abdomen in various projections. FINDINGS: The liver is normal in size without focal lesions. There is no biliary ductal dilatation. The common bile duct measures 4 mm. There is no cholelithiasis, gallbladder wall thickening, or pericholecystic fluid. Pancreas is not well seen due to bowel gas. There is a nonspecific heterogeneous area within the spleen measuring 4.6 x 2.9 x 3.7 cm. The aorta is nonaneurysmal. The IVC is patent. Both kidneys are normal in appearance. There is no ascites. IMPRESSION: Nonspecific heterogeneous area within the spleen suspect for splenic infarct. Recommend clinical correlation and follow-up imaging as clinically warranted. Dictated by: Dictated on workstation # [id number]
[2019-09-22] MEDS ORDERED: HYOS0.1283 SL (14:10)
[2019-09-22] MEDS ORDERED: SUCR1TAB36 PO (14:10)
[2019-09-22] MEDS ORDERED: ONDA8TAB13 PO (14:10)
[2019-09-22] MEDS ORDERED: PANT40TA2 PO (14:10)
[2019-09-22 14:39] VITALS: BP 118/79
== END 2019-09-22 14:39 | disposition home or self-care (01) ==
LOC: EDUNIT# 08:52 → ER 08:54
DX: F10.20 Alcohol dependence, uncomplicated (principal); G89.29 Other chronic pain; R10.84 Generalized abdominal pain; R11.2 Nausea with vomiting, unspecified; R19.7 Diarrhea, unspecified; I10 Essential (primary) hypertension; G40.909 Epilepsy, unspecified, not intractable, without status epilepticus; J43.9 Emphysema, unspecified; K21.9 Gastro-esophageal reflux disease without esophagitis; F41.9 Anxiety disorder, unspecified; F32.9 Major depressive disorder, single episode, unspecified; F17.210 Nicotine dependence, cigarettes, uncomplicated; F17.220 Nicotine dependence, chewing tobacco, uncomplicated; Z88.8 Allergy status to other drugs, medicaments and biological substances; Z79.51 Long term (current) use of inhaled steroids; Z82.49 Family history of ischemic heart disease and other diseases of the circulatory system; Z87.19 Personal history of other diseases of the digestive system; Y90.0 Blood alcohol level of less than 20 mg/100 ml
CPT/HCPCS: 36415; 71046; 71260; 74177; 76700; 80053; 80306; 80320; 80329; 81000; 82140; 82150; 83605; 83690; 83735; 85025; 85610; 85730; 96374; 96375

== ENCOUNTER 2019-09-28 12:16 | Emergency (ER) | payer SELFPAY ==
[~2019-09-28] VITALS: Ht 175 cm; Wt 77.7 kg
[~2019-09-28 12:16] MED LIST changes: +HYOS0.1283 SL; +ONDA8TAB13 PO; +SUCR1TAB36 PO
[2019-09-28] MEDS ORDERED: FAMOTIDINE 20MG/2ML IV (PEPCID) IV STA (13:00)
[2019-09-28] MEDS ORDERED: fentaNYL INJECTION 100 MCG/2 ML AMP IVP STA (13:00)
[2019-09-28] MEDS ORDERED: LACTATED RINGERS 1,000 ML IV ONE (13:00)
[2019-09-28 13:09] LABS: BASOPHILS # (AUTO) 0.2 10^3/uL (0.0-0.1); BASOPHILS % (AUTO) 2 % (0-10); EOSINOPHILS # (AUTO) 0.2 10^3/uL (0.0-0.3); EOSINOPHILS % (AUTO) 2 % (0-10); HEMATOCRIT 41 % (40-54); HEMOGLOBIN 14.4 G/DL (13.3-17.7); LYMPHOCYTES # (AUTO) 2.7 X 10^3 (1.0-4.0); LYMPHOCYTES % (AUTO) 25 % (12-44); MEAN CORPUSCULAR HEMOGLOBIN 34 PG (25-34); MEAN CORPUSCULAR HGB CONC 35 G/DL (32-36); MEAN CORPUSCULAR VOLUME 96 FL (80-99); MEAN PLATELET VOLUME 10.4 FL (7.4-10.4); MONOCYTES # (AUTO) 1.3 X 10^3 (0.0-1.0); MONOCYTES % (AUTO) 12 % (0-12); NEUTROPHILS # (AUTO) 6.5 X 10^3 (1.8-7.8); NEUTROPHILS % (AUTO) 61 % (42-75); PLATELET COUNT 339 10^3/uL (130-400); RED CELL DISTRIBUTION WIDTH 13.3 % (10.0-14.5); WHITE BLOOD COUNT 10.8 10^3/uL (4.3-11.0)
--- NOTE | 2019-09-28 13:23 | ED Abdominal Pain ---
General Chief Complaint: Abdominal/GI Problems Stated Complaint: ABD PAIN/VOMITING Nursing Triage Note: TO TRIAGE FROM [facility]. COMPLAINS OF ABD PAIN, N/V/D SINCE SAT AFTER EATING A SUBWAY SANDWICH ON SAT. Sepsis Screen: No Definite Risk Source of Information: Patient Exam Limitations: No Limitations History of Present Illness Date Seen by Provider: Sep 28, 2019 Time Seen by Provider: 12:55 Initial Comments Here with report of persistent abdominal pain that has been ongoing over the last couple of months but worse for the last several days. He is a known alcoholic and does admit to still drinking but he is trying to quit. He did drink a sixpack of beer 2 nights ago. Followed up with [facility] today and they sent him here for further evaluation due to the persistent pain. He apparently recently had upper endoscopy which did not show any significant findings per the patient and family. He did a colonoscopy as well in March of this year that did not show any significant findings. Pain is on the left side and radiates to the right. Does have previous CT scan done earlier this month that does show splenic infarct. Pain is worse now. Still has occasional blood per rectum which he's had worked up before this year. Timing/Duration: 1 Week, Getting Worse, Other (has had some pain chronically over the last 1-2 months.) Severity/Quality: Moderate, Aching Location: LUQ Radiation: RUQ, Epigastric Activities at Onset: None Modifying Factors: Worsens With Eating; Improves With Other (alcohol consumption) Associated Symptoms: No Back Pain, No Chest Pain, No Fever/Chills; Fatigue, Heartburn, Nausea/Vomiting; No Shortness of Air, No Swelling/Mass in Abdomen; Weakness Allergies and Home Medications Allergies Coded Allergies: buspirone (Unverified Adverse Reaction, Severe, CAUSED SEIZURES, 03/17/19) Home Medications Albuterol Sulfate 6.7 Gm Hfa.aer.ad, 2 PUFF INH QID PRN for SHORTNESS OF BREATH, (Reported) Amlodipine Besylate 10 Mg Tablet, 10 MG PO DAILY, (Reported) LAST FILLED #30 04-29-19 Fluticasone/Salmeterol 1 Each Blst.w.dev, 1 PUFF IH BID, (Reported) LAST FILLED #60 05-20-19 Hyoscyamine Sulfate 0.125 Mg Tab.subl, 1-2 TAB SL Q4H Prescribed by: JACKELYN MCKENZIE on 09/22/191409 Ondansetron 8 Mg Tab.rapdis, 8 MG PO Q6H Prescribed by: JACKELYN MCKENZIE on 09/22/19 141 Pantoprazole Sodium 40 Mg Tablet.dr, 40 MG PO DAILY, (Reported) LAST FILLED #30 04-14-19 Pantoprazole Sodium 40 Mg Tablet.dr, 40 MG PO DAILY Prescribed by: JACKELYN MCKENZIE on 09/22/191409 Sucralfate 1 Gm Tablet, 1 GM PO QIDACHS Prescribed by: JACKELYN MCKENZIE on 09/22/191409 Patient Home Medication List Home Medication List Reviewed: Yes Review of Systems Review of Systems Constitutional: see HPI; No fever EENTM: No Symptoms Reported Respiratory: Cough; Denies Shortness of Air Cardiovascular: Denies Chest Pain, Denies Edema Gastrointestinal: Abdominal Pain, Rectal Bleeding, Vomiting Genitourinary: No Symptoms Reported Musculoskeletal: no symptoms reported Skin: no symptoms reported Psychiatric/Neurological: See HPI, Emotional Problems; Denies Headache Endocrine: No Symptoms Reported Hematologic/Lymphatic: No Symptoms Reported Past Clgajnb-Dkwbfl-Jdyzoe Hx Past Med/Social Hx: Reviewed Nursing Past Med/Soc Hx Patient Social History Alcohol Use: Occasionally Uses Number of Drinks Today: GG Alcohol Beverage of Choice: Beer, Whiskey Recreational Drug Use: No Drug of Choice: HX COCAINE AND THC USE Type Used: Cigarettes, Smokeless Tobacco Former Smoker, Quit: Mar 17, 2017 2nd Hand Smoke Exposure: Yes Recent Foreign Travel: No Contact w/Someone Who Travel: No Recent Infectious Disease Expo: No Recent Hopitalizations: No Immunizations Up To Date Tetanus Booster (TDap): More than 5yrs PED Vaccines UTD: No Date of Pneumonia Vaccine: Jul 26, 2014 Date of Influenza Vaccine: Jun 15, 2019 Seasonal Allergies Seasonal Allergies: Yes Past Medical History Surgeries: Yes (EGD 03/2019) Respiratory: Yes COPD, Emphysema Cardiac: Yes Hypertension Neurological: Yes Seizure Disorder Reproductive Disorders: No Sexually Transmitted Disease: No HIV/AIDS: No Genitourinary: No Gastrointestinal: Yes (GASTRITIS) Gastroesophageal Reflux, Liver Disease/Jaundice, Cirrhosis Musculoskeletal: No Endocrine: No HEENT: No Loss of Vision: Denies Hearing Impairment: Denies Cancer: No Psychosocial: Yes (POLYSUBSTANCE ABUSE. ) Sleep Difficulties, Anxiety, Suicide Attempts, Depression Integumentary: No Blood Disorders: No Adverse Reaction/Blood Tranf: No (N/A) Family Medical History Reviewed Nursing Family Hx Congestive heart failure 03 FATHER History of - disorder 03 MOTHER (SPINAL TUMORS) Myocardial infarction 03 FATHER Seizure disorder 09 BROTHER Heart Disease, Cancer, CAD Under 55 Years Old, CAD Over 55 Years Old, COPD, Diabetes, Hypertension, Renal Disease, Other Conditions/Hx Physical Exam Vital Signs Vital Signs - First Documented 09/28/19 12:27 Temp 36.8 Pulse 81 Resp 16 B/P (MAP) 145/91 (109) Pulse Ox 98 O2 Delivery Room Air Capillary Refill : Less Than 3 Seconds Height/Weight/BMI Height: 5'9.00" Weight: 205lbs. 2.0oz. 93.955401uc; 25.00 BMI Method:Stated General Appearance: WD/WN, mild distress HEENT: PERRL/EOMI, pharynx normal; No scleral icterus (R), No scleral icterus (L) Neck: full range of motion, supple Respiratory: lungs clear, normal breath sounds Cardiovascular: regular rate, rhythm, no murmur Gastrointestinal: guarding (especially in the upper quadrants and epigastric area), tenderness, other (unable to determine hepatosplenomegaly due to pain on palpation) Extremities: normal range of motion, no pedal edema, no calf tenderness Back: normal inspection, no CVA tenderness, no vertebral tenderness Neurologic/Psychiatric: alert, oriented x 3 Skin: normal color, warm/dry Progress/Results/Core Measures Results/Orders Lab Results Laboratory Tests Test 09/28/19 12:42 09/28/19 14:05 Range/Units White Blood Count 10.8 4.3-11.0 10^3/uL Red Blood Count 4.30 L 4.35-5.85 10^6/uL Hemoglobin 14.4 13.3-17.7 G/DL Hematocrit 41 40-54 % Mean Corpuscular Volume 96 80-99 FL Mean Corpuscular Hemoglobin 34 25-34 PG Mean Corpuscular Hemoglobin Concent 35 32-36 G/DL Red Cell Distribution Width 13.3 10.0-14.5 % Platelet Count 339 130-400 10^3/uL Mean Platelet Volume 10.4 7.4-10.4 FL Neutrophils (%) (Auto) 61 42-75 % Lymphocytes (%) (Auto) 25 12-44 % Monocytes (%) (Auto) 12 0-12 % Eosinophils (%) (Auto) 2 0-10 % Basophils (%) (Auto) 2 0-10 % Neutrophils # (Auto) 6.5 1.8-7.8 X 10^3 Lymphocytes # (Auto) 2.7 1.0-4.0 X 10^3 Monocytes # (Auto) 1.3 H 0.0-1.0 X 10^3 Eosinophils # (Auto) 0.2 0.0-0.3 10^3/uL Basophils # (Auto) 0.2 H 0.0-0.1 10^3/uL Sodium Level 141 135-145 MMOL/L Potassium Level 3.8 3.6-5.0 MMOL/L Chloride Level 107 98-107 MMOL/L Carbon Dioxide Level 26 21-32 MMOL/L Anion Gap 8 5-14 MMOL/L Blood Urea Nitrogen 8 7-18 MG/DL Creatinine 0.84 0.60-1.30 MG/DL Estimat Glomerular Filtration Rate > 60 BUN/Creatinine Ratio 10 Glucose Level 104 70-105 MG/DL Calcium Level 9.5 8.5-10.1 MG/DL Corrected Calcium 9.2 8.5-10.1 MG/DL Magnesium Level 2.2 1.6-2.4 MG/DL Total Bilirubin 0.4 0.1-1.0 MG/DL Aspartate Amino Transf (AST/SGOT) 19 5-34 U/L Alanine Aminotransferase (ALT/SGPT) 17 0-55 U/L Alkaline Phosphatase 77 40-136 U/L C-Reactive Protein High Sensitivity 0.36 0.00-0.50 MG/DL Total Protein 7.2 6.4-8.2 GM/DL Albumin 4.4 3.2-4.5 GM/DL Lipase 49 8-78 U/L Salicylates Level < 5.0 L 5.0-20.0 MG/DL Acetaminophen Level < 10 L 10-30 UG/ML Serum Alcohol < 10 <10 MG/DL Urine Color YELLOW Urine Clarity CLEAR Urine pH 6.5 5-9 Urine Specific [place] <=1.005 1.016-1.022 Urine Protein NEGATIVE NEGATIVE Urine Glucose (UA) NEGATIVE NEGATIVE Urine Ketones NEGATIVE NEGATIVE Urine Nitrite NEGATIVE NEGATIVE Urine Bilirubin NEGATIVE NEGATIVE Urine Urobilinogen 0.2 < = 1.0 MG/DL Urine Leukocyte Esterase NEGATIVE NEGATIVE Urine RBC (Auto) NEGATIVE NEGATIVE Urine RBC NONE /HPF Urine WBC NONE /HPF Urine Squamous Epithelial Cells RARE /HPF Urine Crystals NONE /LPF Urine Bacteria NEGATIVE /HPF Urine Casts NONE /LPF Urine Mucus NEGATIVE /LPF Urine Culture Indicated NO Urine Opiates Screen NEGATIVE NEGATIVE Urine Oxycodone Screen NEGATIVE NEGATIVE Urine Methadone Screen NEGATIVE NEGATIVE Urine Propoxyphene Screen NEGATIVE NEGATIVE Urine Barbiturates Screen NEGATIVE NEGATIVE Ur Tricyclic Antidepressants Screen NEGATIVE NEGATIVE Urine Phencyclidine Screen NEGATIVE NEGATIVE Urine Amphetamines Screen NEGATIVE NEGATIVE Urine Methamphetamines Screen NEGATIVE NEGATIVE Urine Benzodiazepines Screen NEGATIVE NEGATIVE Urine Cocaine Screen NEGATIVE NEGATIVE Urine Cannabinoids Screen NEGATIVE NEGATIVE My Orders Orders - CHUCK BROOKS MD Acetaminophen (09/28/19 13:00) Alcohol (09/28/19 13:00) Cbc With Automated Diff (09/28/19 13:00) Comprehensive Metabolic Panel (09/28/19 13:00) Hs C Reactive Protein (09/28/19 13:00) Drug Screen Stat (Urine) (09/28/19 13:00) Lipase (09/28/19 13:00) Magnesium (09/28/19 13:00) Salicylate (09/28/19 13:00) Ua Culture If Indicated (09/28/19 13:00) Ed Iv/Invasive Line Start (09/28/19 13:00) Lactated Ringers (Lr 1000 Ml Iv Solution (09/28/19 13:00) Fentanyl Injection (Sublimaze Injection (09/28/19 13:00) Chest 1 View, Ap/Pa Only (09/28/19 13:00) Famotidine Injection (Pepcid Injection) (09/28/19 13:00) Ct Abdomen/Pelvis W (09/28/19 13:56) Iohexol Injection (Omnipaque 350 Mg/Ml 1 (09/28/19 14:15) Received Contrast (Hold Metformin- Contr (09/28/19 14:15) Ns (Ivpb) (Sodium Chloride 0.9% Ivpb Bag (09/28/19 14:15) Lorazepam Injection (Ativan Injection) (09/28/19 15:45) Pantoprazole Injection (Protonix Injecti (09/28/19 15:45) Ketorolac Injection (Toradol Injection) (09/28/19 16:29) Medications Given in ED Current Medications Medications Dose Ordered Sig/Gallito Route Start Time Stop Time Status Last Admin Dose Admin Iohexol 100 ml ONCE ONCE IV 09/28/19 14:15 09/28/19 14:16 DC 09/28/19 14:25 100 ML Lactated Ringer's 1,000 ml @ 0 mls/hr Q0M ONCE IV 09/28/19 13:00 09/28/19 13:04 DC 09/28/19 13:13 0 MLS/HR Lorazepam 0.5 mg ONCE ONCE IVP 09/28/19 15:45 09/28/19 15:46 DC 09/28/19 16:26 0.5 MG Pantoprazole 40 mg ONCE ONCE IV 09/28/19 15:45 09/28/19 15:46 DC 09/28/19 16:26 40 MG Sodium Chloride 100 ml ONCE ONCE IV 09/28/19 14:15 09/28/19 14:16 DC 09/28/19 14:25 100 ML Vital Signs/I&O 09/28/19 12:27 Temp 36.8 Pulse 81 Resp 16 B/P (MAP) 145/91 (109) Pulse Ox 98 O2 Delivery Room Air Blood Pressure Mean: 109 POS Progress Progress Note : Progress Note Seen and evaluated. IV, labs, UA, LR 1 L bolus and fentanyl 50 g IV ordered. Pepcid 20 mg IV ordered. Monitor patient. 1650: Patient has received Protonix 40 mg IV and Ativan 0.5 mg IV as well as ketorolac 30 mg IV. I do believe the Ativan has been the most beneficial and I do believe he is withdrawing from alcohol. He is seeking help with [facility] addiction treatment services. He has a long and protracted history of alcohol abuse and addiction and is currently trying to get and remain clean. He can follow-up with the addiction treatment services in the morning. I will write short course of Ativan for significant withdrawal symptoms until he can get to [facility] and will send a copy of the chart over to them. I have discussed the splenic infarct with Dr. Robertson. This is something that we would just watch at this point with follow-up CT scan. Dr. Robertson would like to see him and I did discuss this with the patient. Patient would like to see Dr. Robertson as well. I will send a copy of the chart and Dr. Robertson as well. Since he is doing better currently, we will go ahead and discharge him home now. Discharged home with return precautions. Patient verbalize understanding instructions and agreement with plan. Diagnostic Imaging Diagonstic Imaging: Xray Plain Films/CT/US/NM/MRI: chest Comments [facility] POS [place], [place] POS NAME: JOSE FANG [facility] REC#: [id number] PT STATUS: REG ER : 1980 PHYSICIAN: CHUCK BROOKS MD ADMIT DATE: 09/28/19/ER Draft POSDate of Exam:09/28/19 CHEST 1 VIEW, AP/PA ONLY INDICATION: Abdominal pain, vomiting. COMPARISON: 09/22/2019. TECHNIQUE: A single radiograph of the chest is dated 09/28/2019. FINDINGS: The cardiac silhouette is within normal limits in size. No significant pulmonary vascular congestion. The lungs are clear. No pleural effusion. No pneumothorax. No acute osseous abnormality. IMPRESSION: No acute cardiopulmonary abnormality. Dictated on workstation # [id number] Dict: 09/28/19 1359 Trans: 09/28/19 1402 [id number] Interpreted by: JEM FLORES MD Electronically signed by: Diagonstic Imaging: CT Plain Films/CT/US/NM/MRI: abdomen, pelvis [facility] [place], [place] POS NAME: JOSE FANG [facility] REC#: [id number] PT STATUS: REG ER : 1980 PHYSICIAN: CHUCK BROOKS MD ADMIT DATE: 09/28/19/ER Draft POSDate of Exam:09/28/19 CHEST 1 VIEW, AP/PA ONLY INDICATION: Abdominal pain, vomiting. COMPARISON: 09/22/2019. TECHNIQUE: A single radiograph of the chest is dated 09/28/2019. FINDINGS: The cardiac silhouette is within normal limits in size. No significant pulmonary vascular congestion. The lungs are clear. No pleural effusion. No pneumothorax. No acute osseous abnormality. IMPRESSION: No acute cardiopulmonary abnormality. Dictated on workstation # [id number] Dict: 09/28/19 1359 Trans: 09/28/19 1402 [id number] Interpreted by: JEM FLORES MD Electronically signed by: Departure Impression Primary Impression: Alcohol withdrawal seizure Qualified Codes: F10.239 - Alcohol dependence with withdrawal, unspecified; R56.9 - Unspecified convulsions Additional Impression: Upper abdominal pain Disposition: 01 HOME, SELF-CARE Condition: Stable Departure-Patient Inst. Decision time for Depature: 16:54 Referrals: [facility]/ (PCP) Primary Care Physician [facility] (Family) Primary Care Physician Patient Instructions: Acute Abdomen (Belly Pain), Adult (DC), Alcohol Withdrawal, Alcohol Abuse and Alcoholism (DC) Add. Discharge Instructions: All discharge instructions reviewed with patient and/or family. Voiced understanding. Take medications as directed. Follow-up with [facility] addiction treatment services in the morning for recheck and further evaluation. Return for worse pain, fever, vomiting, weakness, breathing problems or other concerns as needed. You need to follow-up with Dr. Robertson regarding the abdominal pain for recheck and further evaluation. You should initiate the generic omeprazole 20 mg tablets 1 daily for the next 2 weeks and may extend that up to 6 weeks. You may also take Pepcid or the generic famotidine 20 mg tablets once or twice daily as needed for stomach upset. Drink plenty of fluids. Do not drink alcohol. Eat a light, bland diet. Scripts Lorazepam (Lorazepam) 0.5 Mg Tablet 0.5 MG PO Q6H PRN for ANXIETY, #5 TAB 0 Refills Prov: CHUCK BROOKS MD 09/28/19 Copy Copies To 1: LOGAN LOPEZ MD Copies To 2: SERGEI ROBERTSON DO CHUCK BROOKS MD Sep 28, 2019 13:23 POS
[2019-09-28 13:26] LABS: ALANINE AMINOTRANSFERASE 17 U/L (0-55); ALBUMIN 4.4 GM/DL (3.2-4.5); ALKALINE PHOSPHATASE 77 U/L (40-136); BILIRUBIN,TOTAL 0.4 MG/DL (0.1-1.0); BUN/CREATININE RATIO 10; CALCIUM 9.5 MG/DL (8.5-10.1); CARBON DIOXIDE 26 MMOL/L (21-32); CHLORIDE 107 MMOL/L (98-107); CREATININE SERUM 0.84 MG/DL (0.60-1.30); GFR ESTIMATED > 60; GLUCOSE 104 MG/DL (70-105); LIPASE 49 U/L (8-78); MAGNESIUM 2.2 MG/DL (1.6-2.4); POTASSIUM 3.8 MMOL/L (3.6-5.0); SALICYLATE < 5.0 MG/DL (5.0-20.0); SODIUM 141 MMOL/L (135-145); TOTAL PROTEIN 7.2 GM/DL (6.4-8.2)
[2019-09-28 13:30] LABS: ACETAMINOPHEN < 10 UG/ML (10-30)
--- NOTE | 2019-09-28 13:30 | NUR ---
X RAY DONE AT BEDSIDE
--- NOTE | 2019-09-28 14:03 | Diagnostic Imaging Report ---
INDICATION: Abdominal pain, vomiting. COMPARISON: 09/22/2019. TECHNIQUE: A single radiograph of the chest is dated 09/28/2019. FINDINGS: The cardiac silhouette is within normal limits in size. No significant pulmonary vascular congestion. The lungs are clear. No pleural effusion. No pneumothorax. No acute osseous abnormality. IMPRESSION: No acute cardiopulmonary abnormality. Dictated by: Dictated on workstation # [id number]
[2019-09-28] MEDS ORDERED: NS 100 ML (IVPB) BAG IV ONE (14:15)
[2019-09-28] MEDS ORDERED: IOHEXOL 350 MG/ML 100 ML (OMNIPAQUE 350) VIAL IV ONE (14:15)
[2019-09-28] MEDS ORDERED: HOLD METFORMIN - RECEIVED CONTRAST 20 ML VIAL IV SCH (14:15)
[2019-09-28 14:24] LABS: BILIRUBIN,URINE NEGATIVE (NEGATIVE); CLARITY,URINE CLEAR; COLOR,URINE YELLOW; GLUCOSE, URINE (UA) NEGATIVE (NEGATIVE); KETONES,URINE NEGATIVE (NEGATIVE); LEUKOCYTE ESTERASE ,URINE NEGATIVE (NEGATIVE); NITRITE,URINE NEGATIVE (NEGATIVE); PH,URINE 6.5 (5-9); PROTEIN,URINE NEGATIVE (NEGATIVE)
[2019-09-28 14:31] LABS: BACTERIA,URINE NEGATIVE /HPF; SQUAMOUS EPITHELIAL CELL,UR RARE /HPF
[2019-09-28 14:37] LABS: AMPHETAMINE SCREEN, URINE NEGATIVE (NEGATIVE); BARBITURATE SCREEN URINE NEGATIVE (NEGATIVE); BENZODIAZEPINES SCREEN URINE NEGATIVE (NEGATIVE); CANNABINOID SCREEN, URINE NEGATIVE (NEGATIVE); COCAINE SCREEN URINE NEGATIVE (NEGATIVE); METHADONE STAT NEGATIVE (NEGATIVE); METHAMPHETAMINE SCREEN URINE S NEGATIVE (NEGATIVE); OPIATE SCREEN URINE NEGATIVE (NEGATIVE); OXYCODONE STAT NEGATIVE (NEGATIVE); PROPOXYPHENE STAT NEGATIVE (NEGATIVE); TRICYCLIC ANTIDEPRESSANTS SCRE NEGATIVE (NEGATIVE)
--- NOTE | 2019-09-28 14:41 | Diagnostic Imaging Report ---
PROCEDURE: CT abdomen and pelvis with contrast. TECHNIQUE: Multiple contiguous axial images were obtained through the abdomen and pelvis after administration of intravenous contrast. Auto Exposure Controls were utilized during the CT exam to meet ALARA standards for radiation dose reduction. INDICATION: Upper abdominal pain with nausea, vomiting and diarrhea. COMPARISON: Correlation is made with prior CT from 09/22/2019. FINDINGS: The lung bases are clear. No discrete liver mass is identified. Gallbladder is unremarkable. No biliary duct dilatation is seen. The pancreas is unremarkable. Previously noted area of low-density within the spleen appears similar to prior exam and again may represent a splenic infarct. No adrenal mass is detected. Kidneys are unremarkable. Aorta is non-aneurysmal. No central retroperitoneal or mesenteric lymphadenopathy is seen. The small and large bowel loops are normal caliber. There is no obstruction. No free fluid or fluid collection is identified. Bladder and prostate are unremarkable. No inflammatory process is detected. IMPRESSION: Persistent area of low-density within the spleen, similar to examination from 6 days earlier. Considerations remain the same as prior report. No new abnormality is detected. Dictated by: Dictated on workstation # [id number]
--- NOTE | 2019-09-28 15:08 | NUR ---
JAH CON'T TO HAVE PAIN NOTIFED.
[2019-09-28] MEDS ORDERED: PANTOPRAZOLE 40 MG (PROTONIX) VIAL IV ONE (15:45)
[2019-09-28] MEDS ORDERED: LORazepam INJ 2 MG/ML (ATIVAN) VIAL IVP ONE (15:45)
[2019-09-28] MEDS ORDERED: KETOROLAC 30 MG/ML VIAL IVP STA (16:29)
[2019-09-28] MEDS ORDERED: LORA0.5T PO (16:56)
[2019-09-28 17:09] VITALS: BP 144/96
== END 2019-09-28 17:03 | disposition home or self-care (01) ==
LOC: EDUNIT# 12:16 → ER 12:17
DX: F10.239 Alcohol dependence with withdrawal, unspecified (principal); G40.89 Other seizures; R10.12 Left upper quadrant pain; J43.9 Emphysema, unspecified; I10 Essential (primary) hypertension; K21.9 Gastro-esophageal reflux disease without esophagitis; F41.9 Anxiety disorder, unspecified; F32.9 Major depressive disorder, single episode, unspecified; Z91.5 Personal history of self-harm; Z88.8 Allergy status to other drugs, medicaments and biological substances; Z79.51 Long term (current) use of inhaled steroids; Z87.891 Personal history of nicotine dependence; Z77.22 Contact with and (suspected) exposure to environmental tobacco smoke (acute) (chronic); Z82.49 Family history of ischemic heart disease and other diseases of the circulatory system
CPT/HCPCS: 36415; 71045; 74177; 80053; 80306; 80320; 80329; 81000; 83690; 83735; 85025; 86141

== ENCOUNTER 2019-10-12 15:02 | Emergency (ER) | payer SELFPAY ==
[~2019-10-12] VITALS: Ht 175 cm; Wt 77.7 kg
[~2019-10-12 15:02] MED LIST changes: +LORA0.5T PO
[2019-10-12] MEDS ORDERED: THIAMINE INJECTION 100 MG, FOLIC ACID INJECTION 1 MG, VITAMIN MULTI INJECTION 10 ML, MA... IV STA ×5 (15:20)
[2019-10-12 15:33] LABS: BASOPHILS # (AUTO) 0.1 10^3/uL (0.0-0.1); BASOPHILS % (AUTO) 1 % (0-10); BILIRUBIN,URINE NEGATIVE (NEGATIVE); CLARITY,URINE CLEAR; COLOR,URINE YELLOW; EOSINOPHILS % (AUTO) 0 % (0-10); GLUCOSE, URINE (UA) NEGATIVE (NEGATIVE); HEMATOCRIT 46 % (40-54); HEMOGLOBIN 15.1 G/DL (13.3-17.7); KETONES,URINE NEGATIVE (NEGATIVE); LEUKOCYTE ESTERASE ,URINE NEGATIVE (NEGATIVE); LYMPHOCYTES # (AUTO) 2.5 X 10^3 (1.0-4.0); LYMPHOCYTES % (AUTO) 17 % (12-44); MEAN CORPUSCULAR HEMOGLOBIN 32 PG (25-34); MEAN CORPUSCULAR HGB CONC 33 G/DL (32-36); MEAN CORPUSCULAR VOLUME 97 FL (80-99); MEAN PLATELET VOLUME 9.4 FL (7.4-10.4); MONOCYTES # (AUTO) 1.2 X 10^3 (0.0-1.0); MONOCYTES % (AUTO) 8 % (0-12); NEUTROPHILS % (AUTO) 74 % (42-75); NITRITE,URINE NEGATIVE (NEGATIVE); PLATELET COUNT 287 10^3/uL (130-400); PROTEIN,URINE NEGATIVE (NEGATIVE); RED CELL DISTRIBUTION WIDTH 13.6 % (10.0-14.5); WHITE BLOOD COUNT 14.8 10^3/uL (4.3-11.0)
[2019-10-12 15:47] LABS: AMPHETAMINE SCREEN, URINE NEGATIVE (NEGATIVE); BACTERIA,URINE NEGATIVE /HPF; BARBITURATE SCREEN URINE NEGATIVE (NEGATIVE); BENZODIAZEPINES SCREEN URINE NEGATIVE (NEGATIVE); CANNABINOID SCREEN, URINE NEGATIVE (NEGATIVE); COCAINE SCREEN URINE NEGATIVE (NEGATIVE); METHADONE STAT NEGATIVE (NEGATIVE); METHAMPHETAMINE SCREEN URINE S NEGATIVE (NEGATIVE); OPIATE SCREEN URINE NEGATIVE (NEGATIVE); OXYCODONE STAT NEGATIVE (NEGATIVE); PROPOXYPHENE STAT NEGATIVE (NEGATIVE); SQUAMOUS EPITHELIAL CELL,UR RARE /HPF; TRICYCLIC ANTIDEPRESSANTS SCRE NEGATIVE (NEGATIVE)
[2019-10-12 16:03] LABS: ALANINE AMINOTRANSFERASE 63 U/L (0-55); ALBUMIN 4.6 GM/DL (3.2-4.5); ALKALINE PHOSPHATASE 81 U/L (40-136); BILIRUBIN,TOTAL 0.2 MG/DL (0.1-1.0); BUN/CREATININE RATIO 8; CALCIUM 9.3 MG/DL (8.5-10.1); CARBON DIOXIDE 20 MMOL/L (21-32); CHLORIDE 107 MMOL/L (98-107); CREATININE SERUM 0.89 MG/DL (0.60-1.30); GFR ESTIMATED > 60; GLUCOSE 111 MG/DL (70-105); POTASSIUM 3.9 MMOL/L (3.6-5.0); SODIUM 140 MMOL/L (135-145); TOTAL PROTEIN 7.6 GM/DL (6.4-8.2)
[2019-10-12 16:05] LABS: ACETAMINOPHEN < 10 UG/ML (10-30)
[2019-10-12] MEDS ORDERED: LACTATED RINGERS 1,000 ML IV ONE (16:13)
[2019-10-12 16:41] LABS: BASOPHILS % (MANUAL) 1 %; LYMPHOCYTES % (MANUAL) 19 %; MONOCYTES % (MANUAL) 6 %; NEUTROPHILS % (MANUAL) 74 %; RBC MORPH NORMAL
--- NOTE | 2019-10-12 17:39 | ED Psychosocial ---
General Chief Complaint: Substance Abuse Stated Complaint: ETOH Nursing Triage Note: PT TO [facility] BY EMS FROM [facility] WITH COMPLAINT OF BEING DRUNK. PT DRANK 2 BOTTLES OF WHISKEY THIS MORNING. PT WAS PICKED UP FROM HIS ADDICTION MEETING. History of Present Illness Date Seen by Provider: Oct 12, 2019 Time Seen by Provider: 15:05 Initial Comments 39-year-old male brought here by EMS from [facility] where he was found intoxicated in the waiting room. The patient is alert, he is oriented to person and year. It is reported he attended an AA meeting at [facility] from 9:30-11 this am. Then left and he reports drinking an undetermined amount of Whiskey, then returning to [facility]. Patient is well known to this ED related to his alcoholism. He denies wanting to go to rehabilitation at this time. He requesting discharge however he is willing to stay for labs and IV fluids. No family members present with the patient. Timing/Duration: this afternoon Associated Symptoms: denies symptoms Allergies and Home Medications Allergies Coded Allergies: buspirone (Unverified Adverse Reaction, Severe, CAUSED SEIZURES, 03/17/19) Home Medications Albuterol Sulfate 6.7 Gm Hfa.aer.ad, 2 PUFF INH QID PRN for SHORTNESS OF BREATH, (Reported) Amlodipine Besylate 10 Mg Tablet, 10 MG PO DAILY, (Reported) LAST FILLED #30 04-29-19 Fluticasone/Salmeterol 1 Each Blst.w.dev, 1 PUFF IH BID, (Reported) LAST FILLED #60 05-20-19 Hyoscyamine Sulfate 0.125 Mg Tab.subl, 1-2 TAB SL Q4H Prescribed by: JACKELYN MCKENZIE on 09/22/19 1410 Lorazepam 0.5 Mg Tablet, 0.5 MG PO Q6H PRN for ANXIETY Prescribed by: CHUCK BROOKS on 09/28/19 1656 Ondansetron 8 Mg Tab.rapdis, 8 MG PO Q6H Prescribed by: JACKELYN MCKENZIE on 09/22/19 1410 Pantoprazole Sodium 40 Mg Tablet.dr, 40 MG PO DAILY, (Reported) LAST FILLED #30 04-14-19 Pantoprazole Sodium 40 Mg Tablet.dr, 40 MG PO DAILY Prescribed by: JACKELYN MCKENZIE on 09/22/19 1410 Sucralfate 1 Gm Tablet, 1 GM PO QIDACHS Prescribed by: JACKELYN MCKENZIE on 09/22/19 1410 Patient Home Medication List Home Medication List Reviewed: Yes Review of Systems Constitutional: no symptoms reported, see HPI Psychiatric/Neurological: See HPI, Other (acute alcohol intoxication) All Other Systems Reviewed Negative Unless Noted: Yes Past Dublwzc-Essyuq-Vdmchw Hx Past Med/Social Hx: Reviewed Nursing Past Med/Soc Hx Patient Social History Alcohol Use: Regular Use Number of Drinks Today: 2 Alcohol Beverage of Choice: Beer, Whiskey Recreational Drug Use: No Drug of Choice: HX COCAINE AND THC USE Smoking Status: Former Smoker Type Used: Cigarettes, Smokeless Tobacco Former Smoker, Quit: Mar 17, 2017 2nd Hand Smoke Exposure: Yes Recent Foreign Travel: No Contact w/Someone Who Travel: No Recent Infectious Disease Expo: No Recent Hopitalizations: No Immunizations Up To Date Tetanus Booster (TDap): More than 5yrs PED Vaccines UTD: No Date of Pneumonia Vaccine: Jul 26, 2014 Date of Influenza Vaccine: Jun 15, 2019 Seasonal Allergies Seasonal Allergies: Yes Past Medical History Surgeries: Yes (EGD 03/2019) Respiratory: Yes COPD, Emphysema Cardiac: Yes Hypertension Neurological: Yes Seizure Disorder Reproductive Disorders: No Sexually Transmitted Disease: No HIV/AIDS: No Genitourinary: No Gastrointestinal: Yes (GASTRITIS) Gastroesophageal Reflux, Liver Disease/Jaundice, Cirrhosis Musculoskeletal: No Endocrine: No HEENT: No Loss of Vision: Denies Hearing Impairment: Denies Cancer: No Psychosocial: Yes (POLYSUBSTANCE ABUSE. ) Sleep Difficulties, Anxiety, Suicide Attempts, Depression Integumentary: No Blood Disorders: No Adverse Reaction/Blood Tranf: No (N/A) Family Medical History Congestive heart failure 03 FATHER History of - disorder 03 MOTHER (SPINAL TUMORS) Myocardial infarction 03 FATHER Seizure disorder 09 BROTHER Heart Disease, Cancer, CAD Under 55 Years Old, CAD Over 55 Years Old, COPD, Diabetes, Hypertension, Renal Disease, Other Conditions/Hx Physical Exam Vital Signs - First Documented 10/12/19 15:05 Pulse 94 Resp 20 B/P (MAP) 110/67 (81) Pulse Ox 95 O2 Delivery Room Air Capillary Refill : Less Than 3 Seconds Height, Weight, BMI Height: 5'9.00" Weight: 205lbs. 2.0oz. 93.820484gr; 25.00 BMI Method:Stated General Appearance: WD/WN, no apparent distress HEENT: PERRL/EOMI, normal ENT inspection, TMs normal, pharynx normal Neck: non-tender, full range of motion, supple, normal inspection Respiratory: chest non-tender, lungs clear, normal breath sounds Cardiovascular: normal peripheral pulses, regular rate, rhythm Gastrointestinal: normal bowel sounds, non tender, soft Neurologic/Psychiatric: no motor/sensory deficits, alert, oriented x 3 Appearance/Memory: impaired insight (secondary to alcohol intoxication) Behavior/Eye Contact: cooperative, good eye contact, decreased rate of speech; No belligerent, No compulsive; uncooperative Skin: normal color, warm/dry Progress/Results/Core Measures Results/Orders Lab Results Laboratory Tests Test 10/12/19 15:14 Range/Units White Blood Count 14.8 H 4.3-11.0 10^3/uL Red Blood Count 4.69 4.35-5.85 10^6/uL Hemoglobin 15.1 13.3-17.7 G/DL Hematocrit 46 40-54 % Mean Corpuscular Volume 97 80-99 FL Mean Corpuscular Hemoglobin 32 25-34 PG Mean Corpuscular Hemoglobin Concent 33 32-36 G/DL Red Cell Distribution Width 13.6 10.0-14.5 % Platelet Count 287 130-400 10^3/uL Mean Platelet Volume 9.4 7.4-10.4 FL Neutrophils (%) (Auto) 74 42-75 % Lymphocytes (%) (Auto) 17 12-44 % Monocytes (%) (Auto) 8 0-12 % Eosinophils (%) (Auto) 0 0-10 % Basophils (%) (Auto) 1 0-10 % Neutrophils # (Auto) 11.0 H 1.8-7.8 X 10^3 Lymphocytes # (Auto) 2.5 1.0-4.0 X 10^3 Monocytes # (Auto) 1.2 H 0.0-1.0 X 10^3 Eosinophils # (Auto) 0.0 0.0-0.3 10^3/uL Basophils # (Auto) 0.1 0.0-0.1 10^3/uL Neutrophils % (Manual) 74 % Lymphocytes % (Manual) 19 % Monocytes % (Manual) 6 % Basophils % (Manual) 1 % Blood Morphology Comment NORMAL Urine Color YELLOW Urine Clarity CLEAR Urine pH 6.0 5-9 Urine Specific [place] <=1.005 1.016-1.022 Urine Protein NEGATIVE NEGATIVE Urine Glucose (UA) NEGATIVE NEGATIVE Urine Ketones NEGATIVE NEGATIVE Urine Nitrite NEGATIVE NEGATIVE Urine Bilirubin NEGATIVE NEGATIVE Urine Urobilinogen 0.2 < = 1.0 MG/DL Urine Leukocyte Esterase NEGATIVE NEGATIVE Urine RBC (Auto) NEGATIVE NEGATIVE Urine RBC NONE /HPF Urine WBC NONE /HPF Urine Squamous Epithelial Cells RARE /HPF Urine Crystals NONE /LPF Urine Bacteria NEGATIVE /HPF Urine Casts NONE /LPF Urine Mucus NEGATIVE /LPF Urine Culture Indicated NO Sodium Level 140 135-145 MMOL/L Potassium Level 3.9 3.6-5.0 MMOL/L Chloride Level 107 98-107 MMOL/L Carbon Dioxide Level 20 L 21-32 MMOL/L Anion Gap 13 5-14 MMOL/L Blood Urea Nitrogen 7 7-18 MG/DL Creatinine 0.89 0.60-1.30 MG/DL Estimat Glomerular Filtration Rate > 60 BUN/Creatinine Ratio 8 Glucose Level 111 H 70-105 MG/DL Calcium Level 9.3 8.5-10.1 MG/DL Corrected Calcium 8.5-10.1 MG/DL Total Bilirubin 0.2 0.1-1.0 MG/DL Aspartate Amino Transf (AST/SGOT) 53 H 5-34 U/L Alanine Aminotransferase (ALT/SGPT) 63 H 0-55 U/L Alkaline Phosphatase 81 40-136 U/L Total Protein 7.6 6.4-8.2 GM/DL Albumin 4.6 H 3.2-4.5 GM/DL Urine Opiates Screen NEGATIVE NEGATIVE Urine Oxycodone Screen NEGATIVE NEGATIVE Urine Methadone Screen NEGATIVE NEGATIVE Urine Propoxyphene Screen NEGATIVE NEGATIVE Acetaminophen Level < 10 L 10-30 UG/ML Urine Barbiturates Screen NEGATIVE NEGATIVE Ur Tricyclic Antidepressants Screen NEGATIVE NEGATIVE Urine Phencyclidine Screen NEGATIVE NEGATIVE Urine Amphetamines Screen NEGATIVE NEGATIVE Urine Methamphetamines Screen NEGATIVE NEGATIVE Urine Benzodiazepines Screen NEGATIVE NEGATIVE Urine Cocaine Screen NEGATIVE NEGATIVE Urine Cannabinoids Screen NEGATIVE NEGATIVE Serum Alcohol 351 *H <10 MG/DL My Orders Orders - KENZIE DAVIES Acetaminophen (10/12/19 15:20) Alcohol (10/12/19 15:20) Cbc With Automated Diff (10/12/19 15:20) Comprehensive Metabolic Panel (10/12/19 15:20) Drug Screen Stat (Urine) (10/12/19 15:20) Ua Culture If Indicated (10/12/19 15:20) Thiamine Injection (Vitamin B-1 Injectio (10/12/19 15:20) Manual Differential (10/12/19 15:14) Ed Iv/Invasive Line Start (10/12/19 16:13) Lactated Ringers (Lr 1000 Ml Iv Solution (10/12/19 16:13) Medications Given in ED Current Medications Medications Dose Ordered Sig/Gallito Route Start Time Stop Time Status Last Admin Dose Admin Lactated Ringer's 1,000 ml @ 0 mls/hr Q0M ONCE IV 10/12/19 16:13 10/12/19 16:14 DC 10/12/19 16:55 1,000 MLS/HR Vital Signs/I&O 10/12/19 10/12/19 15:05 17:55 Pulse 94 94 Resp 20 20 B/P (MAP) 110/67 (81) 115/73 (81) Pulse Ox 95 95 O2 Delivery Room Air Blood Pressure Mean: 81 Progress Progress Note : Time: 15:05 Progress Note Patient seen and evaluated, obtained urine and will get blood for lab, banana bag 1 L per IV. 1545 patient has to be redirected to remain in bed multiple times. Cooperative with providers. 1600 Patient's mother called, she reports he is supposed to be placed at [facility] by [facility]. She is not willing to come get him. 1630 Spoke to [facility], they report the patient opted for outpatient therapy and did not wish to go to [facility], so they have not tried to secure a room for him. Will give 1 L LR, per IV. 1645 Spoke to patient's mother, she is willing to come get him and keep him overnight. He is cooperative and requesting d/c. Patient is alert and oriented, answering questions appropriately. 1730 discharge instructions and return precautions reviewed with the patient. All questions. Departure Impression Primary Impression: Acute alcoholic intoxication Qualified Codes: F10.920 - Alcohol use, unspecified with intoxication, uncom plicated Additional Impression: Alcohol abuse Disposition: 01 HOME, SELF-CARE Condition: Stable Departure-Patient Inst. Decision time for Depature: 17:30 Referrals: [facility] (PCP) Primary Care Physician [facility] (Family) Primary Care Physician Patient Instructions: Alcohol Abuse and Alcoholism (DC) Add. Discharge Instructions: Continue attending your outpatient alcohol treatment appointments. Do not drink any alcohol. Drink 16 ounces of water every 2 hours while awake. Follow-up at [facility] or [facility] for rehabilitation. Call Ally at [facility] tomorrow, [phone] extension [phone]. Return to the emergency department for new, urgent health care needs. All discharge instructions reviewed with patient and/or family. Voiced understanding. Copy Copies To 1: LOGAN LOPEZ MD, AMY ARNP Oct 12, 2019 17:38
[2019-10-12 17:55] VITALS: BP 115/73
== END 2019-10-12 17:55 | disposition home or self-care (01) ==
LOC: EDUNIT# 15:02 → ER 15:03
DX: F10.129 Alcohol abuse with intoxication, unspecified (principal); J43.9 Emphysema, unspecified; I10 Essential (primary) hypertension; G40.909 Epilepsy, unspecified, not intractable, without status epilepticus; F41.9 Anxiety disorder, unspecified; F32.9 Major depressive disorder, single episode, unspecified; K21.9 Gastro-esophageal reflux disease without esophagitis; Z88.8 Allergy status to other drugs, medicaments and biological substances; Z79.51 Long term (current) use of inhaled steroids; Z87.891 Personal history of nicotine dependence; Z77.22 Contact with and (suspected) exposure to environmental tobacco smoke (acute) (chronic); Z82.49 Family history of ischemic heart disease and other diseases of the circulatory system; Y90.8 Blood alcohol level of 240 mg/100 ml or more
CPT/HCPCS: 36415; 80053; 80306; 80320; 80329; 81000; 85007; 85027; 96365